=== PATIENT | female | born 1995 | race Caucasian/White ===

== ENCOUNTER 2020-04-05 09:38 | Outpatient (REF) | payer OTHER, SELFPAY ==
[2020-04-05 12:21] LABS: Vitamin B12 610 pg/mL (200-900)
[2020-04-08 14:52] LABS: Vitamin D 25-OH, D2 16 ng/mL; Vitamin D 25-OH, D3 15 ng/mL; Vitamin D 25-OH, Total 31 ng/mL (30-100)
== END 2020-04-05 09:39 | disposition home or self-care (01) ==
LOC: HO.LAB 09:38
PROVIDERS: PCP Internal Medicine; Visit Provider Hospitalist
DX: R20.2 Paresthesia of skin (principal)
CPT/HCPCS: 82306; 82607

== ENCOUNTER 2020-04-08 16:55 | Outpatient (REF) | payer OTHER, SELFPAY | END 2020-04-08 16:56 | disposition home or self-care (01) | LOC: HO.LNP 16:55 | PROVIDERS: Visit Provider Hospitalist | DX: Z20.828 Contact with and (suspected) exposure to other viral communicable diseases (principal) | CPT/HCPCS: U0003 ==

== ENCOUNTER 2020-04-20 12:51 | Outpatient (REF) | payer OTHER, SELFPAY | END 2020-04-20 12:52 | disposition home or self-care (01) | LOC: HO.HMGCLDS 12:51 | PROVIDERS: PCP Internal Medicine; Visit Provider Internal Medicine | DX: Z20.828 Contact with and (suspected) exposure to other viral communicable diseases (principal) | CPT/HCPCS: C9803; U0003 ==

== ENCOUNTER 2020-04-21 18:10 | Emergency (ER) | payer OTHER, SELFPAY ==
[2020-04-21 18:23] VITALS: BP 123/70; PULSE 80; RESP 16; TEMP 36.6; O2SAT 98; BMI 34.9
--- NOTE | 2020-04-21 18:58 | ECG_ITS ---
Test Reason : DIZZINESS Blood Pressure : / mmHG Vent. Rate : 071 BPM Atrial Rate : 071 BPM P-R Int : 146 ms QRS Dur : 084 ms QT Int : 390 ms P-R-T Axes : 044 016 021 degrees QTc Int : 423 ms Normal sinus rhythm Normal ECG When compared with ECG of 18-DEC-2019 10:12, No significant change was found Referred By: Davis Torres Electronically Signed By:ANGELO MALDONADO MD
--- NOTE | 2020-04-21 18:58 | CT_ITS ---
EXAMINATION: CT HEAD WITHOUT CONTRAST CLINICAL INFORMATION: Headache. Dizziness. COMPARISON: CT head 12/18/2019 TECHNIQUE: Contiguous axial imaging was performed from the skull base to vertex without intravenous administration of contrast. Coronal and sagittal reformatted images are performed at the CT scanner This CT examination was performed using dose optimization techniques as appropriate, variously including the following: *Automated exposure control *Adjustment of mA and/or kV according to patient size (this includes techniques or standardized protocols for targeted exams where dose is matched to indication/reason for exam; i.e. extremities or head) *Use of iterative reconstruction technique DLP: 1057 mGy-cm FINDINGS: There is no evidence of acute intracranial hemorrhage or territorial infarction. No abnormal mass effect or midline shift is seen. Krishna to white matter differentiation is well preserved. No extra-axial fluid collections are identified. The ventricles are normal in size. There is no abnormal attenuation within the brain parenchyma. The osseous structures and soft tissues are normal. The mastoid air cells and visualized portions of the paranasal sinuses are well aerated. CT/CT head/brain wo con IMPRESSION: No acute intracranial pathology.
[2020-04-21 19:52] VITALS: BP 102/65; PULSE 77; RESP 14; TEMP 36.7; O2SAT 99
[2020-04-21 20:11] LABS: Basophils Percent Auto 0.4 % (0-2); Eosinophils Absolute Auto 0.2 X10*3/uL (0.0-0.4); Eosinophils Percent Auto 2.8 % (0-4); Hematocrit 37.5 % (37-47); Hemoglobin 12.1 g/dl (12.0-16.0); Imm Gran Abs Auto 0.01 X10*3/uL (0.00-0.03); Imm Gran Pct Auto 0.2 % (0.0-0.4); Lymphocytes Absolute Auto 1.7 X10*3/uL (1.2-4.9); Lymphocytes Percent Auto 30.7 % (20-40); MANUAL DIFF FLAG NO; Mean Corpuscular HGB Conc 32.3 g/dl (31.0-35.0); Mean Corpuscular Hemoglobin 28.9 pg (27.0-33.0); Mean Corpuscular Volume 89.7 fL (80-98); Mean Platelet Volume 9.9 fL (9.4-12.3); Monocytes Absolute Auto 0.5 X10*3/uL (0.1-1.2); Neutrophils Absolute Auto 3.3 X10*3/uL (2.0-8.3); Neutrophils Percent Auto 57.9 % (45-73); Platelet Count 239 X10*3/uL (160-400); Red Blood Count 4.18 X10*6/uL (4.20-5.50); Red Cell Distribution Width 12.8 % (11.0-16.0); White Blood Count 5.7 X10*3/uL (4.8-10.8)
[2020-04-21 20:13] LABS: Glucose Urine UA NEG (NEG); Leukocyte Esterase Urine 1+ (NEG); Nitrite Urine NEG (NEG); Urine Blood TRACE (NEG); Urine Ketones NEG (NEG); Urine Protein NEG (NEG-TRACE)
[2020-04-21 20:17] LABS: Appearance Urine CLEAR; Color Urine YELLOW
[2020-04-21 20:38] LABS: Alanine Aminotransferase 15 U/L (0-31); Albumin Level 4.1 g/dL (3.5-5.0); Alkaline Phosphatase 76 U/L (39-117); Anion Gap 10 (12-20); Aspartate Amino Transferase 11 U/L (5-31); Bilirubin Total 0.3 mg/dL (0.0-1.0); Blood Urea Nitrogen 12 mg/dL (9-16); Calcium 8.8 mg/dL (8.4-10.2); Carbon Dioxide 27 mmol/L (22-29); Chloride 106 mmol/L (96-108); Creatinine Clr Calc Pharmacy 134.9; Estimated Glomerular Filt Rate > 60; Glucose Random 99 mg/dL (60-115); Magnesium 2.2 mg/dL (1.6-2.6); Sodium 139 mmol/L (135-145); Total Protein 7.1 g/dL (6.5-8.0)
[2020-04-21 20:42] LABS: Troponin-I High Sensitivity < 3.5 ng/L (<3.5-17.0)
[2020-04-21 20:46] LABS: Amphetamine Screen Urine Not Detected (Not Detect); Barbiturates, Urine Not Detected (Not Detect); Benzodiazepines Screen Urine Not Detected (Not Detect); Cannabinoid Screen Urine Not Detected (Not Detect); Cocaine Screen Urine Not Detected (Not Detect); Opiate Screen Urine Not Detected (Not Detect); Phencyclidine Screen Urine Not Detected (Not Detect)
[2020-04-21 20:50] LABS: Bacteria Urine 1+ /LPF; RBC Urine 0-2 /HPF (0); Squamous Epithelial Cell Urine TRACE /LPF
[2020-04-21 20:51] LABS: UPreg QC Valid YES; Urine Pregnancy NEGATIVE (NEGATIVE)
--- NOTE | 2020-04-21 20:54 | ED_ITS ---
HPI - Dizziness General Chief Complaint: Dizziness Stated Complaint: dizzyness Time Seen by Provider: 04/21/20 18:58 Source: patient Mode of arrival: ambulatory Limitations: no limitations History of Present Illness HPI Narrative: 24-year-old female who denies significant past medical history presents with complaint of ongoing headache and intermittent dizziness for several months. States sometimes she will feel like she can not focus and so her vision and her eyes will have a hard time doing this sometimes this will cause her to be unsteady on her feet. States she has told her doctor about these ongoing dizziness and headache a month or so back has an appointment coming up with neurologist on the 19 of May However given the continued symptoms from her come to the emergency room as she was worried. She denies any chest pain or shortness of breath. No lower extremity swelling. No history of CA. MD elicited complaint: dizziness and lightheadedness Pertinent past history: other ( migraine headache) Onset (ago): month(s) Timing: gradual onset Severity: moderate Description: sense of movement and lightheadedness History of similar symptoms: Yes Exacerbating factors: movement/ambulation and other ( some time focusing on for objects) Associated symptoms: denies other symptoms Associated neuro symptoms: diplopia Related Data Previous Rx's Medication Instructions Recorded ergocalciferol (vitamin D2) 1,250 1,250 mcg PO QWEEK 90 Days #13 cap 02/27/20 mcg (50,000 unit) capsule betamethasone, augmented 0.05 % 1 applic TOPICAL BID PRN #50 g 04/08/20 topical ointment Allergies Allergy/AdvReac Type Severity Reaction Status Date / Time metronidazole [METRONIDAZOLE] Allergy Mild HIVES Verified 04/21/20 18:25 Review of Systems Review of Systems: Constitutional: No Weight loss, No Fever, No Chills, No Night Sweats, No Fatigue, No Malaise ENT/Mouth: No Hearing loss, No Ear Pain, No Nasal Congestion, No Sinus Pain, No Hoarseness, No sore throat, No Rhinorrhea, No Swallowing Difficulty Eyes: No Eye Pain, No Swelling, No Redness, No Foreign Body, No Discharge, No Vision Changes Cardiovascular: No Chest Pain, No SOB, No Dyspnea on Exertion, No Orthopnea, No Edema, No Palpitations Respiratory: No Cough, No Sputum, No Wheezing, No Smoke Exposure, No Dyspnea Gastrointestinal: No Nausea, No Vomiting, No Diarrhea, No Constipation, No abdominal Pain, No Hematochezia, No Melena Genitourinary: no irregular bleeding, No Dysuria, No Urinary Frequency, No Hematuria, No Urinary Incontinence, No Urgency, No Flank Pain Musculoskeletal: No joint pain, No Myalgias, No Joint Swelling Skin: No Skin Lesions, No rash Neuro: No Weakness, No Numbness, No Paresthesias, No Loss of Consciousness, + Dizziness, No Headache Psych: No Social Issues Heme/Lymph: No Bruising, No Bleeding,No Lymphadenopathy Endocrine: No Polyuria, No Polydipsia, No Temperature Intolerance Yes all other systems are reviewed and are negative [facility] Social History Social History Alcohol intake: never Smoking Status: Never smoker Use of substances other than those prescribed or required for medical reasons: No Advance Directives: No Advance Directives Information Provided: Yes Physical Exam Vital Signs: Vital Signs: Last Vital Signs Temp 98.1 F 04/21/20 19:52 Pulse 77 04/21/20 19:52 Resp 14 04/21/20 19:52 BP 102/65 04/21/20 19:52 Pulse Ox 99 04/21/20 19:52 Body Mass Index 34.9 Reviewed Const: General: cooperative and healthy appearing; No acute distress or intoxicated appearing Nutritional Appearance: average body habitus Eugenio entation/consciousness: patient oriented x3 HENMT: Head: Yes normal to inspection Ears: hearing grossly normal bilaterally Eyes: General: appearance normal, both eyes and all related structures Visual Lozada: normal visual lozada by confrontation Neck: Neck: Yes normal visual inspection and No tender Thyroid: Thyroid normal Chest: Chest palpation & inspection: normal inspection of the chest Resp: Effort & Inspection: normal respiratory effort Auscultation: clear to auscultation bilaterally Cardio: Jugular venous distension: no JVD Rate: regular rate Rhythm: regular rhythm GI: Inspection: Yes normal to inspection Percussion: Yes normal to percussion Auscultation: normal bowel sounds : General: Yes no CVA tenderness Back/Spine/Pelvis: Back: no CVA tenderness Skin: General skin exam: no rashes or lesions noted Neuro: General: patient oriented x3 Extrem: General: Yes normal to inspection NIH Stroke Scale Internal: Initial- Upon Arrival Level of Consciousness: Alert Level of Consciousness Questions: Answers both questions correctly Level of Consciousness Commands: Performs both tasks correctly Best Gaze: Normal Visual: No visual loss Facial Palsy: Normal Motor Arm (Right): No drift Motor Arm (Left): No drift Motor Leg (Right): No drift Motor Leg (Left): No drift Limb Ataxia: Absent Sensory: Normal Best Language: No aphasia Dysarthia: Normal Extinction and Inattention: No abnormality Score: 0 Course Course Course Narrative: labs overall stable, TSH within normal limits. UA negative. negative. Electrolytes, troponin negative. CT of the head is done and pending results anticipated discharge home with follow-up with neural as scheduled and as well as optometry for vision testing this was reviewed with her. pending CT results at this time sign-out to Nettie LYNCH if CT is negative patient go home. MDM - Dizziness MDM Narrative Medical decision making narrative: additional differential include myopia will check labs head CT rule out mass. Low suspicion for acute intracranial process. Risks benefits of radiation reviewed patient she verbalized understanding. Differential Diagnosis Differential diagnosis: Likely benign paroxysmal positional vertigo; Unlikely adverse reaction to drug, orthostatic hypotension, vertebral basilar insufficiency, cerebrovascular accident, acute vestibular neuronitis and transient cerebral ischemia Medical Records Attestation: I reviewed the patient's medical records. Lab Data Attestation: I reviewed the patient's lab results. Result diagrams: 04/21/20 20:04 04/21/20 20:04 Labs: Lab Results 04/21/20 04/21/20 04/21/20 Range/Units 20:04 20:04 20:04 WBC 5.7 (4.8-10.8) X10*3/uL RBC 4.18 L (4.20-5.50) X10*6/uL Hgb 12.1 (12.0-16.0) g/dl Hct 37.5 (37-47) % MCV 89.7 (80-98) fL MCH 28.9 (27.0-33.0) pg MCHC 32.3 (31.0-35.0) g/dl RDW 12.8 (11.0-16.0) % Plt Count 239 (160-400) X10*3/uL MPV 9.9 (9.4-12.3) fL Immature Gran % (Auto) 0.2 (0.0-0.4) % Neut % (Auto) 57.9 (45-73) % Lymph % (Auto) 30.7 (20-40) % Pratt % (Auto) 8.0 (2-11) % Eos % (Auto) 2.8 (0-4) % Baso % (Auto) 0.4 (0-2) % Lymph # (Auto) 1.7 (1.2-4.9) X10*3/uL Pratt # (Auto) 0.5 (0.1-1.2) X10*3/uL Eos # (Auto) 0.2 (0.0-0.4) X10*3/uL Baso # (Auto) 0.0 (0.0-0.2) X10*3/uL Abs Immat Gran (auto) 0.01 (0.00-0.03) X10*3/uL Absolute Neuts (auto) 3.3 (2.0-8.3) X10*3/uL Absolute Nucleated RBC 0.000 (0.0-0.012) X10*3/uL Nucleated RBC % (auto) 0.0 (0.0-0.2) /100WBC Sodium 139 (135-145) mmol/L Potassium 4.0 (3.3-5.1) mmol/l Chloride 106 (96-108) mmol/L Carbon Dioxide 27 (22-29) mmol/L Anion Gap 10 L (12-20) BUN 12 (9-16) mg/dL Creatinine 0.74 (0.5-1.4) mg/dL Estim Creat Clear Calc 134.9 Estimated GFR > 60 Random Glucose 99 (60-115) mg/dL Calcium 8.8 (8.4-10.2) mg/dL Magnesium 2.2 (1.6-2.6) mg/dL Total Bilirubin 0.3 (0.0-1.0) mg/dL AST 11 (5-31) U/L ALT 15 (0-31) U/L Alkaline Phosphatase 76 (39-117) U/L Troponin I High Sens < 3.5 (<3.5-17.0) ng/L Total Protein 7.1 (6.5-8.0) g/dL Albumin 4.1 (3.5-5.0) g/dL Urine Color Urine Appearance Urine pH (5.0-8.0) Ur Specific [place] (1.005-1.025) Urine Protein (NEG-TRACE) MG/DL Urine Glucose (UA) (NEG) MG/DL Urine Ketones (NEG) MG/DL Urine Blood (NEG) Urine Nitrite (NEG) Ur Leukocyte Esterase (NEG) Urine RBC (0) /HPF Urine WBC (0-4) /HPF Ur Squamous Epith Cells /LPF Urine Bacteria /LPF Urine Test (NEGATIVE) Urine Opiates Screen (Not Detect) Ur Barbiturates Screen (Not Detect) Ur Phencyclidine Scrn (Not Detect) Ur Amphetamines Screen (Not Detect) U Benzodiazepines Scrn (Not Detect) Urine Cocaine Screen (Not Detect) U Marijuana (THC) Screen (Not Detect) 04/21/20 04/21/20 Range/Units 20:04 20:04 WBC (4.8-10.8) X10*3/uL RBC (4.20-5.50) X10*6/uL Hgb (12.0-16.0) g/dl Hct (37-47) % MCV (80-98) fL MCH (27.0-33.0) pg MCHC (31.0-35.0) g/dl RDW (11.0-16.0) % Plt Count (160-400) X10*3/uL MPV (9.4-12.3) fL Immature Gran % (Auto) (0.0-0.4) % Neut % (Auto) (45-73) % Lymph % (Auto) (20-40) % Pratt % (Auto) (2-11) % Eos % (Auto) (0-4) % Baso % (Auto) (0-2) % Lymph # (Auto) (1.2-4.9) X10*3/uL Pratt # (Auto) (0.1-1.2) X10*3/uL Eos # (Auto) (0.0-0.4) X10*3/uL Baso # (Auto) (0.0-0.2) X10*3/uL Abs Immat Gran (auto) (0.00-0.03) X10*3/uL Absolute Neuts (auto) (2.0-8.3) X10*3/uL Absolute Nucleated RBC (0.0-0.012) X10*3/uL Nucleated RBC % (auto) (0.0-0.2) /100WBC Sodium (135-145) mmol/L Potassium (3.3-5.1) mmol/l Chloride (96-108) mmol/L Carbon Dioxide (22-29) mmol/L Anion Gap (12-20) BUN (9-16) mg/dL Creatinine (0.5-1.4) mg/dL Estim Creat Clear Calc Estimated GFR Random Glucose (60-115) mg/dL Calcium (8.4-10.2) mg/dL Magnesium (1.6-2.6) mg/dL Total Bilirubin (0.0-1.0) mg/dL AST (5-31) U/L ALT (0-31) U/L Alkaline Phosphatase (39-117) U/L Troponin I High Sens (<3.5-17.0) ng/L Total Protein (6.5-8.0) g/dL Albumin (3.5-5.0) g/dL Urine Color YELLOW Urine Appearance CLEAR Urine pH 7.0 (5.0-8.0) Ur Specific [place] 1.010 (1.005-1.025) Urine Protein NEG (NEG-TRACE) MG/DL Urine Glucose (UA) NEG (NEG) MG/DL Urine Ketones NEG (NEG) MG/DL Urine Blood TRACE (NEG) Urine Nitrite NEG (NEG) Ur Leukocyte Esterase 1+ H (NEG) Urine RBC 0-2 (0) /HPF Urine WBC 1-4 (0-4) /HPF Ur Squamous Epith Cells TRACE /LPF Urine Bacteria 1+ /LPF Urine Test NEGATIVE (NEGATIVE) Urine Opiates Screen Not Detected (Not Detect) Ur Barbiturates Screen Not Detected (Not Detect) Ur Phencyclidine Scrn Not Detected (Not Detect) Ur Amphetamines Screen Not Detected (Not Detect) U Benzodiazepines Scrn Not Detected (Not Detect) Urine Cocaine Screen Not Detected (Not Detect) U Marijuana (THC) Screen Not Detected (Not Detect) Discharge Plan Discharge Clinical Impression: Dizziness, Vision abnormalities Patient Disposition: Home, Self-Care Instructions: Dizziness (ED), Blurred Vision (ED) Prescriptions: No Action ergocalciferol (vitamin D2) 1,250 mcg (50,000 unit) capsule 1,250 mcg PO QWEEK 90 Days Qty: 13 RF: 0 betamethasone, augmented [Diprolene (augmented)] 0.05 % ointment 1 applic topical BID PRN (Reason: allergic reaction) Qty: 50 RF: 2 Referrals: Fartun Grady MD [Primary Care Provider] - 5 days ED Physician,Generic [Emergency Provider] - 1 week ( Follow-up with ophthalmology as discussed Follow-up with Neurology as planned )
[2020-04-21 20:58] LABS: Thyroid Stimulating Hormone 0.95 uIU/mL (0.32-4.0)
[2020-04-21 22:00] VITALS: BP 102/65; PULSE 77; RESP 14; TEMP 36.7; O2SAT 99
== END 2020-04-21 22:46 | disposition home or self-care (01) ==
PROVIDERS: Nurse Practitioner Primary Care; Emergency Provider Emergency Medicine Emergency Medical Services; PCP Internal Medicine
DX: R42 Dizziness and giddiness (principal); H53.8 Other visual disturbances; H53.2 Diplopia; G43.909 Migraine, unspecified, not intractable, without status migrainosus
CPT/HCPCS: 36415; 70450; 80053; 80307; 81001; 81025; 83735; 84443; 84484; 85025; 87086; 93005; 99284

== ENCOUNTER → 2020-05-04 08:11 | Outpatient (BNVA) | payer OTHER, SELFPAY | PROVIDERS: PCP Internal Medicine; Referring Provider Internal Medicine; Visit Provider Psychiatry & Neurology Neurology | DX: Z76.89 Persons encountering health services in other specified circumstances (principal) ==

== ENCOUNTER 2020-05-21 20:23 | Emergency (ER) | payer OTHER, SELFPAY ==
[2020-05-21 20:28] VITALS: BP 112/78; PULSE 84; RESP 16; TEMP 37.2; O2SAT 99; BMI 34.9
--- NOTE | 2020-05-21 20:37 | CT_ITS ---
EXAMINATION: CT HEAD WITHOUT CONTRAST CLINICAL INFORMATION: Headache. COMPARISON: CT brain dated 04/21/2020. TECHNIQUE: Contiguous axial imaging was performed from the skull base to vertex without intravenous administration of contrast. This CT examination was performed using dose optimization techniques as appropriate, variously including the following: *Automated exposure control *Adjustment of mA and/or kV according to patient size (this includes techniques or standardized protocols for targeted exams where dose is matched to indication/reason for exam; i.e. extremities or head) *Use of iterative reconstruction technique DLP: 708 mGy-cm. FINDINGS: There is no evidence of acute intracranial hemorrhage or territorial infarction. No abnormal mass effect or midline shift is seen. Krishna to white matter differentiation is well preserved. No extra-axial fluid collections are identified. The ventricles are normal in size. There is no abnormal attenuation within the brain parenchyma. The osseous structures and soft tissues are normal. The mastoid air cells and visualized portions of the paranasal sinuses are well aerated. CT/CT head/brain wo con IMPRESSION: No acute intracranial pathology.
--- NOTE | 2020-05-21 20:38 | ED.HA ---
HPI - Headache General Chief Complaint: Headache Stated Complaint: headache x 3 days/nausea Time Seen by Provider: 05/21/20 20:37 Source: patient and EMS Mode of arrival: EMS Limitations: no limitations History of Present Illness MD elicited complaint: headache Pertinent past history: other (anxiety) Onset (ago): day(s) (3) Onset description: gradually and while at rest Location: right and temporal Severity: severe Quality & Timing: aching, constant and progressively worsening Exacerbating factors: other (under significant amount of stress, just started citalopram 5mg yesterday for her anxiety/depression) Relieving factors: nothing and other (has not tried any OTC medications) Context: occurred at rest Associated symptoms: other (anxiety) Treatments prior to arrival: none Related Data Home Medications Medication Instructions Recorded Confirmed albuterol sulfate 90 mcg/actuation INHALATION 05/06/20 05/06/20 aerosol inhaler Previous Rx's Medication Instructions Recorded betamethasone, augmented 0.05 % 1 applic TOPICAL BID PRN #50 g 04/08/20 topical ointment hydroxyzine HCl 25 mg PO TID PRN #30 tab 05/21/20 Allergies Allergy/AdvReac Type Severity Reaction Status Date / Time metronidazole [METRONIDAZOLE] Allergy Mild HIVES Verified 05/06/20 15:26 Review of Systems Review of Systems: Constitutional : No Fever, No Chills, No Fatigue ENT/Mouth : No sore throat, No Rhinorrhea Eyes: No Eye Pain, No Swelling, No Redness Cardiovascular : No Chest Pain, No SOB, No Dyspnea on Exertion Respiratory : No Cough, No Sputum Gastrointestinal : No Nausea, No Vomiting, No Diarrhea, No abdominal Pain Genitourinary : No Dysuria, No Urinary Frequency, No Hematuria, Musculoskeletal : No joint pain, No Myalgias, No Joint Swelling Skin : No Skin Lesions, No rash Neuro : No Weakness, No Numbness, No Dizziness, positive Headache Psych : pos Anxiety/Panic, No Depression Heme/Lymph: No Bruising, No Bleeding,No Lymphadenopathy Endocrine : No Polyuria, No Polydipsia All other systems reviewed and are negative [facility] Past Medical History Attestation statement: The following information was validated with the patient. Medical History Anxiety Depression Dermatitis Eye strain, bilateral Insomnia Intermittent asthma without complication Irregular menstrual bleeding Paresthesia of bilateral legs Paresthesias Surgical History No pertinent past surgical history Family History Family History Father Asthma Mother Asthma Hypothyroidism Brother Depression Social History Social History Alcohol intake: never Smoking Status: Never smoker Use of substances other than those prescribed or required for medical reasons: No Advance Directives: No Advance Directives Information Provided: No Physical Exam Vital Signs: Vital Signs: Last Vital Signs Temp 99 F 05/21/20 20:28 Pulse 84 05/21/20 20:28 Resp 16 05/21/20 20:28 BP 112/78 05/21/20 20:28 Pulse Ox 99 05/21/20 20:28 Body Mass Index 34.9 Appearance: Alert. Oriented X3. No acute distress. Anxious, somewhat tearful when we discuss her anxiety/depression Eyes: Pupils equal, round and reactive to light. ENT: Pharynx normal. Neck: Normal inspection. Neck supple. no meningeal signs CVS: Normal heart rate and rhythm. Pulses normal. Respiratory: No respiratory distress. Breath sounds normal. Abdomen: Soft and non-tender. Skin: Skin warm and dry. Normal skin color. Normal skin turgor. Extremities: No lower extremity edema. No calf ttp Neuro: Oriented X 3. No motor deficit. No sensory deficit. Course Course Course Narrative: feels much better, stable for DC MDM - Headache MDM Narrative Medical decision making narrative: 25 yo female with anxiety, hx of headaches but not migraines here with gradual onset headache with no fever, no neuro findings, no AC therapy, seems like she is under significant amount of stress as when she is prompted about her anxiety she becomes tearful, given onset and duration doubt SAH and no fevers or meningeal signs doubt meningitis Lab Data Labs: Lab Results 05/21/20 Range/Units 21:23 Urine Test NEGATIVE (NEGATIVE) Discharge Plan Discharge Clinical Impression: Tension headache, Anxiety Patient Disposition: Home, Self-Care Instructions: Tension Headache (ED), Anxiety (ED) Additional Instructions: return to ED for any worsening symptoms or concerns Prescriptions: New hydroxyzine HCl 25 mg tablet 25 mg PO TID PRN (Reason: anxiety) Qty: 30 RF: 0 No Action albuterol sulfate 90 mcg/actuation HFA aerosol inhaler inhalation RF: 0 betamethasone, augmented [Diprolene (augmented)] 0.05 % ointment 1 applic topical BID PRN (Reason: allergic reaction) Qty: 50 RF: 2 Referrals: Physician,Unknown [Primary Care Provider] - 3 days (if not better) Stand Alone Forms: Work/School Release
[2020-05-21] MEDS: Acetaminophen 325 MG TABLET 650 MG PO (21:11)
[2020-05-21] MEDS: Ibuprofen 600 MG TABLET PO (21:12)
[2020-05-21] MEDS: LORazepam 1 MG TABLET PO (21:12)
[2020-05-21 21:30] LABS: UPreg QC Valid YES; Urine Pregnancy NEGATIVE (NEGATIVE)
[2020-05-21 22:13] VITALS: BP 114/77; PULSE 82; RESP 18; TEMP 37.1; O2SAT 96
[2020-05-21] MEDS: Magnesium Hydrox/Alum Hydrox 30 ML ORAL.SUSP PO (22:13)
== END 2020-05-21 22:22 | disposition home or self-care (01) ==
PROVIDERS: Emergency Provider Emergency Medicine
DX: G44.209 Tension-type headache, unspecified, not intractable (principal); F41.9 Anxiety disorder, unspecified
CPT/HCPCS: 70450; 81025; 99284

== ENCOUNTER 2020-06-02 12:59 | Outpatient (REF) | payer OTHER, SELFPAY ==
[2020-06-03 10:31] LABS: BV Int Neg Control Negative (Negative); BV Int Pos Control Positive (Positive)
[2020-06-03 18:52] LABS: C. trachomatis RNA TMA NOT DETECTED (NOT DETECTED); N. gonorrhoeae RNA TMA NOT DETECTED (NOT DETECTED)
== END 2020-06-02 13:00 | disposition home or self-care (01) ==
LOC: HO.LAB 12:59
PROVIDERS: Obstetrics & Gynecology; PCP Internal Medicine; Visit Provider Advanced Practice Midwife
DX: N93.9 Abnormal uterine and vaginal bleeding, unspecified (principal); N92.6 Irregular menstruation, unspecified; Z11.3 Encounter for screening for infections with a predominantly sexual mode of transmission
CPT/HCPCS: 36415; 87480; 87491; 87510; 87591; 87660; 99202

== ENCOUNTER 2020-06-07 20:51 | Emergency (ER) | payer OTHER, SELFPAY ==
[2020-06-07 21:14] VITALS: BP 107/72; PULSE 89; RESP 18; TEMP 36.4; O2SAT 98; BMI 34.6
[2020-06-07 22:54] LABS: MANUAL DIFF FLAG NO
[2020-06-07 22:55] LABS: Basophils Percent Auto 0.2 % (0-2); Eosinophils Absolute Auto 0.1 X10*3/uL (0.0-0.4); Hematocrit 41.6 % (37-47); Hemoglobin 13.3 g/dl (12.0-16.0); Imm Gran Abs Auto 0.02 X10*3/uL (0.00-0.03); Imm Gran Pct Auto 0.2 % (0.0-0.4); Lymphocytes Absolute Auto 1.6 X10*3/uL (1.2-4.9); Lymphocytes Percent Auto 16.8 % (20-40); Mean Corpuscular Hemoglobin 28.9 pg (27.0-33.0); Mean Corpuscular Volume 90.4 fL (80-98); Mean Platelet Volume 10.1 fL (9.4-12.3); Monocytes Absolute Auto 0.6 X10*3/uL (0.1-1.2); Neutrophils Absolute Auto 7.1 X10*3/uL (2.0-8.3); Neutrophils Percent Auto 75.8 % (45-73); Platelet Count 282 X10*3/uL (160-400); White Blood Count 9.3 X10*3/uL (4.8-10.8)
[2020-06-07 23:29] LABS: Anion Gap 15 (12-20); Blood Urea Nitrogen 12 mg/dL (9-16); Calcium 9.8 mg/dL (8.4-10.2); Carbon Dioxide 23 mmol/L (22-29); Chloride 106 mmol/L (96-108); Creatinine Clr Calc Pharmacy 126.2; Estimated Glomerular Filt Rate > 60; Glucose Random 93 mg/dL (60-115); Potassium 4.4 mmol/l (3.3-5.1); Sodium 140 mmol/L (135-145)
--- NOTE | 2020-06-08 00:39 | ED_ITS ---
HPI - Headache General Chief Complaint: Headache Stated Complaint: Headache Time Seen by Provider: 06/08/20 00:37 Source: patient Mode of arrival: ambulatory History of Present Illness HPI Narrative: This is a 25-year-old female with history of asthma who presents with ?months headache and a weird feeling in my head that I have discussed my primary care provider and was informed that I was anxious?. Patient describes the pain as coming all her bilateral shoulders into the neck area and extending over the portion of the back and top of her head. Patient denies any associated fevers, chills shortness of breath, photosensitivity, GI symptoms, symptoms changes in vision/speech, but states that she is concerned that she is having s troke-like symptoms. On review of prior visits and documentation patient has been evaluated for the sensations previously with negative workups. MD elicited complaint: headache Related Data Previous Rx's Medication Instructions Recorded betamethasone, augmented 0.05 % 1 applic TOPICAL BID PRN #50 g 04/08/20 topical ointment hydroxyzine HCl 25 mg PO TID PRN #30 tab 05/21/20 escitalopram oxalate 10 mg tablet 10 mg PO DAILY #30 tab 05/26/20 Allergies Allergy/AdvReac Type Severity Reaction Status Date / Time metronidazole [METRONIDAZOLE] Allergy Mild HIVES Verified 06/07/20 21:14 Review of Systems Review of Systems: Pertinent positives and negatives as stated per HPI 10 point review systems is otherwise negative. [facility] Past Medical History Source: nursing notes reviewed Medical History Anxiety Depression Dermatitis Eye strain, bilateral Generalized anxiety disorder Insomnia Intermittent asthma without complication Irregular menstrual bleeding Paresthesia of bilateral legs Paresthesias Surgical History No pertinent past surgical history Family History Family History Father Asthma Mother Asthma Hypothyroidism Brother Depression Social History Social History Alcohol intake: never Smoking Status: Never smoker Advance Directives: No Physical Exam Vital Signs: Vital Signs: Last Vital Signs Temp 97.6 F 06/07/20 21:14 Pulse 78 06/08/20 03:26 Resp 16 06/08/20 03:26 BP 117/73 06/08/20 03:26 Pulse Ox 97 06/08/20 03:26 Body Mass Index 34.6 VITAL SIGNS: Reviewed. GENERAL: Well developed, well nourished, in no acute distress. HEAD: Normocephalic/atraumatic, EYES: PERRLA, EOMI intact without paind EARS: Ext canals without abnormality, TMs non-bulging and non-erythematous NOSE: Nares patent bilateral OROPHARYNX: no oral lesions noted, posterior pharynx clear NECK: Supple, no adenopathy LUNGS: Normal breath sounds. No adventitious sounds or accessory muscle use. SpO2<98> CARDIOVASCULAR: Regular rate and rhythm without noted murmurs ABDOMEN: Soft, non-tender, non-distended with bowel sounds. NEUROLOGIC: Alert and oriented x 4. Strength and sensation to light touch were grossly intact x 4, no pronator drift, no facial asymmetry or sensory deficits. Course Course Course Narrative: A 25-year-old female with history and clinical presentation most consistent with a combination of anxiety as well as tension headache. There are no neurologic findings on clinical exam to from CT head and review of all investigations is negative for any acute findings to explain patient's symptoms. In addition, this is a meningitis given the duration of symptoms. Will treat with combination of analgesics as well as a IV fluid and re-evaluate. On re-evaluation patient has had complete resolution of her symptoms and was discharged home in stable condition. MDM - Headache Lab Data Result diagrams: 06/07/20 22:40 06/07/20 22:40 Labs: Lab Results 06/07/20 06/07/20 Range/Units 22:40 22:40 WBC 9.3 (4.8-10.8) X10*3/uL RBC 4.60 (4.20-5.50) X10*6/uL Hgb 13.3 (12.0-16.0) g/dl Hct 41.6 (37-47) % MCV 90.4 (80-98) fL MCH 28.9 (27.0-33.0) pg MCHC 32.0 (31.0-35.0) g/dl RDW 13.0 (11.0-16.0) % Plt Count 282 (160-400) X10*3/uL MPV 10.1 (9.4-12.3) fL Immature Gran % (Auto) 0.2 (0.0-0.4) % Neut % (Auto) 75.8 H (45-73) % Lymph % (Auto) 16.8 L (20-40) % [place] % (Auto) 6.0 (2-11) % Eos % (Auto) 1.0 (0-4) % Baso % (Auto) 0.2 (0-2) % Lymph # (Auto) 1.6 (1.2-4.9) X10*3/uL [place] # (Auto) 0.6 (0.1-1.2) X10*3/uL Eos # (Auto) 0.1 (0.0-0.4) X10*3/uL Baso # (Auto) 0.0 (0.0-0.2) X10*3/uL Abs Immat Gran (auto) 0.02 (0.00-0.03) X10*3/uL Absolute Neuts (auto) 7.1 (2.0-8.3) X10*3/uL Absolute Nucleated RBC 0.000 (0.0-0.012) X10*3/uL Nucleated RBC % (auto) 0.0 (0.0-0.2) /100WBC Sodium 140 (135-145) mmol/L Potassium 4.4 (3.3-5.1) mmol/l Chloride 106 (96-108) mmol/L Carbon Dioxide 23 (22-29) mmol/L Anion Gap 15 (12-20) BUN 12 (9-16) mg/dL Creatinine 0.78 (0.5-1.4) mg/dL Estim Creat Clear Calc 126.2 Estimated GFR > 60 Random Glucose 93 (60-115) mg/dL Calcium 9.8 D (8.4-10.2) mg/dL Discharge Plan Discharge Clinical Impression: Headache Qualifiers: Headache type: tension-type Headache chronicity pattern: chronic headache Intractability: not intractable Qualified Code(s): G44.229 - Chronic tension- type headache, not intractable Patient Disposition: Home, Self-Care Instructions: Tension Headache (ED) Additional Instructions: 1. Tylenol 1000 mg, orally every 6 hours as needed for headache control. Not exceed 4000 mg in 24 hours. 2. Ibuprofen 400 mg, orally with milk or food, every 6 hours as needed for headache control. Combine with Tylenol for additional symptom relief. 3. Increase fluid hydration especially with water. 4. Follow-up with your primary care provider in 2-3 days. Do not hesitate to return to the emergency department should she develop any acute worsening of her symptoms. Prescriptions: No Action hydroxyzine HCl 25 mg tablet 25 mg PO TID PRN (Reason: anxiety) Qty: 30 RF: 0 escitalopram oxalate 10 mg tablet 10 mg PO DAILY Qty: 30 RF: 0 betamethasone, augmented [Diprolene (augmented)] 0.05 % ointment 1 applic topical BID PRN (Reason: allergic reaction) Qty: 50 RF: 2 Referrals: Fartun Grady MD [Primary Care Provider] - 2 days (Please re-evaluate and managed in the outpatient setting for chronic headache.) Interventions: ED Discharge Assessment Last Done: 06/08/20 03:28 Discharge Date/Time: 06/08/20 03:29
[2020-06-08 01:03] VITALS: BP 117/73; PULSE 89; RESP 16; O2SAT 98
[2020-06-08] MEDS: 0.9 % Sodium Chloride 1,000 ML 999 ML IV (01:17)
[2020-06-08] MEDS: Acetaminophen 325 MG TABLET 975 MG PO (01:18)
[2020-06-08] MEDS: Ketorolac Tromethamine 15 MG/ML VIAL IVPUSH (01:19)
[2020-06-08 03:26] VITALS: BP 117/73; PULSE 78; RESP 16; O2SAT 97
--- NOTE | 2020-06-08 03:28 | PC.NURSE ---
pt reports no longer experiencing headache. awake and alert, ambulatory with steady gait.
== END 2020-06-08 03:29 | disposition home or self-care (01) ==
PROVIDERS: Emergency Provider Student in an Organized Health Care Education/Training Program; PCP Internal Medicine
DX: G44.229 Chronic tension-type headache, not intractable (principal)
CPT/HCPCS: 36415; 80048; 85025; 96361; 96374; 99284; J1885

== ENCOUNTER 2020-06-09 14:11 | Outpatient (REF) | payer OTHER, SELFPAY ==
--- NOTE | 2020-06-09 14:14 | US_ITS ---
EXAMINATION: US PELVIS, COMPLETE CLINICAL INFORMATION: Pelvic and perineal pain; the last menstrual period was one month prior. COMPARISON: Pelvic ultrasound dated 09/22/2017. TECHNIQUE: Transabdominal and transvaginal imaging was performed. FINDINGS: The uterus is of normal size and echogenicity measuring 8.9 x 3.8 x 4.9 cm. The uterus is anteverted. A regular homogeneous endometrium is identified measuring 1.2 cm. There is trace fluid present within the endocervical canal. A Nabothian cyst is seen within the cervix. Both ovaries are of normal size and echogenicity. The right ovary measures 4.6 x 2.9 x 3.2 cm for a volume of 22.2 mL. The right ovary contains a 2.2 x 1.7 x 2.1 cm simple cyst. The left ovary measures 3.9 x 1.9 x 2.4 cm for a volume of 9.4 mL. There is no pelvic free fluid. No adnexal mass is seen. US/US pelvic complete IMPRESSION: 1. A 2.2 cm maximal diameter simple right ovarian cyst is incidentally noted. 2. There is trace nonspecific anechoic fluid within the endocervical canal. 3. A Nabothian cyst is seen within the cervix.
--- NOTE | 2020-06-09 14:14 | US_ITS ---
EXAMINATION: US PELVIS, COMPLETE CLINICAL INFORMATION: Pelvic and perineal pain; the last menstrual period was one month prior. COMPARISON: Pelvic ultrasound dated 09/22/2017. TECHNIQUE: Transabdominal and transvaginal imaging was performed. FINDINGS: The uterus is of normal size and echogenicity measuring 8.9 x 3.8 x 4.9 cm. The uterus is anteverted. A regular homogeneous endometrium is identified measuring 1.2 cm. There is trace fluid present within the endocervical canal. A Nabothian cyst is seen within the cervix. Both ovaries are of normal size and echogenicity. The right ovary measures 4.6 x 2.9 x 3.2 cm for a volume of 22.2 mL. The right ovary contains a 2.2 x 1.7 x 2.1 cm simple cyst. The left ovary measures 3.9 x 1.9 x 2.4 cm for a volume of 9.4 mL. There is no pelvic free fluid. No adnexal mass is seen. US/US transvaginal IMPRESSION: 1. A 2.2 cm maximal diameter simple right ovarian cyst is incidentally noted. 2. There is trace nonspecific anechoic fluid within the endocervical canal. 3. A Nabothian cyst is seen within the cervix.
[2020-06-09 16:17] LABS: Syphilis Screen Nonreactive (Nonreactive)
[2020-06-09 16:21] LABS: Ferritin 75 ng/mL (10-122)
[2020-06-10 09:21] LABS: HBsAGNum1 0.21 S/CO (0.00-0.99); HIV AB/AG Nonreactive (Nonreactive); HIV Num 1 0.07 S/CO (0.00-0.99); Hepatitis B Surface Antigen Negative (Negative)
[2020-06-10 09:52] LABS: Prolactin 11.3 ng/mL
[2020-06-11 18:32] LABS: C. trachomatis RNA TMA NOT DETECTED (NOT DETECTED); N. gonorrhoeae RNA TMA NOT DETECTED (NOT DETECTED)
[2020-06-17 15:37] LABS: Testosterone, Free 12.1 pg/mL (0.1-6.4); Testosterone, Total 58 ng/dL (2-45)
== END 2020-06-09 14:12 | disposition home or self-care (01) ==
LOC: HO.US 14:11
PROVIDERS: Psychiatry & Neurology Neurology; PCP Internal Medicine; Visit Provider Obstetrics & Gynecology
DX: R10.2 Pelvic and perineal pain (principal); N92.6 Irregular menstruation, unspecified; Z11.3 Encounter for screening for infections with a predominantly sexual mode of transmission; N91.2 Amenorrhea, unspecified; R20.2 Paresthesia of skin; R51.9 Headache, unspecified
CPT/HCPCS: 36415; 76830; 76856; 82728; 83498; 84146; 84402; 84403; 86780; 87340; 87389; 87491; 87591

== ENCOUNTER → 2020-06-23 12:00 | Outpatient (BNVA) | payer OTHER, SELFPAY | PROVIDERS: PCP Internal Medicine; Visit Provider Obstetrics & Gynecology ==

== ENCOUNTER → 2020-07-07 14:37 | Outpatient (REF) | payer OTHER, SELFPAY | LOC: HO.SL 14:37 | PROVIDERS: Visit Provider Psychiatry & Neurology Neurology | DX: G47.00 Insomnia, unspecified (principal); R06.83 Snoring | CPT/HCPCS: 95806 ==

== ENCOUNTER → 2020-07-27 15:52 | Outpatient (BNVA) | payer OTHER, SELFPAY | PROVIDERS: Visit Provider Obstetrics & Gynecology | DX: Z31.69 Encounter for other general counseling and advice on procreation (principal) ==

== ENCOUNTER → 2020-10-07 14:52 | Outpatient (BNVA) | payer OTHER, SELFPAY | PROVIDERS: PCP Internal Medicine; Visit Provider Advanced Practice Midwife | DX: N92.6 Irregular menstruation, unspecified (principal) | CPT/HCPCS: 99212 ==

== ENCOUNTER 2020-10-14 14:23 | Outpatient (REF) | payer OTHER, SELFPAY ==
--- NOTE | ~2020-10-14 | US_ITS ---
EXAMINATION: US OBSTETRICAL CLINICAL INFORMATION: ; for dates and viability. COMPARISON: None. LMP: Uncertain. Gestational age by maternal dates is uncertain. Estimated date of delivery by maternal dates is uncertain. TECHNIQUE: Ultrasound of the maternal pelvis is performed using transabdominal and transvaginal transducers. Transvaginal imaging is performed due to inadequate visualization transabdominally. M-mode Doppler is also performed . FINDINGS: There is a single intrauterine gestational sac with visible embryo/fetus, and cardiac activity. No yolk sac is seen. There is no significant subchorionic hemorrhage or hematoma. HR: 169 beats per minute CRL (crown rump length): 3.46 cm (10 weeks and 3 days +/- 4 days) SAMSON (estimated date of delivery): 05/09/2021 +/- 4 days. MATERNAL ADNEXA: The right maternal ovary measures 4.3 x 2.2 x 3.2 centimeters. The left maternal ovary is not visualized due to overlapping bowel gas. There is no significant maternal adnexal mass. No maternal pelvic ascites. US/US OB pelvic and transvaginal IMPRESSION: 1. Single intrauterine gestation with ultrasound gestational age of 10 weeks and 3 days +/- 4 days. 2. The estimated date of delivery is 05/09/2021 +/- 4 days. 3. No maternal adnexal mass or pelvic ascites.
== END 2020-10-14 14:24 | disposition home or self-care (01) ==
LOC: HO.US 14:23
PROVIDERS: PCP Internal Medicine; Visit Provider Advanced Practice Midwife
DX: Z34.90 Encounter for supervision of normal pregnancy, unspecified, unspecified trimester (principal)
CPT/HCPCS: 76801; 76817

== ENCOUNTER 2020-10-26 01:00 | Emergency (ER) | payer OTHER, SELFPAY ==
[2020-10-26 01:02] VITALS: BP 100/60; BP 139/89; PULSE 113; PULSE 97; RESP 18; TEMP 37.2; O2SAT 97; O2SAT 99; BMI 36.6
[2020-10-26 01:06] VITALS: BP 139/89; PULSE 93; RESP 16; TEMP 36.8; O2SAT 98; BMI 34.6
[2020-10-26 02:03] LABS: Glucose Urine UA NEG (NEG); Leukocyte Esterase Urine 2+ (NEG); Nitrite Urine NEG (NEG); Specific Gravity - Urine 1.015 (1.005-1.025); UACC Culture Trigger YES; Urine Blood NEG (NEG); Urine Ketones NEG (NEG); Urine Protein NEG (NEG-TRACE)
[2020-10-26 02:05] LABS: Appearance Urine CLOUDY; Color Urine YELLOW; UPreg QC Valid YES; Urine Pregnancy POSITIVE (NEGATIVE)
[2020-10-26 02:12] LABS: Amorphous Sediment Urine 3+ /LPF; Bacteria Urine 2+ /LPF; RBC Urine 0 /HPF (0); Squamous Epithelial Cell Urine 2+ /LPF; WBC Urine 0-2 /HPF (0-4)
--- NOTE | 2020-10-26 02:12 | ED.PREGNANCY ---
HPI - General Chief complaint: Headache Stated complaint: headache nausea Time Seen by Provider: 10/26/20 01:02 Source: patient Mode of arrival: EMS History of Present Illness HPI Narrative: This is a 25-year-old female, gravid, 12 weeks who presents via EMS for complaints of nausea, vomiting, headaches and denies any lower pelvic/abdominal pain or vaginal bleeding/discharge. Patient does report feeling some chills as well as endorsing cough and sore throat. Related Data Home Medications Medication Instructions Recorded Confirmed ergocalciferol (vitamin D2) 1,250 1,250 mcg PO QWEEK 06/11/20 06/30/20 mcg (50,000 unit) capsule Previous Rx's Medication Instructions Recorded escitalopram oxalate 10 mg tablet 10 mg PO DAILY #30 tab 06/23/20 hydroxyzine HCl 25 mg tablet 25 mg PO TID PRN #30 tab 06/23/20 trazodone 50 mg tablet 50 mg PO BEDTIME PRN #30 tab 07/26/20 vitamin with calcium 1 tab PO DAILY #30 tab 10/07/20 no.72-iron 27 mg-folic acid 1 mg tablet Allergies Allergy/AdvReac Type Severity Reaction Status Date / Time metronidazole [METRONIDAZOLE] Allergy Mild HIVES Verified 10/07/20 14:57 Review of Systems Review of Systems: Pertinent positives and negatives as stated in HPI 10 point review of systems is otherwise negative. [facility] Past Medical History Source: nursing notes reviewed Medical History Anxiety Depression Dermatitis Eye strain, bilateral Generalized anxiety disorder Insomnia Intermittent asthma without complication Irregular menstrual bleeding Paresthesia of bilateral legs Paresthesias Recurrent headache Surgical History History of appendectomy No pertinent past surgical history Family History Family History Father Asthma Mother Asthma Hypothyroidism Brother Depression Social History Social History Alcohol intake: never Patient Tobacco Use Status: Never used Tobacco Use of substances other than those prescribed or required for medical reasons: No Advance Directives: No Patient : Yes Sexual orientation: Straight/Heterosexual Gender identity: female Physical Exam Vital Signs: Vital Signs: Last Vital Signs Temp 98.2 F 10/26/20 01:06 Pulse 93 10/26/20 01:06 Resp 16 10/26/20 01:06 BP 139/89 10/26/20 01:06 Pulse Ox 98 10/26/20 01:06 Body Mass Index 34.6 VITAL SIGNS: Reviewed. GENERAL: Well developed, well nourished, in no acute distress. HEAD: Normocephalic/atraumatic EYES: PERRLA, EOMI EARS: Ext canals without abnormality, TMs non-bulging and non-erythematous NOSE: Nares patent bilateral OROPHARYNX: no oral lesions noted, posterior pharynx clear and non-erythematous without noted tonsillar enlargement/erythema/exudates NECK: Supple, no adenopathy LUNGS: Normal breath sounds. No adventitious sounds or accessory muscle use. SpO2<98> CARDIOVASCULAR: Regular rate and rhythm without noted murmurs, no JVD or lower extremity edema. ABDOMEN: Soft, non-tender, non-distended with bowel sounds. SKIN: Inspection of the skin reveals no rashes [id number] Course Course Course Narrative: 25-year-old female with history and clinical presentation possible UTI or viral illness. Review of all investigations significant for UTI, patient received IV fluid hydration, antiemetic, initial antibiotics and on re-evaluation is feeling much better. She will be discharged on remaining course of antibiotics for her UTI and instructed to follow-up with her legal technician. MDM - OB/Uterine Contractions Lab Data Result diagrams: 10/26/20 02:17 10/26/20 02:17 Labs: Lab Results 10/26/20 10/26/20 10/26/20 Range/Units 01:53 01:53 02:17 WBC 9.6 (4.8-10.8) X10*3/uL RBC 4.01 L (4.20-5.50) X10*6/uL Hgb 11.7 L (12.0-16.0) g/dl Hct 35.5 L (37-47) % MCV 88.5 (80-98) fL MCH 29.2 (27.0-33.0) pg MCHC 33.0 (31.0-35.0) g/dl RDW 13.0 (11.0-16.0) % Plt Count 221 (160-400) X10*3/uL MPV 10.2 (9.4-12.3) fL Immature Gran % (Auto) 0.5 H (0.0-0.4) % Neut % (Auto) 64.9 (45-73) % Lymph % (Auto) 21.6 (20-40) % [place] % (Auto) 8.9 (2-11) % Eos % (Auto) 3.8 (0-4) % Baso % (Auto) 0.3 (0-2) % Lymph # (Auto) 2.1 (1.2-4.9) X10*3/uL [place] # (Auto) 0.9 (0.1-1.2) X10*3/uL Eos # (Auto) 0.4 (0.0-0.4) X10*3/uL Baso # (Auto) 0.0 (0.0-0.2) X10*3/uL Abs Immat Gran (auto) 0.05 H (0.00-0.03) X10*3/uL Absolute Neuts (auto) 6.2 (2.0-8.3) X10*3/uL Absolute Nucleated RBC 0.000 (0.0-0.012) X10*3/uL Nucleated RBC % (auto) 0.0 (0.0-0.2) /100WBC Sodium (135-145) mmol/L Potassium (3.3-5.1) mmol/L Chloride (96-108) mmol/L Carbon Dioxide (22-29) mmol/L Anion Gap (12-20) BUN (9-16) mg/dL Creatinine (0.5-1.4) mg/dL Estim Creat Clear Calc Estimated GFR Random Glucose (60-115) mg/dL Calcium (8.4-10.2) mg/dL Total Bilirubin (0.0-1.0) mg/dL AST (5-31) U/L ALT (0-31) U/L Alkaline Phosphatase (39-117) U/L Total Protein (6.5-8.0) g/dL Albumin (3.5-5.0) g/dL Urine Color YELLOW Urine Appearance CLOUDY Urine pH 7.0 (5.0-8.0) Ur Specific [place] 1.015 (1.005-1.025) Urine Protein NEG (NEG-TRACE) MG/DL Urine Glucose (UA) NEG (NEG) MG/DL Urine Ketones NEG (NEG) MG/DL Urine Blood NEG (NEG) Urine Nitrite NEG (NEG) Ur Leukocyte Esterase 2+ H (NEG) Urine RBC 0 (0) /HPF Urine WBC 0-2 (0-4) /HPF Ur Squamous Epith Cells 2+ /LPF Amorphous Sediment 3+ /LPF Urine Bacteria 2+ /LPF Urine Test POSITIVE H (NEGATIVE) COVID-19 (JOVITA) (Negative) COVID-19 Clin Com 10/26/20 10/26/20 Range/Units 02:17 02:42 WBC (4.8-10.8) X10*3/uL RBC (4.20-5.50) X10*6/uL Hgb (12.0-16.0) g/dl Hct (37-47) % MCV (80-98) fL MCH (27.0-33.0) pg MCHC (31.0-35.0) g/dl RDW (11.0-16.0) % Plt Count (160-400) X10*3/uL MPV (9.4-12.3) fL Immature Gran % (Auto) (0.0-0.4) % Neut % (Auto) (45-73) % Lymph % (Auto) (20-40) % [place] % (Auto) (2-11) % Eos % (Auto) (0-4) % Baso % (Auto) (0-2) % Lymph # (Auto) (1.2-4.9) X10*3/uL [place] # (Auto) (0.1-1.2) X10*3/uL Eos # (Auto) (0.0-0.4) X10*3/uL Baso # (Auto) (0.0-0.2) X10*3/uL Abs Immat Gran (auto) (0.00-0.03) X10*3/uL Absolute Neuts (auto) (2.0-8.3) X10*3/uL Absolute Nucleated RBC (0.0-0.012) X10*3/uL Nucleated RBC % (auto) (0.0-0.2) /100WBC Sodium 139 (135-145) mmol/L Potassium 3.9 (3.3-5.1) mmol/L Chloride 105 (96-108) mmol/L Carbon Dioxide 26 (22-29) mmol/L Anion Gap 12 (12-20) BUN 9 (9-16) mg/dL Creatinine 0.67 (0.5-1.4) mg/dL Estim Creat Clear Calc 147.0 Estimated GFR > 60 Random Glucose 94 (60-115) mg/dL Calcium 9.7 (8.4-10.2) mg/dL Total Bilirubin 0.4 (0.0-1.0) mg/dL AST 11 (5-31) U/L ALT 11 (0-31) U/L Alkaline Phosphatase 49 D (39-117) U/L Total Protein 6.8 (6.5-8.0) g/dL Albumin 3.8 (3.5-5.0) g/dL Urine Color Urine Appearance Urine pH (5.0-8.0) Ur Specific [place] (1.005-1.025) Urine Protein (NEG-TRACE) MG/DL Urine Glucose (UA) (NEG) MG/DL Urine Ketones (NEG) MG/DL Urine Blood (NEG) Urine Nitrite (NEG) Ur Leukocyte Esterase (NEG) Urine RBC (0) /HPF Urine WBC (0-4) /HPF Ur Squamous Epith Cells /LPF Amorphous Sediment /LPF Urine Bacteria /LPF Urine Test (NEGATIVE) COVID-19 (JOVITA) Negative (Negative) COVID-19 Clin Com See Note Discharge Plan Discharge Clinical Impression: UTI (urinary tract infection) during Patient Disposition: Home, Self-Care Instructions: Urinary Tract Infection in (ED), Loratadine (By mouth), Fluticasone (Into the nose) Additional Instructions: 1. Continue to stay well hydrated especially with water. 2. Please follow-up with your legal technician by calling the office today and setting up an appointment for re-evaluation. 3. Recommend starting Claritin (loratadine) as well as Flonase for seasonal allergy symptoms. Return to the ER for any acute worsening of her symptoms. Prescriptions: No Action trazodone 50 mg tablet 50 mg PO BEDTIME PRN (Reason: sleep/anxiety) Qty: 30 RF: 0 escitalopram oxalate 10 mg tablet 10 mg PO DAILY Qty: 30 RF: 5 hydroxyzine HCl 25 mg tablet 25 mg PO TID PRN (Reason: anxiety) Qty: 30 RF: 0 ergocalciferol (vitamin D2) 1,250 mcg (50,000 unit) capsule 1,250 mcg PO QWEEK RF: 0 Vitamin Plus Low Iron 27 mg iron- 1 mg tablet 1 tab PO DAILY Qty: 30 RF: 11 Referrals: Fartun Grady MD [Primary Care Provider] - 2 days
[2020-10-26 02:21] LABS: MANUAL DIFF FLAG NO
[2020-10-26] MEDS: 0.9 % Sodium Chloride 1,000 ML 999 ML IV (02:23)
[2020-10-26] MEDS: ondansetron HCL 4 MG/2 ML VIAL IVPUSH (02:23)
[2020-10-26 02:31] LABS: Basophils Percent Auto 0.3 % (0-2); Eosinophils Absolute Auto 0.4 X10*3/uL (0.0-0.4); Eosinophils Percent Auto 3.8 % (0-4); Hematocrit 35.5 % (37-47); Hemoglobin 11.7 g/dl (12.0-16.0); Imm Gran Abs Auto 0.05 X10*3/uL (0.00-0.03); Imm Gran Pct Auto 0.5 % (0.0-0.4); Lymphocytes Absolute Auto 2.1 X10*3/uL (1.2-4.9); Lymphocytes Percent Auto 21.6 % (20-40); Mean Corpuscular Hemoglobin 29.2 pg (27.0-33.0); Mean Corpuscular Volume 88.5 fL (80-98); Mean Platelet Volume 10.2 fL (9.4-12.3); Monocytes Absolute Auto 0.9 X10*3/uL (0.1-1.2); Monocytes Percent Auto 8.9 % (2-11); Neutrophils Absolute Auto 6.2 X10*3/uL (2.0-8.3); Neutrophils Percent Auto 64.9 % (45-73); Platelet Count 221 X10*3/uL (160-400); Red Blood Count 4.01 X10*6/uL (4.20-5.50); White Blood Count 9.6 X10*3/uL (4.8-10.8)
[2020-10-26] MEDS: cefTRIAXone sodium 1 GM in 0.9 % Sodium Chloride 50 ML IV (02:48)
[2020-10-26 02:57] LABS: Alanine Aminotransferase 11 U/L (0-31); Albumin Level 3.8 g/dL (3.5-5.0); Alkaline Phosphatase 49 U/L (39-117); Anion Gap 12 (12-20); Aspartate Amino Transferase 11 U/L (5-31); Bilirubin Total 0.4 mg/dL (0.0-1.0); Blood Urea Nitrogen 9 mg/dL (9-16); Calcium 9.7 mg/dL (8.4-10.2); Carbon Dioxide 26 mmol/L (22-29); Chloride 105 mmol/L (96-108); Estimated Glomerular Filt Rate > 60; Glucose Random 94 mg/dL (60-115); Potassium 3.9 mmol/L (3.3-5.1); Sodium 139 mmol/L (135-145); Total Protein 6.8 g/dL (6.5-8.0)
[2020-10-26 03:03] LABS: COVID-19 Test Negative (Negative); IDNOW Serial# 9DD0AD1C
[2020-10-26 04:00] VITALS: BP 120/68; PULSE 70; RESP 18; O2SAT 98
== END 2020-10-26 04:35 | disposition home or self-care (01) ==
PROVIDERS: Emergency Provider Student in an Organized Health Care Education/Training Program; PCP Internal Medicine
DX: O23.41 Unspecified infection of urinary tract in pregnancy, first trimester (principal); Z3A.12 12 weeks gestation of pregnancy; Z20.822 Contact with and (suspected) exposure to COVID-19
CPT/HCPCS: 36415; 80053; 81001; 81003; 81025; 85025; 87086; 87635; 96361; 96365; 96374; 99284; J0696; J2405

== ENCOUNTER → 2020-11-12 13:47 | Outpatient (BNVA) | payer OTHER, SELFPAY | PROVIDERS: PCP Internal Medicine; Visit Provider Advanced Practice Midwife | DX: O99.342 Other mental disorders complicating pregnancy, second trimester (principal); F41.9 Anxiety disorder, unspecified; Z3A.14 14 weeks gestation of pregnancy; Z79.899 Other long term (current) drug therapy | CPT/HCPCS: 99212 ==

== ENCOUNTER 2020-11-16 10:55 | Outpatient (REF) | payer OTHER, SELFPAY ==
[2020-11-16 12:03] LABS: Hematocrit 36.9 % (37-47); Hemoglobin 11.9 g/dl (12.0-16.0); Mean Corpuscular HGB Conc 32.2 g/dl (31.0-35.0); Mean Corpuscular Hemoglobin 28.5 pg (27.0-33.0); Mean Corpuscular Volume 88.5 fL (80-98); Mean Platelet Volume 10.3 fL (9.4-12.3); Platelet Count 231 X10*3/uL (160-400); Red Blood Count 4.17 X10*6/uL (4.20-5.50); Red Cell Distribution Width 12.9 % (11.0-16.0)
[2020-11-16 12:47] LABS: Amphetamine Screen Urine Not Detected (Not Detect); Barbiturates, Urine Not Detected (Not Detect); Benzodiazepines Screen Urine Not Detected (Not Detect); Cannabinoid Screen Urine Not Detected (Not Detect); Cocaine Screen Urine Not Detected (Not Detect); Opiate Screen Urine Not Detected (Not Detect); Phencyclidine Screen Urine Not Detected (Not Detect)
[2020-11-17 07:36] LABS: Syphilis Screen Nonreactive (Nonreactive)
[2020-11-17 08:22] LABS: Rubella IgG Antibody 2.84 Index
[2020-11-17 08:26] LABS: Hepatitis B Surface Antigen Negative (Negative)
[2020-11-17 08:43] LABS: ~HepC Num1 0.13 S/CO (0.00-0.79); ~Hepatitis C Antibody Nonreactive (Nonreactive)
[2020-11-17 09:08] LABS: BV Int Neg Control Negative (Negative); BV Int Pos Control Positive (Positive)
[2020-11-17 09:27] LABS: CT PCR NOT DETECTED (Not Detect.); NG PCR NOT DETECTED (Not Detect.)
[2020-11-18 09:32] LABS: Hematocrit 35.6 % (35.0-45.0); Hemoglobin 11.8 g/dL (11.7-15.5); MCH 28.4 pg (27.0-33.0); MCV 85.6 fL (80.0-100.0); RBC 4.16 Million/uL (3.80-5.10); RDW 12.3 % (11.0-15.0)
[2020-11-18 11:47] LABS: HIV AB/AG Nonreactive (Nonreactive); HIV Num 1 0.07 S/CO (0.00-0.99)
== END 2020-11-16 10:56 | disposition home or self-care (01) ==
LOC: HO.LAB 10:55
PROVIDERS: PCP Internal Medicine; Visit Provider Advanced Practice Midwife
DX: Z36.3 Encounter for antenatal screening for malformations (principal); O99.342 Other mental disorders complicating pregnancy, second trimester; F32.9 Major depressive disorder, single episode, unspecified; Z3A.15 15 weeks gestation of pregnancy
CPT/HCPCS: 80307; 83020; 85014; 85018; 85027; 85041; 86762; 86780; 86787; 86803; 86850; 86900; 86901; 87086; 87340; 87389; 87480; 87491; 87510; 87591; 87660; 88142; 99212

== ENCOUNTER 2020-12-10 13:48 | Outpatient (REF) | payer OTHER, SELFPAY ==
--- NOTE | ~2020-12-10 | US_ITS ---
EXAMINATION: US OBSTETRICAL CLINICAL INFORMATION: 25-year-old at 18.4 weeks of gestation High BMI PCL as Screening for anomaly COMPARISON: 10/14/2020 TECHNIQUE: Real-time transabdominal ultrasound was performed using C1-5 megahertz transducer. FINDINGS: A single, active, fetus is seen in breech presentation. The placenta is anterior without previa, and the amniotic fluid volume is wnl. MEASUREMENTS: 1. Biparietal Diameter: 4.3 cm; 19.1 wks 2. Occipital Frontal Diameter: 5.7 cm 3. Head Circumference: 16.3 cm; 19.1 wks 4. Abdominal Circumference: 13.5 cm; 19.0 wks 5. Femur Length: 2.8 cm; 18.4 wks 6. Humerus Length: 2.8 cm; 19.0 wks 7. Tibia Length: 2.4 cm; 18.5 wks 8. Lateral ventricle: 0.64 cm 9. Cerebellum: 1.93 cm; 19.6 wks 10. Cisterna Magna: 0.4 cm 11. Nuchal Fold: 4.4 mm 12. Heart Rate: 146 beats per minute Rt ovary: Within normal limits 3.8 x 3.6 cm Lt ovary: Within normal limits: 2.9 x 1.7 cm Cervical length 5.0 cm on T/A. GESTATIONAL AGE: 1. Established GA: 18.4 wks 2. GA from [facility]: 19.0 wks ESTIMATED DATE OF DELIVERY: 1. Established SAMSON: 05/09/2021 2. SAMSON from [facility]: 05/06/2021 ANATOMY: cardiac anatomy was suboptimal. The visualization of the left and right ventricular outflow tracts and 3 vessel trachea view was limited. The visualized anatomy includes but not limited to: 1. Cranium: Normal 2. Intracranial anatomy: cavum septum pellucidi, lateral ventricles, choroid plexus, cerebellum, posterior fossa, third and fourth ventricles. 3. face: orbits, lip/palate, profile, nasal bone 4. Heart: Suboptimal views of the LVOT, RVOT and 3 vessel trachea view. Rest of the cardiac anatomy was within normal limits. 5. Diaphragm: Normal 6. Abdominal wall: Normal 7. Cord Insertion: Normal 8. Spine: Cervical, thoracic, lumbar, sacral. 9. Stomach: Normal size and shape 10. Right Kidney: Normal 11. Left Kidney: Normal 12. 3 vessel cord: Normal 13. Upper extremity: Open hands, fifth digit. 14. Lower extremity: Tibia, fibula, bilateral feet. 15. Bladder: Normal 16. Genitalia: Male, patient not aware US/US OB /maternal detail IMPRESSION: 1. Single, living, intrauterine with appropriate biometry. 2. Limited survey due to position. No abnormalities were seen in visualized anatomy. DISCUSSION: I reviewed today's ultrasound findings. We discussed the limitations of ultrasound in diagnosing aneuploidy and other congenital abnormalities. I reviewed the differences between screening test and diagnostic test. Amniocentesis was discussed and declined. She was informed that the baseline incidence of congenital abnormalities is approximately 3-5%. Not all these conditions are diagnosable in utero. RECOMMENDATIONS: Follow-up in 3 weeks for growth and cardiac anatomy (scheduled). Thank you for allowing me to participate in her care. Total time 20 minutes. The time spent was devoted to counseling the patient about the disease and diagnosis, coordinating care including reviewing her records, pertinent lab data and studies, as well as discussing diagnostic evaluation and workup, plan therapeutic interventions and future disposition of care. This includes any additional research needed to obtain further information in formulating the plan of care of this patient. This note was generated with a voice recognition program. Please excuse any errors which may have been overlooked during my review of this note. Sometimes these errors may affect the content or meaning of a given sentence.
== END 2020-12-10 13:49 | disposition home or self-care (01) ==
LOC: HO.US 13:48
PROVIDERS: Visit Provider Advanced Practice Midwife
DX: Z36.3 Encounter for antenatal screening for malformations (principal); O99.342 Other mental disorders complicating pregnancy, second trimester; F32.9 Major depressive disorder, single episode, unspecified
CPT/HCPCS: 76811

== ENCOUNTER 2020-12-31 12:02 | Outpatient (REF) | payer OTHER, SELFPAY ==
--- NOTE | ~2020-12-31 | US_ITS ---
EXAMINATION: OBSTETRICAL ULTRASOUND, Follow up HISTORY: 25-year-old at the 21.4 weeks of gestation Incomplete the survey COMPARISON: 12/10/2020 TECHNIQUE: Real time transabdominal imaging with color and M-mode Doppler. PRESENTATION: Transverse PLACENTA LOCATION: Anterior without previa AMNIOTIC FLUID: Within normal limits MEASUREMENTS: 1. Biparietal Diameter: 5.2 cm; 21.6 wks 2. Head Circumference: 19.86 cm; 22.1 wks 3. Abdominal Circumference: 16.37 cm; 21.5 wks 4. Femur Length: 3.58 cm; 21.3 wks 5. Heart Rate: 132 beats per minute WEIGHT: Estimated weight is 436 grams (0 lbs 15 oz) -- 45 %. Normal views of lateral cerebral ventricle, profile, nose/lips, 4ch view, LVOT, RVOT, three-vessel view, 3 vessel trachea view, pericaval, aortic and ductal arches, gender. GESTATIONAL AGE: 1. Established GA: 21.4 wks 2. GA from [facility]: 21.6 wks ESTIMATED DATE OF DELIVERY: 1. Established SAMSON: 05/09/2021 2. [facility] from [facility]: 05/07/2021 US/US OB follow up IMPRESSION: 1. A single fetus with appropriate interval growth. 2. Previously limited views of the anatomy were seen as listed above. No abnormalities were noted in visualized anatomy. 3. This completes the survey. I reviewed the limitations of ultrasound in diagnosing aneuploidy and other congenital abnormalities. Amniocentesis was again reviewed and she declined. She was informed that the baseline instance of congenital abnormalities and defects in the general population is approximately 3-5%. Not all these conditions are diagnosable in utero. RECOMMENDATIONS: 1. f/u PRN Thank you very much for this referral. This note was generated with a voice recognition program. Please excuse any errors which may have been overlooked during my review of this note. Sometimes these errors may affect the content or meaning of a given sentence.
== END 2020-12-31 12:03 | disposition home or self-care (01) ==
LOC: HO.US 12:02
PROVIDERS: PCP Internal Medicine; Visit Provider Advanced Practice Midwife
DX: Z36.3 Encounter for antenatal screening for malformations (principal); Z3A.21 21 weeks gestation of pregnancy
CPT/HCPCS: 76816

== ENCOUNTER → 2021-02-11 13:17 | Outpatient (BNVA) | payer OTHER, SELFPAY | PROVIDERS: Visit Provider Advanced Practice Midwife | DX: Z34.82 Encounter for supervision of other normal pregnancy, second trimester (principal); Z3A.27 27 weeks gestation of pregnancy | CPT/HCPCS: 99212 ==

== ENCOUNTER → 2021-02-24 14:35 | Outpatient (BNVA) | payer OTHER, SELFPAY | PROVIDERS: Visit Provider Advanced Practice Midwife | DX: Z36.3 Encounter for antenatal screening for malformations (principal); O99.213 Obesity complicating pregnancy, third trimester; E66.9 Obesity, unspecified; O26.893 Other specified pregnancy related conditions, third trimester; L30.9 Dermatitis, unspecified; O99.343 Other mental disorders complicating pregnancy, third trimester; F41.8 Other specified anxiety disorders; Z3A.29 29 weeks gestation of pregnancy; Z79.899 Other long term (current) drug therapy; Z88.1 Allergy status to other antibiotic agents | CPT/HCPCS: 81003; 99212 ==

== ENCOUNTER 2021-03-10 11:16 | Outpatient (REF) | payer OTHER, SELFPAY ==
[2021-03-10 13:41] LABS: Hematocrit 35.8 % (37-47); Hemoglobin 11.9 g/dl (12.0-16.0); Mean Corpuscular HGB Conc 33.2 g/dl (31.0-35.0); Mean Corpuscular Hemoglobin 28.3 pg (27.0-33.0); Mean Corpuscular Volume 85.2 fL (80-98); Mean Platelet Volume 11.2 fL (9.4-12.3); Platelet Count 198 X10*3/uL (160-400); Red Cell Distribution Width 13.3 % (11.0-16.0); White Blood Count 8.6 X10*3/uL (4.8-10.8)
[2021-03-10 13:49] LABS: Glucose 1 Hour PP 50gm Dose 112 mg/dL (60-140)
[2021-03-11 04:16] LABS: Syphilis Screen Nonreactive (Nonreactive)
== END 2021-03-10 11:17 | disposition home or self-care (01) ==
LOC: HO.LAB 11:16
PROVIDERS: PCP Internal Medicine; Visit Provider Advanced Practice Midwife
DX: Z34.90 Encounter for supervision of normal pregnancy, unspecified, unspecified trimester (principal)
CPT/HCPCS: 36415; 85027; 86780

== ENCOUNTER → 2021-03-17 13:10 | Outpatient (BNVA) | payer OTHER, SELFPAY | PROVIDERS: PCP Internal Medicine; Visit Provider Advanced Practice Midwife | DX: O99.213 Obesity complicating pregnancy, third trimester (principal); E66.9 Obesity, unspecified; Z3A.32 32 weeks gestation of pregnancy | CPT/HCPCS: 99212 ==

== ENCOUNTER 2021-04-11 12:58 | Outpatient (REF) | payer OTHER, SELFPAY ==
[2021-04-11 17:10] LABS: CT PCR NOT DETECTED (Not Detect.); NG PCR NOT DETECTED (Not Detect.)
== END 2021-04-11 12:59 | disposition home or self-care (01) ==
LOC: HO.LAB 12:58
PROVIDERS: PCP Internal Medicine; Visit Provider Advanced Practice Midwife
DX: O99.213 Obesity complicating pregnancy, third trimester (principal); E66.9 Obesity, unspecified; Z3A.36 36 weeks gestation of pregnancy
CPT/HCPCS: 81003; 87081; 87147; 87491; 87591; 90471; 90715; 99212

== ENCOUNTER → 2021-04-12 13:52 | Outpatient (BNVA) | payer OTHER, SELFPAY | PROVIDERS: PCP Internal Medicine; Visit Provider Advanced Practice Midwife | DX: O99.213 Obesity complicating pregnancy, third trimester (principal); Z3A.36 36 weeks gestation of pregnancy | CPT/HCPCS: 59025; 99212 ==

== ENCOUNTER 2021-04-15 10:56 | Outpatient (REF) | payer OTHER, SELFPAY ==
--- NOTE | ~2021-04-15 | US_ITS ---
EXAMINATION: US OBSTETRICAL FOLLOW UP WITH BIOPHYSICAL PROFILE CLINICAL INFORMATION: Obesity. Check size and growth. COMPARISON: Previous exam most recent December 2020 TECHNIQUE: Real time transabdominal imaging with color and M-mode Doppler. POSITION: Cephalic PLACENTA: Anterior. Grade 2. AMNIOTIC FLUID INDEX: 12.6 cm MEASUREMENTS: The initial dating ultrasound dated provided an estimated date of delivery of 05/09/2021 . This would project today to a of 36 weeks 4 days. biometric measurements are as follows: Biparietal Diameter: 8.8 cm (35 weeks 4 days) Occipital Frontal Diameter: 10.9 cm (35 weeks 0 days) Head Circumference: 31 cm (35 weeks 1 day) Abdominal Circumference: 32.6 cm (36 weeks 4 days) Femur Length: 7 cm (36 weeks 3 days) The standard deviation for the above measurements is +/- 3 weeks. ESTIMATED WEIGHT: The EFW is 2871 grams +/- 419 grams (6 lbs 15 oz +/- 15 oz). This is at the 43rd percentile. BIOPHYSICAL PROFILE: Biophysical profile is performed over 30 minutes with assessment of breathing, gross body movement, tone, and qualitative amniotic fluid volume. Each matrix is scored 0 or 2, depending if the metric is present. Maximum total score possible is 8. Motion: 2 Tone: 2 Breathin Amniotic Fluid: 2 Total score: HR: 139 bpm US/US OB follow up IMPRESSION: 1. Single intrauterine gestation in cephalic position with anterior placenta. 2. EFW: 6 lbs. 15 oz. 3. SKYLER: 12.6 cm. 4. BPP score: 8 (scale 0-8).
== END 2021-04-15 10:57 | disposition home or self-care (01) ==
LOC: HO.US 10:56
PROVIDERS: PCP Internal Medicine; Visit Provider Advanced Practice Midwife
DX: E66.9 Obesity, unspecified (principal)
CPT/HCPCS: 76816

== ENCOUNTER → 2021-04-19 10:47 | Outpatient (BNVA) | payer OTHER, SELFPAY | PROVIDERS: PCP Internal Medicine; Visit Provider Obstetrics & Gynecology | DX: O99.213 Obesity complicating pregnancy, third trimester (principal); E66.9 Obesity, unspecified; Z68.37 Body mass index [BMI] 37.0-37.9, adult | CPT/HCPCS: 59025; 99212 ==

== ENCOUNTER 2021-04-22 09:43 | Outpatient (REF) | payer OTHER, SELFPAY ==
--- NOTE | ~2021-04-22 | US_ITS ---
EXAMINATION: OBSTETRICAL ULTRASOUND, Follow up HISTORY: 25-year-old at the 37.4 weeks of gestation High BMI COMPARISON: 04/15/2021 TECHNIQUE: Real time transabdominal imaging with color and M-mode Doppler. PRESENTATION: Vertex PLACENTA LOCATION: Anterior without previa AMNIOTIC FLUID: SKYLER 14.8 centimeters BIOPHYSICAL PROFILE: Biophysical profile is performed over 30 minutes with assessment of breathing, gross body movement, tone, and qualitative amniotic fluid volume. Motion: 2 Tone: 2 Breathin Amniotic Fluid: 2 Total score: 8/8 GESTATIONAL AGE: 1. Established GA: 37.4 wks 2. GA from AUA: N/A wks ESTIMATED DATE OF DELIVERY: 1. Established SAMSON: 05/09/2021 2. SAMSON from AUA: N/A US/US OB biophysical profile IMPRESSION: A single active fetus is in vertex presentation BPP is reassuring with normal amniotic fluid index. Thank you very much for this referral. This note was generated with a voice recognition program. Please excuse any errors which may have been overlooked during my review of this note. Sometimes these errors may affect the content or meaning of a given sentence.
== END 2021-04-22 09:44 | disposition home or self-care (01) ==
LOC: HO.US 09:43
PROVIDERS: Visit Provider Advanced Practice Midwife
DX: O99.213 Obesity complicating pregnancy, third trimester (principal); E66.9 Obesity, unspecified; Z3A.37 37 weeks gestation of pregnancy
CPT/HCPCS: 76819

== ENCOUNTER → 2021-04-26 08:49 | Outpatient (BNVA) | payer OTHER, SELFPAY | PROVIDERS: PCP Internal Medicine; Visit Provider Obstetrics & Gynecology | DX: O99.213 Obesity complicating pregnancy, third trimester (principal); E66.9 Obesity, unspecified; Z68.36 Body mass index [BMI] 36.0-36.9, adult; Z3A.33 33 weeks gestation of pregnancy | CPT/HCPCS: 59025; 99212 ==

== ENCOUNTER 2021-04-29 10:57 | Outpatient (REF) | payer OTHER, SELFPAY ==
--- NOTE | ~2021-04-29 | US_ITS ---
EXAMINATION: US OBSTETRICAL (BIOPHYSICAL PROFILE) CLINICAL INFORMATION: 25-year-old at 38.4 weeks of gestation High BMI COMPARISON: 04/22/2021 TECHNIQUE: Biophysical profile is performed over 30 minutes with assessment of breathing, gross body movement, tone, and qualitative amniotic fluid volume. FINDINGS: POSITION: Vertex PLACENTA: Anterior without previa AMNIOTIC FLUID INDEX: 11.8 cm CARDIAC ACTIVITY: 142 beats per minute BIOPHYSICAL PROFILE: Motion: 2 Tone: 2 Breathin Amniotic Fluid: 2 The total biophysical score is 8/8 US/US OB biophysical profile IMPRESSION: 1. Single intrauterine gestation in vertex position. 2. Reassuring BPP and SKYLER Thank you for allowing me to participate in her care. This note was generated with a voice recognition program. Please excuse any errors which may have been overlooked during my review of this note. Sometimes these errors may affect the content or meaning of a given sentence.
== END 2021-04-29 10:58 | disposition home or self-care (01) ==
LOC: HO.US 10:57
PROVIDERS: PCP Internal Medicine; Visit Provider Obstetrics & Gynecology
DX: O99.213 Obesity complicating pregnancy, third trimester (principal); E66.9 Obesity, unspecified; Z3A.38 38 weeks gestation of pregnancy
CPT/HCPCS: 76819

== ENCOUNTER 2021-05-04 10:00 | Outpatient (REF) | payer OTHER, SELFPAY | END 2021-05-04 10:01 | disposition home or self-care (01) | LOC: HO.HMGCLDS 10:00 | PROVIDERS: PCP Internal Medicine; Visit Provider Internal Medicine | DX: Z20.822 Contact with and (suspected) exposure to COVID-19 (principal) | CPT/HCPCS: C9803; U0003; U0005 ==

== ENCOUNTER 2021-07-16 21:39 | Emergency (ER) | payer OTHER, SELFPAY ==
[2021-07-16 21:41] VITALS: BP 133/92; PULSE 83; RESP 17; TEMP 36.4; O2SAT 97; BMI 32.0
[2021-07-16 22:03] LABS: MANUAL DIFF FLAG NO
[2021-07-16 22:07] LABS: Basophils Percent Auto 0.3 % (0-2); Eosinophils Percent Auto 0.6 % (0-4); Hematocrit 36.6 % (37.0-47.0); Hemoglobin 11.4 g/dl (12.0-16.0); Imm Gran Abs Auto 0.01 X10*3/uL (0.00-0.03); Imm Gran Pct Auto 0.3 % (0.0-0.4); Lymphocytes Absolute Auto 1.4 X10*3/uL (1.2-4.9); Lymphocytes Percent Auto 45.2 % (20-40); Mean Corpuscular HGB Conc 31.1 g/dl (31.0-35.0); Mean Corpuscular Hemoglobin 25.4 pg (27.0-33.0); Mean Corpuscular Volume 81.7 fL (80.0-98.0); Mean Platelet Volume 10.4 fL (9.4-12.3); Monocytes Absolute Auto 0.5 X10*3/uL (0.1-1.2); Monocytes Percent Auto 14.5 % (2-11); Neutrophils Absolute Auto 1.2 x10*3/uL (2.0-8.3); Neutrophils Percent Auto 39.1 % (45-73); Platelet Count 252 X10*3/uL (160-400); Red Blood Count 4.48 X10*6/uL (4.20-5.50); Red Cell Distribution Width 15.6 % (11.0-16.0); White Blood Count 3.1 X10*3/uL (4.8-10.8)
[2021-07-16 22:22] LABS: Appearance Urine CLEAR; Color Urine YELLOW; Glucose Urine UA 100 MG/DL (NEG); Leukocyte Esterase Urine 2+ (NEG); Nitrite Urine NEG (NEG); Specific Gravity - Urine <= 1.005 (1.005-1.025); UACC Culture Trigger YES; Urine Blood NEG (NEG); Urine Ketones NEG (NEG); Urine Protein NEG (NEG-TRACE)
[2021-07-16 22:24] LABS: Alanine Aminotransferase 30 U/L (0-31); Albumin Level 4.3 g/dL (3.5-5.0); Alkaline Phosphatase 96 U/L (39-117); Anion Gap 14 (12-20); Aspartate Amino Transferase 21 U/L (5-31); Bilirubin Total 0.3 mg/dL (0.0-1.0); Blood Urea Nitrogen 10 mg/dL (9-16); Calcium 10.1 mg/dL (8.4-10.2); Carbon Dioxide 22 mmol/L (22-29); Chloride 106 mmol/L (96-108); Creatinine Clr Calc Pharmacy 123.3; Estimated Glomerular Filt Rate > 60; Glucose Random 92 mg/dL (60-115); Potassium 3.5 mmol/L (3.3-5.1); Sodium 138 mmol/L (135-145); Total Protein 7.6 g/dL (6.5-8.0)
[2021-07-16 22:27] LABS: COVID-19 Test Negative (Negative)
[2021-07-16 22:33] LABS: UPreg QC Valid YES; Urine Pregnancy NEGATIVE (NEGATIVE)
--- NOTE | 2021-07-16 22:34 | ED.GENADULT ---
HPI - General Adult General Chief complaint: General Medical Stated complaint: nausea, dizziness, chills Time Seen by Provider: 07/16/21 22:34 Source: patient Mode of arrival: ambulatory Limitations: no limitations History of Present Illness HPI narrative: Patient 05/10 comes here for nausea dizziness since yesterday denies any urinary complaints no vaginal discharge on arrival patient's blood pressure was 133/92. Patient has high blood pressure on 05/24 at PCP office but came down after resting. No headache no chest pain no abdominal pain Related Data Previous Rx's Medication Instructions Recorded escitalopram oxalate 10 mg tablet 10 mg PO DAILY #30 tab 06/23/20 vitamin with calcium 1 tab PO DAILY #30 tab 10/07/20 no.72-iron 27 mg-folic acid 1 mg tablet ( Vitamins Plus Low Iron) aspirin 81 mg tablet,delayed 162 mg PO DAILY #120 tab 02/11/21 release (Adult Aspirin Regimen) hydrocortisone 1 % topical cream 1 appl TOPICAL BID-QID PRN #28.4 g 02/24/21 (Anti-Itch (hydrocortisone)) blood pressure monitor #1 ea 05/25/21 nitrofurantoin 100 mg PO BID 7 Days #14 cap 07/16/21 monohydrate/macrocrystals 100 mg capsule (Macrobid) ondansetron 4 mg disintegrating 4 mg PO Q6-8H PRN #7 tab 07/16/21 tablet Allergies Allergy/AdvReac Type Severity Reaction Status Date / Time metronidazole [METRONIDAZOLE] Allergy Mild HIVES Verified 07/16/21 21:41 Review of Systems Review of Systems: Yes all other systems are reviewed and are negative PMFSH Past Medical History Medical History Anxiety Depression Dermatitis Eye strain, bilateral Generalized anxiety disorder Insomnia Intermittent asthma without complication Irregular menstrual bleeding Lesion of skin of scalp Paresthesia of bilateral legs Paresthesias Recurrent headache Surgical History History of appendectomy No pertinent past surgical history Family History Family History Father Asthma Hx of diabetes mellitus Mother Asthma Hypothyroidism Arthritis Brother Depression Social History Social History Household Members: Family and Children Alcohol intake: never Patient Tobacco Use Status: Never used Tobacco e-Cigarette/Vaping Use: Never Used Advance Directives: No Advance Directives Information Provided: Yes Sexual orientation: Straight/Heterosexual Gender identity: Female Physical Exam ED Vital Signs: Vital Signs - 24 hr 07/16/21 21:41 07/16/21 23:04 Temperature 97.5 F 99.2 F Pulse Rate 83 78 Respiratory Rate 17 18 Blood Pressure 133/92 H 113/77 Pulse Oximetry 97 98 BMI result Body Mass Index 32.0 Appearance: Alert. Oriented X3. No acute distress. Eyes: No pallor or icterus ENT: Pharynx normal. Oral Mucosa moist Neck: Normal inspection. Neck supple. CVS: Normal heart rate and rhythm. Pulses normal. Respiratory: No respiratory distress. Equal air entry bilateral, no wheezing/rales/rhonchi Abdomen: Soft and nontender. Bowel sounds are present, no mass palpable, no CVA tenderness Skin: Skin warm and dry. Normal skin color. Normal skin turgor. Extremities: No lower extremity edema. No calf tenderness Neuro: Oriented X 3. Medical Decision Making MDM Narrative Medical decision making narrative: Patient with with nausea and dizziness workup showed UTI with WBC clumps. On arrival patient's blood pressure was 134/92 repeat blood pressure was 113/77 there is no proteinuria in the urine no other labs suggestive of/ symptoms of eclampsia. Will discharge patient home on Macrobid and Zofran Lab Data Lab results reviewed: Yes I reviewed the patient's lab results. Result diagrams: 07/16/21 21:57 07/16/21 21:57 Labs: Lab Results 07/16/21 07/16/21 07/16/21 Range/Units 21:57 21:57 21:57 WBC 3.1 L (4.8-10.8) X10*3/uL RBC 4.48 (4.20-5.50) X10*6/uL Hgb 11.4 L (12.0-16.0) g/dl Hct 36.6 L (37.0-47.0) % MCV 81.7 (80.0-98.0) fL MCH 25.4 L (27.0-33.0) pg MCHC 31.1 (31.0-35.0) g/dl RDW 15.6 (11.0-16.0) % Plt Count 252 (160-400) X10*3/uL MPV 10.4 (9.4-12.3) fL Immature Gran % (Auto) 0.3 (0.0-0.4) % Neut % (Auto) 39.1 L (45-73) % Lymph % (Auto) 45.2 H (20-40) % [place] % (Auto) 14.5 H (2-11) % Eos % (Auto) 0.6 (0-4) % Baso % (Auto) 0.3 (0-2) % Lymph # (Auto) 1.4 (1.2-4.9) X10*3/uL [place] # (Auto) 0.5 (0.1-1.2) X10*3/uL Eos # (Auto) 0.0 (0.0-0.4) X10*3/uL Baso # (Auto) 0.0 (0.0-0.2) X10*3/uL Abs Immat Gran (auto) 0.01 (0.00-0.03) X10*3/uL Absolute Neuts (auto) 1.2 L (2.0-8.3) x10*3/uL Absolute Nucleated RBC 0.000 (0.0-0.012) X10*3/uL Nucleated RBC % (auto) 0.0 (0.0-0.2) /100WBC Sodium 138 (135-145) mmol/L Potassium 3.5 (3.3-5.1) mmol/L Chloride 106 (96-108) mmol/L Carbon Dioxide 22 (22-29) mmol/L Anion Gap 14 (12-20) BUN 10 (9-16) mg/dL Creatinine 0.76 (0.5-1.4) mg/dL Estim Creat Clear Calc 123.3 Estimated GFR > 60 Random Glucose 92 (60-115) mg/dL Calcium 10.1 (8.4-10.2) mg/dL Total Bilirubin 0.3 (0.0-1.0) mg/dL AST 21 D (5-31) U/L ALT 30 (0-31) U/L Alkaline Phosphatase 96 D (39-117) U/L Total Protein 7.6 (6.5-8.0) g/dL Albumin 4.3 (3.5-5.0) g/dL Urine Color Urine Appearance Urine pH (5.0-8.0) Ur Specific [place] (1.005-1.025) Urine Protein (NEG-TRACE) MG/DL Urine Glucose (UA) (NEG) MG/DL Urine Ketones (NEG) MG/DL Urine Blood (NEG) Urine Nitrite (NEG) Ur Leukocyte Esterase (NEG) Urine RBC (0) /HPF Urine WBC (0-4) /HPF Urine WBC Clumps Ur Squamous Epith Cells /LPF Urine Bacteria /LPF Urine Test (NEGATIVE) COVID-19 (JOVITA) Negative (Negative) COVID-19 Clin Com See Note 07/16/21 07/16/21 Range/Units 21:57 21:57 WBC (4.8-10.8) X10*3/uL RBC (4.20-5.50) X10*6/uL Hgb (12.0-16.0) g/dl Hct (37.0-47.0) % MCV (80.0-98.0) fL MCH (27.0-33.0) pg MCHC (31.0-35.0) g/dl RDW (11.0-16.0) % Plt Count (160-400) X10*3/uL MPV (9.4-12.3) fL Immature Gran % (Auto) (0.0-0.4) % Neut % (Auto) (45-73) % Lymph % (Auto) (20-40) % [place] % (Auto) (2-11) % Eos % (Auto) (0-4) % Baso % (Auto) (0-2) % Lymph # (Auto) (1.2-4.9) X10*3/uL [place] # (Auto) (0.1-1.2) X10*3/uL Eos # (Auto) (0.0-0.4) X10*3/uL Baso # (Auto) (0.0-0.2) X10*3/uL Abs Immat Gran (auto) (0.00-0.03) X10*3/uL Absolute Neuts (auto) (2.0-8.3) x10*3/uL Absolute Nucleated RBC (0.0-0.012) X10*3/uL Nucleated RBC % (auto) (0.0-0.2) /100WBC Sodium (135-145) mmol/L Potassium (3.3-5.1) mmol/L Chloride (96-108) mmol/L Carbon Dioxide (22-29) mmol/L Anion Gap (12-20) BUN (9-16) mg/dL Creatinine (0.5-1.4) mg/dL Estim Creat Clear Calc Estimated GFR Random Glucose (60-115) mg/dL Calcium (8.4-10.2) mg/dL Total Bilirubin (0.0-1.0) mg/dL AST (5-31) U/L ALT (0-31) U/L Alkaline Phosphatase (39-117) U/L Total Protein (6.5-8.0) g/dL Albumin (3.5-5.0) g/dL Urine Color YELLOW Urine Appearance CLEAR Urine pH 6.0 (5.0-8.0) Ur Specific [place] <= 1.005 (1.005-1.025) Urine Protein NEG (NEG-TRACE) MG/DL Urine Glucose (UA) 100 H (NEG) MG/DL Urine Ketones NEG (NEG) MG/DL Urine Blood NEG (NEG) Urine Nitrite NEG (NEG) Ur Leukocyte Esterase 2+ H (NEG) Urine RBC 0-2 (0) /HPF Urine WBC 5-9 H (0-4) /HPF Urine WBC Clumps NOTED Ur Squamous Epith Cells 2+ /LPF Urine Bacteria TRACE /LPF Urine Test NEGATIVE (NEGATIVE) COVID-19 (JOVITA) (Negative) COVID-19 Clin Com Discharge Plan Discharge Clinical Impression: UTI (urinary tract infection) Patient Disposition: Home, Self-Care Instructions: Urinary Tract Infection in Women (ED) Additional Instructions: Your symptoms likely from urinary tract infection take antibiotics as advised Drink plenty of fluids Report to the ER if increased vomiting high fever not feeling good Prescriptions: New nitrofurantoin monohyd/m-cryst [Macrobid] 100 mg capsule 100 mg PO BID 7 Days Qty: 14 0RF Rx Instructions: must administer with a meal/food ondansetron 4 mg tablet,disintegrating 4 mg PO Q6-8H PRN (Reason: nausea and vomiting) Qty: 7 0RF No Action (DME) blood pressure monitor Kit See Rx Instructions .Route Qty: 1 0RF Rx Instructions: As directed escitalopram oxalate 10 mg tablet 10 mg PO DAILY Qty: 30 5RF aspirin [Adult Aspirin Regimen] 81 mg tablet,delayed release (DR/EC) 162 mg PO DAILY Qty: 120 5RF Vitamin Plus Low Iron 27 mg iron- 1 mg tablet 1 tab PO DAILY Qty: 30 11RF hydrocortisone [Anti-Itch (HC)] 1 % cream 1 appl topical BID-QID PRN (Reason: skin irritation) Qty: 28.4 1RF
[2021-07-16 22:43] LABS: Bacteria Urine TRACE /LPF; RBC Urine 0-2 /HPF (0); Squamous Epithelial Cell Urine 2+ /LPF
[2021-07-16 22:44] LABS: WBC Clumps Urine NOTED
[2021-07-16] MEDS: Ondansetron ODT 4 MG TAB.RAPDIS TRANSLINGU (22:44)
[2021-07-16] MEDS: Nitrofurantoin Monohyd/M-Cryst 100 MG CAPSULE PO (23:01)
[2021-07-16 23:04] VITALS: BP 113/77; PULSE 78; RESP 18; TEMP 37.3; O2SAT 98
== END 2021-07-16 23:11 | disposition home or self-care (01) ==
PROVIDERS: Emergency Provider Internal Medicine
DX: N39.0 Urinary tract infection, site not specified (principal); Z20.822 Contact with and (suspected) exposure to COVID-19; R11.0 Nausea; R42 Dizziness and giddiness
CPT/HCPCS: 80053; 81001; 81025; 85025; 87086; 87635; 99283; 99284

== ENCOUNTER 2021-11-04 11:37 | Outpatient (REF) | payer OTHER, SELFPAY ==
[2021-11-04 18:14] LABS: CT PCR NOT DETECTED (Not Detect.); NG PCR NOT DETECTED (Not Detect.)
[2021-11-05 10:27] LABS: BV Int Neg Control Negative (Negative); BV Int Pos Control Positive (Positive)
== END 2021-11-04 11:38 | disposition home or self-care (01) ==
LOC: HO.LAB 11:37
PROVIDERS: PCP Internal Medicine; Visit Provider Advanced Practice Midwife
DX: Z11.3 Encounter for screening for infections with a predominantly sexual mode of transmission (principal); E66.9 Obesity, unspecified; R19.7 Diarrhea, unspecified
CPT/HCPCS: 81025; 87480; 87491; 87510; 87591; 87660

== ENCOUNTER 2021-11-15 19:18 | Emergency (ER) | payer OTHER, SELFPAY ==
[2021-11-15 22:07] VITALS: BP 116/78; PULSE 65; RESP 15; TEMP 36.3; O2SAT 100; BMI 32.8
[2021-11-15 22:38] LABS: MANUAL DIFF FLAG NO
[2021-11-15 22:45] LABS: Basophils Percent Auto 0.3 % (0-2); Eosinophils Absolute Auto 0.1 X10*3/uL (0.0-0.4); Eosinophils Percent Auto 1.7 % (0-4); Hematocrit 37.3 % (37.0-47.0); Hemoglobin 11.5 g/dl (12.0-16.0); Imm Gran Abs Auto 0.01 X10*3/uL (0.00-0.03); Imm Gran Pct Auto 0.2 % (0.0-0.4); Lymphocytes Absolute Auto 2.1 X10*3/uL (1.2-4.9); Mean Corpuscular HGB Conc 30.8 g/dl (31.0-35.0); Mean Corpuscular Hemoglobin 26.4 pg (27.0-33.0); Mean Corpuscular Volume 85.6 fL (80.0-98.0); Mean Platelet Volume 10.2 fL (9.4-12.3); Monocytes Absolute Auto 0.6 X10*3/uL (0.1-1.2); Monocytes Percent Auto 9.9 % (2-11); Neutrophils Absolute Auto 3.1 x10*3/uL (2.0-8.3); Neutrophils Percent Auto 52.9 % (45-73); Platelet Count 281 X10*3/uL (160-400); Red Blood Count 4.36 X10*6/uL (4.20-5.50); Red Cell Distribution Width 15.1 % (11.0-16.0); White Blood Count 5.9 X10*3/uL (4.8-10.8)
[2021-11-15 22:47] LABS: Appearance Urine HAZY; Color Urine YELLOW; Glucose Urine UA NEG (NEG); Leukocyte Esterase Urine NEG (NEG); Nitrite Urine NEG (NEG); PH 6.5 (5.0-8.0); Urine Blood NEG (NEG); Urine Ketones NEG (NEG); Urine Protein NEG (NEG-TRACE)
[2021-11-15 22:49] LABS: UPreg QC Valid YES; Urine Pregnancy NEGATIVE (NEGATIVE)
[2021-11-15 23:02] LABS: Alanine Aminotransferase 18 U/L (0-31); Albumin Level 4.4 g/dL (3.5-5.0); Alkaline Phosphatase 72 U/L (39-117); Anion Gap 11 (12-20); Aspartate Amino Transferase 13 U/L (5-31); Bilirubin Direct < 0.2 mg/dL (0.0-0.5); Bilirubin Total 0.3 mg/dL (0.0-1.0); Blood Urea Nitrogen 14 mg/dL (9-16); Carbon Dioxide 25 mmol/L (22-29); Chloride 109 mmol/L (96-108); Creatinine Clr Calc Pharmacy 130.1; Estimated Glomerular Filt Rate > 60; Glucose Random 86 mg/dL (60-115); Lipase 28 U/L (8-78); Sodium 141 mmol/L (135-145); Total Protein 7.7 g/dL (6.5-8.0)
--- NOTE | 2021-11-15 23:16 | ED.GENADULT ---
HPI - General Adult General Chief complaint: General Medical Stated complaint: Asthma/Dizziness Time Seen by Provider: 11/15/21 23:16 Source: patient Mode of arrival: ambulatory History of Present Illness HPI narrative: Patient has multiple complaints complaining of diffuse abdominal pain with 2-3 times of loose bowels a day for few months increased anxiety shortness of breath at this time patient saturating 100% no nausea no vomiting no fever or chills Related Data Previous Rx's Medication Instructions Recorded dicyclomine 20 mg tablet 20 mg PO QID PRN abdominal pain 11/16/21 #30 tabs Allergies Allergy/AdvReac Type Severity Reaction Status Date / Time metronidazole [METRONIDAZOLE] Allergy Mild HIVES Verified 11/04/21 11:41 Review of Systems Review of Systems: Yes all other systems are reviewed and are negative PMFSH Past Medical History Medical History Anxiety Dermatitis Insomnia Paresthesia of bilateral legs Paresthesias Surgical History History of appendectomy No pertinent past surgical history Family History Family History Father Asthma Hx of diabetes mellitus Mother Asthma Hypothyroidism Arthritis Brother Depression Social History Social History Household Members: Family and Children Alcohol intake: never Patient Tobacco Use Status: Never used Tobacco e-Cigarette/Vaping Use: Never Used Advance Directives: No Sexual orientation: Straight/Heterosexual Gender identity: Female Physical Exam ED Vital Signs: Vital Signs - 24 hr 11/15/21 22:07 11/15/21 23:52 Temperature 97.3 F 98.2 F Pulse Rate 65 60 Respiratory Rate 15 18 Blood Pressure 116/78 121/86 Pulse Oximetry 100 99 Oxygen Delivery Method Room Air Room Air BMI result Body Mass Index 32.8 Appearance: Alert. Oriented X3. No acute distress. Anxious ENT: Pharynx normal. Oral Mucosa moist Neck: Normal inspection. Neck supple. CVS: Normal heart rate and rhythm. Pulses normal. Respiratory: No respiratory distress. Equal air entry bilateral, no wheezing/rales/rhonchi Abdomen: Soft and nontender. Bowel sounds are present, no mass palpable, no CVA tenderness Skin: Skin warm and dry. Normal skin color. Normal skin turgor. Extremities: No lower extremity edema. No calf tenderness Neuro: Oriented X 3. No motor deficit. Medical Decision Making MDM Narrative Medical decision making narrative: Patient clinically with IBS will discharge patient on dicyclomine labs are stable Lab Data Result diagrams: 11/15/21 22:32 11/15/21 22:32 Labs: Lab Results 11/15/21 11/15/21 11/15/21 Range/Units 22:25 22:25 22:32 WBC 5.9 (4.8-10.8) X10*3/uL RBC 4.36 (4.20-5.50) X10*6/uL Hgb 11.5 L (12.0-16.0) g/dl Hct 37.3 (37.0-47.0) % MCV 85.6 (80.0-98.0) fL MCH 26.4 L (27.0-33.0) pg MCHC 30.8 L (31.0-35.0) g/dl RDW 15.1 (11.0-16.0) % Plt Count 281 (160-400) X10*3/uL MPV 10.2 (9.4-12.3) fL Immature Gran % (Auto) 0.2 (0.0-0.4) % Neut % (Auto) 52.9 (45-73) % Lymph % (Auto) 35.0 (20-40) % [place] % (Auto) 9.9 (2-11) % Eos % (Auto) 1.7 (0-4) % Baso % (Auto) 0.3 (0-2) % Lymph # (Auto) 2.1 (1.2-4.9) X10*3/uL [place] # (Auto) 0.6 (0.1-1.2) X10*3/uL Eos # (Auto) 0.1 (0.0-0.4) X10*3/uL Baso # (Auto) 0.0 (0.0-0.2) X10*3/uL Abs Immat Gran (auto) 0.01 (0.00-0.03) X10*3/uL Absolute Neuts (auto) 3.1 (2.0-8.3) x10*3/uL Absolute Nucleated RBC 0.000 (0.0-0.012) X10*3/uL Nucleated RBC % (auto) 0.0 (0.0-0.2) /100WBC Sodium (135-145) mmol/L Potassium (3.3-5.1) mmol/L Chloride (96-108) mmol/L Carbon Dioxide (22-29) mmol/L Anion Gap (12-20) BUN (9-16) mg/dL Creatinine (0.5-1.4) mg/dL Estim Creat Clear Calc Estimated GFR Random Glucose (60-115) mg/dL Calcium (8.4-10.2) mg/dL Total Bilirubin (0.0-1.0) mg/dL Direct Bilirubin (0.0-0.5) mg/dL AST (5-31) U/L ALT (0-31) U/L Alkaline Phosphatase (39-117) U/L Total Protein (6.5-8.0) g/dL Albumin (3.5-5.0) g/dL Lipase (8-78) U/L Urine Color YELLOW Urine Appearance HAZY Urine pH 6.5 (5.0-8.0) Ur Specific [place] 1.020 (1.005-1.025) Urine Protein NEG (NEG-TRACE) MG/DL Urine Glucose (UA) NEG (NEG) MG/DL Urine Ketones NEG (NEG) MG/DL Urine Blood NEG (NEG) Urine Nitrite NEG (NEG) Ur Leukocyte Esterase NEG (NEG) Urine Test NEGATIVE (NEGATIVE) 11/15/21 Range/Units 22:32 WBC (4.8-10.8) X10*3/uL RBC (4.20-5.50) X10*6/uL Hgb (12.0-16.0) g/dl Hct (37.0-47.0) % MCV (80.0-98.0) fL MCH (27.0-33.0) pg MCHC (31.0-35.0) g/dl RDW (11.0-16.0) % Plt Count (160-400) X10*3/uL MPV (9.4-12.3) fL Immature Gran % (Auto) (0.0-0.4) % Neut % (Auto) (45-73) % Lymph % (Auto) (20-40) % [place] % (Auto) (2-11) % Eos % (Auto) (0-4) % Baso % (Auto) (0-2) % Lymph # (Auto) (1.2-4.9) X10*3/uL [place] # (Auto) (0.1-1.2) X10*3/uL Eos # (Auto) (0.0-0.4) X10*3/uL Baso # (Auto) (0.0-0.2) X10*3/uL Abs Immat Gran (auto) (0.00-0.03) X10*3/uL Absolute Neuts (auto) (2.0-8.3) x10*3/uL Absolute Nucleated RBC (0.0-0.012) X10*3/uL Nucleated RBC % (auto) (0.0-0.2) /100WBC Sodium 141 (135-145) mmol/L Potassium 4.0 (3.3-5.1) mmol/L Chloride 109 H (96-108) mmol/L Carbon Dioxide 25 (22-29) mmol/L Anion Gap 11 L (12-20) BUN 14 (9-16) mg/dL Creatinine 0.73 (0.5-1.4) mg/dL Estim Creat Clear Calc 130.1 Estimated GFR > 60 Random Glucose 86 (60-115) mg/dL Calcium 10.0 (8.4-10.2) mg/dL Total Bilirubin 0.3 (0.0-1.0) mg/dL Direct Bilirubin < 0.2 (0.0-0.5) mg/dL AST 13 (5-31) U/L ALT 18 (0-31) U/L Alkaline Phosphatase 72 D (39-117) U/L Total Protein 7.7 (6.5-8.0) g/dL Albumin 4.4 (3.5-5.0) g/dL Lipase 28 (8-78) U/L Urine Color Urine Appearance Urine pH (5.0-8.0) Ur Specific [place] (1.005-1.025) Urine Protein (NEG-TRACE) MG/DL Urine Glucose (UA) (NEG) MG/DL Urine Ketones (NEG) MG/DL Urine Blood (NEG) Urine Nitrite (NEG) Ur Leukocyte Esterase (NEG) Urine Test (NEGATIVE) Discharge Plan Discharge Clinical Impression: Irritable bowel syndrome, Anxiety Patient Disposition: Home, Self-Care Instructions: Irritable Bowel Syndrome (ED), Anxiety (ED) Additional Instructions: During plenty of fluids Medication for abdominal spasm as prescribed Follow with PCP as needed Prescriptions: New dicyclomine 20 mg tablet 20 mg PO QID PRN (Reason: abdominal pain) Qty: 30 0RF
[2021-11-15 23:52] VITALS: BP 121/86; PULSE 60; RESP 18; TEMP 36.8; O2SAT 99
== END 2021-11-16 00:31 | disposition home or self-care (01) ==
PROVIDERS: Emergency Provider Internal Medicine; PCP Internal Medicine
DX: K58.9 Irritable bowel syndrome, unspecified (principal); F41.9 Anxiety disorder, unspecified
CPT/HCPCS: 36415; 80053; 81003; 81025; 82248; 83690; 85025; 99283

== ENCOUNTER 2022-05-25 06:18 | Emergency (ER) | payer OTHER, SELFPAY ==
[2022-05-25 06:25] VITALS: BP 132/82; PULSE 100; O2SAT 99
[2022-05-25 06:32] VITALS: BP 116/74; PULSE 94; RESP 20; TEMP 36.3; O2SAT 99; BMI 33.3
[2022-05-25 07:22] LABS: MANUAL DIFF FLAG NO
[2022-05-25 07:26] LABS: Basophils Percent Auto 0.1 % (0-2); Eosinophils Absolute Auto 0.1 X10*3/uL (0.0-0.4); Eosinophils Percent Auto 1.8 % (0-4); Hematocrit 32.9 % (37.0-47.0); Hemoglobin 10.7 g/dl (12.0-16.0); Imm Gran Abs Auto 0.03 X10*3/uL (0.00-0.03); Imm Gran Pct Auto 0.4 % (0.0-0.4); Lymphocytes Absolute Auto 1.1 X10*3/uL (1.2-4.9); Lymphocytes Percent Auto 15.4 % (20-40); Mean Corpuscular HGB Conc 32.5 g/dl (31.0-35.0); Mean Corpuscular Hemoglobin 28.2 pg (27.0-33.0); Mean Corpuscular Volume 86.6 fL (80.0-98.0); Mean Platelet Volume 10.2 fL (9.4-12.3); Monocytes Absolute Auto 0.6 X10*3/uL (0.1-1.2); Monocytes Percent Auto 8.9 % (2-11); Neutrophils Absolute Auto 5.3 x10*3/uL (2.0-8.3); Neutrophils Percent Auto 73.4 % (45-73); Platelet Count 177 X10*3/uL (160-400); Red Cell Distribution Width 13.2 % (11.0-16.0); White Blood Count 7.2 X10*3/uL (4.8-10.8)
[2022-05-25 07:43] LABS: Anion Gap 12 (12-20); Blood Urea Nitrogen 7 mg/dL (9-16); Calcium 8.8 mg/dL (8.4-10.2); Carbon Dioxide 20 mmol/L (22-29); Chloride 108 mmol/L (96-108); Creatinine Clr Calc Pharmacy 166.3; Estimated Glomerular Filt Rate > 60; Glucose Random 93 mg/dL (60-115); Potassium 3.6 mmol/L (3.3-5.1); Sodium 136 mmol/L (135-145)
[2022-05-25 09:09] LABS: Appearance Urine Cloudy; Color Urine Yellow; Glucose Urine UA Negative (Negative); Leukocyte Esterase Urine Moderate (2+) (Negative); Nitrite Urine Negative (Negative); PH 6.5 (5.0-9.0); UMIC TRIGGER UACC YES; UPreg QC Valid YES; Urine Blood Moderate (2+) (Negative); Urine Ketones Negative (Negative); Urine Pregnancy POSITIVE (NEGATIVE); Urine Protein Trace mg/dL (Neg-Trace)
[2022-05-25 09:20] LABS: Bacteria Urine 4+ (None Seen); Hyaline Casts Urine 0-2 /LPF (0-2); UACC Culture Trigger YES
--- NOTE | 2022-05-25 09:36 | MHC.EDTECH ---
heart rate obtained , 141 bpm.
--- NOTE | 2022-05-25 09:36 | PM.OBCN ---
OB Consult Note - HPI Data Service Date: 05/25/22 Primary Care Provider: Fartun Grady MD Narrative I was consulted at 09:31 on Dayanara Fang who is a 27 year old female at 24 weeks of gestation complaining of left upper quadrant pain and left flank pain. The emergency room the following workup was done: CBC showed normal white count no evidence of leukocytosis, H&H 32.9/10.7, a UA showed positive blood, positive leukocyte esterase co positive for WBC and RBCs OB PMFSH Past Medical History Medical History Anxiety Depression Dermatitis Eye strain, bilateral Generalized anxiety disorder Insomnia Intermittent asthma without complication Irregular menstrual bleeding Lesion of skin of scalp Paresthesia of bilateral legs Paresthesias Recurrent headache Family History Family History Father Asthma Hx of diabetes mellitus Mother Asthma Hypothyroidism Arthritis Brother Depression Surgical History Surgical History History of appendectomy No pertinent past surgical history Social History Social History Household Members: Family and Children Alcohol intake: never Patient Tobacco Use Status: Never used Tobacco e-Cigarette/Vaping Use: Never Used Advance Directives: No Patient : Yes Sexual orientation: Straight/Heterosexual Gender identity: Female Meds Allergies Allergy/AdvReac Type Severity Reaction Status Date / Time metronidazole [METRONIDAZOLE] Allergy Mild HIVES Verified 05/25/22 06:37 OB Flowsheet OB Flowsheet & Tools Past Pregnancies Del. Date GA/Weeks Outcome Route Wt Inf Gender Labor Carmen Anesthesia Location Provider Complicate Unknown other 02/03/17 42 live - full term vaginal delivery 7 lb 4 oz Female 12 epidural [facility] History 3 Elective abortions 0 Para 2 Spontaneous abortions 0 Hx # Term Pregnancies 1 Ectopic pregnancies 0 Hx # Pregnancies 0 Multiple births 0 OB Physical Exam Physical Exam Additional Comments: Physical exam reported by CRIS Devries: Left CVA tenderness heart rate 141 beats per minute OB Consult Results Labs 05/25/22 07:17 05/25/22 07:17 Labs: Short CBC 05/25/22 Range/Units 07:17 WBC 7.2 (4.8-10.8) X10*3/uL Hgb 10.7 L (12.0-16.0) g/dl Hct 32.9 L (37.0-47.0) % Plt Count 177 D (160-400) X10*3/uL BMP 05/25/22 07:17 Sodium 136 Potassium 3.6 Chloride 108 Carbon Dioxide 20 L BUN 7 L Creatinine 0.57 Calcium 8.8 D Urine 05/25/22 05/25/22 Range/Units 09:00 09:00 Urine Color Yellow Urine Appearance Cloudy Urine pH 6.5 (5.0-9.0) Ur Specific [place] 1.010 (1.005-1.025) Urine Protein Trace (Neg-Trace) mg/dL Urine Glucose (UA) Negative (Negative) mg/dL Urine Test POSITIVE H (NEGATIVE) OB - CN: A/P Assessment and Plan (1) 24 weeks gestation of : Status: Acute Plan 09:35, I sent the following recommendation by [facility]. Since UA is positive for RBCs, WBCs and leukocyte esterase, recommended the following to [facility]: Ceftriaxone 1 g IV, transfer to [facility] , the patient is to be monitored for labor while being worked up for the left upper quadrant pain, and pyelonephritis. I spent a total of 20 minutes reviewing the chart, communicating to the emergency room provider and documenting in the medical record Time Spent With Patient Time: Total time managing care of this patient today ____ minutes.
--- NOTE | 2022-05-25 09:43 | ED_ITS ---
HPI - General Chief complaint: Nausea/Vomiting/Diarrhea Stated complaint: vomiting Time Seen by Provider: 05/25/22 09:18 Source: patient Mode of arrival: ambulatory Limitations: no limitations History of Present Illness HPI Narrative: 27-year-old female [id number] currently 6 months with a due date of 08/12/2021 currently being followed by Keshav WAYNEN had the ultrasound to confirm intrauterine a few months ago has not been seen by Ob in the past 2 months is presenting to the ER with complaints of nausea/vomiting with left upper quadrant/left flank/left back pain that started this morning. She reports she has never had this pain in the past. She denies any fevers, chills, dizziness, headaches, sore throat, nasal congestion/rhinorrhea, cough, black or bloody emesis, chest pain or shortness of breath, dysuria, hematuria, abnormal vaginal discharge, black or bloody stools, diarrhea constipation, vaginal discharge, rashes, recent falls or trauma or any other symptoms complaints or concerns at this time. MD Complaint: abdominal pain Onset (ago): hour(s) (Prior to arrival) Pain Consistency: constant Location: abdomen (Left upper quadrant) and flank (Left side) Severity: mild Quality: Aching Relieving factors: none Exacerbating factors: none Associated symptoms: nausea and vomiting Vaginal discharge: none Vaginal bleeding: none Patient : Yes Expected Date of Delivery: 08/12/22 OB History - Current : no complications OB History - Previous Pregnancies: no complications care: followed by OB Related Data : 3 Para: 2 Total number of abortions (spontaneous and elective): 0 Previous Rx's Medication Instructions Recorded dicyclomine 20 mg tablet 20 mg PO QID PRN abdominal pain 11/16/21 #30 tabs Allergies Allergy/AdvReac Type Severity Reaction Status Date / Time metronidazole [METRONIDAZOLE] Allergy Mild HIVES Verified 05/25/22 06:37 Review of Systems Review of Systems: Constitutional : No Fever, No Chills ENT/Mouth : No sore throat, No Rhinorrhea Eyes: No Eye Pain, No Redness Cardiovascular : No Chest Pain, No SOB Respiratory : No Cough, No Sputum, No Wheezing Gastrointestinal : + Nausea, + Vomiting, No Diarrhea, + LUQ abdominal pain, Genitourinary : + left flank pain, No irregular bleeding, No Dysuria, No Urinary Frequency, No pelvic pain Musculoskeletal : No Myalgias Skin : No rash Neuro : No Weakness, No Headache Psych : No Anxiety/Panic, No Depression Heme/Lymph: No bruising, No Lymphadenopathy Endocrine : No Polyuria, No Polydipsia Yes all other systems are reviewed and are negative [facility] Past Medical History Attestation statement: The following information was validated with the patient. Source: old records reviewed and nursing notes reviewed Medical History Anxiety Depression Dermatitis Eye strain, bilateral Generalized anxiety disorder Insomnia Intermittent asthma without complication Irregular menstrual bleeding Lesion of skin of scalp Paresthesia of bilateral legs Paresthesias Recurrent headache Surgical History History of appendectomy No pertinent past surgical history : 3 Para: 2 Total number of abortions (spontaneous and elective): 0 Family History Family History Father Asthma Hx of diabetes mellitus Mother Asthma Hypothyroidism Arthritis Brother Depression Social History Social History Household Members: Family and Children Alcohol intake: never Patient Tobacco Use Status: Never used Tobacco e-Cigarette/Vaping Use: Never Used Advance Directives: No Patient : Yes Sexual orientation: Straight/Heterosexual Gender identity: Female Physical Exam Vital Signs: Vital Signs: Last Vital Signs Temp 97.3 F 05/25/22 09:45 Pulse 89 05/25/22 09:45 Resp 18 05/25/22 09:45 BP 112/68 05/25/22 09:45 Pulse Ox 98 05/25/22 09:45 O2 Del Method 05/25/22 09:45 BMI result Body Mass Index 33.3 vital signs have been reviewed as normal and appeared to be correct. Blood pressure normal. Heart rate normal. Respiration rate normal. Temperature normal. Oxygen saturation normal. Appearance: Alert. Oriented X3. No acute distress. Head: Normal external exam. Normocephalic. Eyes: PERRLA. EOMI. Conjunctiva and sclera normal. Eyelids normal. ENT: Pharynx normal. Uvula midline. Moist mucous membranes. No trismus noted. No drooling noted. No muffled voice noted. Neck: Normal inspection. Neck supple. FROM. No adenopathy. No meningeal signs. CVS: Normal heart rate and rhythm. Heart sound normal. No murmurs noted. Pulses normal throughout. Respiratory: No respiratory distress. Painless inspiration. Breath sounds normal. No wheezes/rales/rhonchi noted. Chest nontender. No accessory muscle usage noted or decreased air movement noted. Abdomen: Soft and LUQ/Left flank area of abdomen. Nondistended. No guarding. No rigidity. Bowel sounds normal in all 4 quadrants. No distention noted. No organomegaly noted. No visible injury noted. No rebound tenderness. Negative Rovsing sign. Negative obturator's sign. Negative psoas sign. Negative Mclaughlin sign. Abdomen with gravid uterus consistent with dates. Back: + left sided CVA tenderness. No RCVAT. Full range of motion noted. No rashes are noted. No signs of infection noted. Skin: Skin warm and dry. Normal skin color. Normal skin turgor. No rashes/lesions/lacerations noted. Extremities: Extremities exhibit normal range of motion. Extremities nontender. Neuro: Oriented X 3. No motor deficit. No sensory deficit. Reflexes normal. Normal steady gait. CN's II-XII intact bilaterally? Course Course Course Narrative: 9:30am - 27-year-old female [id number] currently 6 months with a due date of 08/12/2021 currently being followed by Keshav WAYNEN had the ultrasound to confirm intrauterine a few months ago has not been seen by Ob in the past 2 months is presenting to the ER with complaints of nausea/vomiting with left upper quadrant/left flank/left back pain that started this morning. She reports she has never had this pain in the past. When patient arrived around 630 she had her blood drawn she was not seen until 930 by a provider and at this time I reviewed the labs which revealed mild anemia with an H&H of 10.7/32.9. Carbon dioxide 20. BUN 7. UA revealed cloudy urine with trace of protein and moderate amount of blood with moderate amount of leuko sites. Negative nitrates. On exam patient is alert and oriented x3. Not in any acute distress. Vital signs are stable within normal limits. Patient does have mild tenderness to the left upper quadrant/left flank area. She is also noted to have left CVA tenderness. No right CVA tenderness is noted. This female patient presents with LUQ/Left Flank/LCVAT, concerning for UTI vs pyelonephritis. DDX includes pre term labor, TOA, PID, and other infectious symptoms but patient has no constitutional symptoms of infection. Ectopic is on the differential but unlikely. Also includes, endometriosis, adenomyosis but these are less likely. Doubt appendicitis or other primary gastrointestinal process. Plan: She did not have any additional labs therefore I added LFTs, serum quant, lipase. I also consulted with Dr. Rodriguez the OBGYN here at [facility] who recommended transferring the patient to the [facility] for further evaluation treatment as we need to rule out labor. Patient understands and is agreeable to this. Therefore blood cultures and lactic acid also ordered along with IV fluids and a g of Rocephin. Awaiting for [facility] to call back. Reevaluation(s) Reevaluation #1: Patient accepted to [facility] at [facility] for further evaluation treatment. Excepting doctor is Jo Hunter. Therefore patient will be transported via EMS at this time. Patient understands agrees with this plan. Time: 10:34 Medications Administered Generic Name Dose Route Start Last Admin Trade Name Freq PRN Reason Stop Dose Admin Sodium Chloride 1,710 mls @ 1,710 mls/hr 05/25/22 09:47 05/25/22 09:57 Ns IV 05/25/22 10:46 1,710 mls/hr .Q1H STA Administration Discontinued Medications Generic Name Dose Route Start Last Admin Trade Name Freq PRN Reason Stop Dose Admin Acetaminophen 975 mg 05/25/22 09:28 05/25/22 09:55 Acetaminophen 325 Mg Tablet PO 05/25/22 09:29 975 mg ONCE ONE Administration Ceftriaxone Sodium 1 gm/ 50 mls @ 100 mls/hr 05/25/22 09:40 05/25/22 09:55 Sodium Chloride IV 05/25/22 10:09 100 mls/hr ONCE ONE Administration Medical Decision Making Lab Data [facility] Lab Attestation statement: I reviewed the patient's lab results. Result Diagrams: 05/25/22 07:17 05/25/22 07:17 Labs: Lab Results 05/25/22 05/25/22 05/25/22 Range/Units 07:17 07:17 09:00 WBC 7.2 (4.8-10.8) X10*3/uL RBC 3.80 L (4.20-5.50) X10*6/uL Hgb 10.7 L (12.0-16.0) g/dl Hct 32.9 L (37.0-47.0) % MCV 86.6 (80.0-98.0) fL MCH 28.2 (27.0-33.0) pg MCHC 32.5 (31.0-35.0) g/dl RDW 13.2 (11.0-16.0) % Plt Count 177 D (160-400) X10*3/uL MPV 10.2 (9.4-12.3) fL Immature Gran % (Auto) 0.4 (0.0-0.4) % Neut % (Auto) 73.4 H (45-73) % Lymph % (Auto) 15.4 L (20-40) % [place] % (Auto) 8.9 (2-11) % Eos % (Auto) 1.8 (0-4) % Baso % (Auto) 0.1 (0-2) % Lymph # (Auto) 1.1 L (1.2-4.9) X10*3/uL [place] # (Auto) 0.6 (0.1-1.2) X10*3/uL Eos # (Auto) 0.1 (0.0-0.4) X10*3/uL Baso # (Auto) 0.0 (0.0-0.2) X10*3/uL Abs Immat Gran (auto) 0.03 (0.00-0.03) X10*3/uL Absolute Neuts (auto) 5.3 (2.0-8.3) x10*3/uL Absolute Nucleated RBC 0.000 (0.0-0.012) X10*3/uL Nucleated RBC % (auto) 0.0 (0.0-0.2) /100WBC Sodium 136 (135-145) mmol/L Potassium 3.6 (3.3-5.1) mmol/L Chloride 108 (96-108) mmol/L Carbon Dioxide 20 L (22-29) mmol/L Anion Gap 12 (12-20) BUN 7 L (9-16) mg/dL Creatinine 0.57 (0.5-1.4) mg/dL Estim Creat Clear Calc 166.3 Estimated GFR > 60 Random Glucose 93 (60-115) mg/dL Lactic Acid (0.5-2.0) mmol/L Calcium 8.8 D (8.4-10.2) mg/dL Magnesium 1.7 (1.6-2.6) mg/dL Total Bilirubin 0.2 (0.0-1.0) mg/dL Direct Bilirubin < 0.2 (0.0-0.5) mg/dL AST 8 (5-31) U/L ALT 6 (0-31) U/L Alkaline Phosphatase 66 (39-117) U/L Total Protein 5.9 L (6.5-8.0) g/dL Albumin 3.2 L (3.5-5.0) g/dL Amylase 97 (28-100) U/L Lipase 28 (8-78) U/L Beta HCG, Quant 49425 mIU/mL Urine Color Yellow Urine Appearance Cloudy Urine pH 6.5 (5.0-9.0) Ur Specific [place] 1.010 (1.005-1.025) Urine Protein Trace (Neg-Trace) mg/dL Urine Glucose (UA) Negative (Negative) mg/dL Urine Ketones Negative (Negative) mg/dL Urine Blood Moderate (2+) H (Negative) Urine Nitrite Negative (Negative) Ur Leukocyte Esterase Moderate (2+) H (Negative) Urine RBC 3-5 H (0-2) /HPF Urine WBC 11-20 H (0-5) /HPF Ur Squamous Epith Cells 11-20 (0-2) /HPF Urine Bacteria 4+ (None Seen) Hyaline Casts 0-2 (0-2) /LPF Urine Test (NEGATIVE) COVID-19 (JOVITA) (Negative) COVID-19 Clin Com 05/25/22 05/25/22 05/25/22 Range/Units 09:00 09:53 09:53 WBC (4.8-10.8) X10*3/uL RBC (4.20-5.50) X10*6/uL Hgb (12.0-16.0) g/dl Hct (37.0-47.0) % MCV (80.0-98.0) fL MCH (27.0-33.0) pg MCHC (31.0-35.0) g/dl RDW (11.0-16.0) % Plt Count (160-400) X10*3/uL MPV (9.4-12.3) fL Immature Gran % (Auto) (0.0-0.4) % Neut % (Auto) (45-73) % Lymph % (Auto) (20-40) % [place] % (Auto) (2-11) % Eos % (Auto) (0-4) % Baso % (Auto) (0-2) % Lymph # (Auto) (1.2-4.9) X10*3/uL [place] # (Auto) (0.1-1.2) X10*3/uL Eos # (Auto) (0.0-0.4) X10*3/uL Baso # (Auto) (0.0-0.2) X10*3/uL Abs Immat Gran (auto) (0.00-0.03) X10*3/uL Absolute Neuts (auto) (2.0-8.3) x10*3/uL Absolute Nucleated RBC (0.0-0.012) X10*3/uL Nucleated RBC % (auto) (0.0-0.2) /100WBC Sodium (135-145) mmol/L Potassium (3.3-5.1) mmol/L Chloride (96-108) mmol/L Carbon Dioxide (22-29) mmol/L Anion Gap (12-20) BUN (9-16) mg/dL Creatinine (0.5-1.4) mg/dL Estim Creat Clear Calc Estimated GFR Random Glucose (60-115) mg/dL Lactic Acid 0.7 (0.5-2.0) mmol/L Calcium (8.4-10.2) mg/dL Magnesium (1.6-2.6) mg/dL Total Bilirubin (0.0-1.0) mg/dL Direct Bilirubin (0.0-0.5) mg/dL AST (5-31) U/L ALT (0-31) U/L Alkaline Phosphatase (39-117) U/L Total Protein (6.5-8.0) g/dL Albumin (3.5-5.0) g/dL Amylase (28-100) U/L Lipase (8-78) U/L Beta HCG, Quant mIU/mL Urine Color Urine Appearance Urine pH (5.0-9.0) Ur Specific [place] (1.005-1.025) Urine Protein (Neg-Trace) mg/dL Urine Glucose (UA) (Negative) mg/dL Urine Ketones (Negative) mg/dL Urine Blood (Negative) Urine Nitrite (Negative) Ur Leukocyte Esterase (Negative) Urine RBC (0-2) /HPF Urine WBC (0-5) /HPF Ur Squamous Epith Cells (0-2) /HPF Urine Bacteria (None Seen) Hyaline Casts (0-2) /LPF Urine Test POSITIVE H (NEGATIVE) COVID-19 (JOVITA) Negative (Negative) COVID-19 Clin Com See Note Prescription Management I considered prescription management with: Antibiotic Critical Care Time Critical Care Time Critical Care Time: Yes Total Critical Care Time: 60 Attestation: I personally attest to this time spent taking care of the patient Discharge Plan Discharge Clinical Impression: UTI (urinary tract infection), Pyelonephritis affecting Patient Disposition: Xfer Acute Care Hospital Transfer Details: [facility] Dr. Jo Hunter Prescriptions: No Action dicyclomine 20 mg tablet 20 mg PO QID PRN (Reason: abdominal pain) Qty: 30 0RF
[2022-05-25 09:45] VITALS: BP 112/68; PULSE 89; RESP 18; TEMP 36.3; O2SAT 98
[2022-05-25 09:51] LABS: Alanine Aminotransferase 6 U/L (0-31); Albumin Level 3.2 g/dL (3.5-5.0); Alkaline Phosphatase 66 U/L (39-117); Amylase 97 U/L (28-100); Aspartate Amino Transferase 8 U/L (5-31); Bilirubin Direct < 0.2 mg/dL (0.0-0.5); Bilirubin Total 0.2 mg/dL (0.0-1.0); Lipase 28 U/L (8-78); Magnesium 1.7 mg/dL (1.6-2.6); Total Protein 5.9 g/dL (6.5-8.0)
[2022-05-25] MEDS: Acetaminophen 325 MG TABLET 975 MG PO (09:55)
[2022-05-25] MEDS: cefTRIAXone sodium 1 GM in 0.9 % Sodium Chloride 50 ML IV (09:55)
[2022-05-25 10:04] LABS: HCG Quantitative 25310 mIU/mL
[2022-05-25 10:18] LABS: Lactic Acid 0.7 mmol/L (0.5-2.0)
[2022-05-25 10:22] LABS: COVID-19 Test Negative (Negative); IDNOW Serial# BCCEAD1C
== END 2022-05-25 12:15 | disposition short-term general hospital (02) ==
PROVIDERS: Physician Assistant Medical; Emergency Provider Emergency Medicine Emergency Medical Services; PCP Internal Medicine
DX: O23.42 Unspecified infection of urinary tract in pregnancy, second trimester (principal); N39.0 Urinary tract infection, site not specified; Z3A.24 24 weeks gestation of pregnancy; Z20.822 Contact with and (suspected) exposure to COVID-19; Z79.899 Other long term (current) drug therapy
CPT/HCPCS: 36415; 80048; 80076; 81001; 81025; 82150; 83605; 83690; 83735; 84702; 85025; 86900; 86901; 87040; 87086; 87147; 87205; 87635; 96365; 96366; 99285; J0696

== ENCOUNTER 2022-06-04 00:59 | Emergency (ER) | payer OTHER, SELFPAY ==
--- NOTE | ~2022-06-04 | US_ITS ---
EXAMINATION: ULTRASOUND OB LIMITED CLINICAL INFORMATION: Right upper quadrant pain. COMPARISON: None TECHNIQUE: Transabdominal sonographic evaluation of the pelvis. FINDINGS: Intrauterine identified with cephalic presentation. Posterior/fundal placenta. Normal movement. There is a normal heart rate at 142 bpm. No measurements performed. US/US OB limited IMPRESSION: Single live intrauterine with normal heart rate.
--- NOTE | ~2022-06-04 | US_ITS ---
EXAMINATION: US ABDOMEN LIMITED CLINICAL INFORMATION: 24 weeks . Right upper quadrant pain.. COMPARISON: None TECHNIQUE: Real-time imaging of the gallbladder. FINDINGS: GALLBLADDER: Normal. The gallbladder is physiologically distended without evidence of stones, sludge, polyps, wall thickening or pericholecystic fluid. COMMON BILE DUCT: Normal in caliber measuring 0.5 cm in diameter. FREE FLUID: None. US/US abdomen limited IMPRESSION: Normal appearance of the gallbladder.
[2022-06-04 01:08] VITALS: BP 109/63; PULSE 116; RESP 20; TEMP 36.4; O2SAT 99; BMI 34.9
--- NOTE | 2022-06-04 01:09 | ED.ABDPAIN ---
HPI - Abdominal Pain General Chief Complaint: Abdominal Pain Stated Complaint: abdominal pain, 7 months Time Seen by Provider: 06/04/22 01:06 Source: patient Mode of arrival: EMS Limitations: no limitations History of Present Illness HPI narrative: Patient is 6 months EDC 08/12/2022 OB care from [facility] L[facility] complaining of epigastric pain with vomiting since evening today no history of similar pain in the past no history of gallstones no vaginal bleeding patient does feel baby movements no vaginal bleeding patient on cephalexin for UTI for last 4 days denies any urinary symptoms at this time Related Data Previous Rx's Medication Instructions Recorded dicyclomine 20 mg tablet 20 mg PO QID PRN abdominal pain 11/16/21 #30 tabs ondansetron 4 mg disintegrating 4 mg PO Q6-8H PRN nausea and 06/04/22 tablet vomiting #10 tabs Allergies Allergy/AdvReac Type Severity Reaction Status Date / Time metronidazole [METRONIDAZOLE] Allergy Mild HIVES Verified 06/04/22 01:12 Review of Systems Review of Systems Yes all other systems are reviewed and are negative PMFSH Past Medical History Medical History Anxiety Depression Dermatitis Eye strain, bilateral Generalized anxiety disorder Insomnia Intermittent asthma without complication Irregular menstrual bleeding Lesion of skin of scalp Paresthesia of bilateral legs Paresthesias Recurrent headache Surgical History History of appendectomy No pertinent past surgical history Family History Family History Father Asthma Hx of diabetes mellitus Mother Asthma Hypothyroidism Arthritis Brother Depression Social History Social History Household Members: Family and Children Alcohol intake: never Patient Tobacco Use Status: Never used Tobacco Smoked in Last 30 Days: No e-Cigarette/Vaping Use: Never Used Advance Directives: No Advance Directives Information Provided: No Sexual orientation: Straight/Heterosexual Gender identity: Female Physical Exam ED Vital Signs: Vital Signs - 24 hr 06/04/22 01:08 06/04/22 03:00 06/04/22 06:22 Temperature 97.6 F 98.1 F 97.6 F Pulse Rate 116 H 96 118 H Respiratory Rate 20 17 18 Blood Pressure 109/63 103/61 114/73 Pulse Oximetry 99 96 97 Oxygen Delivery Method Room Air Room Air Room Air BMI result Body Mass Index 34.9 Appearance: Alert. Oriented X3. No acute distress. ENT: Pharynx normal. Oral Mucosa moist Neck: Normal inspection. Neck supple. CVS: Normal heart rate and rhythm. Pulses normal. Respiratory: No respiratory distress. Equal air entry bilateral, no wheezing/rales/rhonchi Abdomen: Gravid uterus tenderness in epigastric area and right upper quadrant Bowel sounds are present, , no CVA tenderness Skin: Skin warm and dry. Normal skin color. Normal skin turgor. Extremities: No lower extremity edema. No calf tenderness Neuro: Oriented X 3. Medical Decision Making Medical Decision Making [facility] Narrative: Patient 6 months with right upper quadrant and epigastric pain normal movement normal heart sounds ultrasound was done which was negative for gallstones urine still showing UTI discharge patient received dose of IV Rocephin advised to continue her antibiotics and follow with PCP patient denies any vaginal discharge looks comfortable at this time Lab Data [facility] Lab Attestation statement: I reviewed the patient's lab results. 06/04/22 01:24 06/04/22 01:24 Labs: Lab Results 06/04/22 06/04/22 06/04/22 Range/Units 01:24 01:24 01:24 WBC 13.0 H (4.8-10.8) X10*3/uL RBC 4.22 (4.20-5.50) X10*6/uL Hgb 11.8 L (12.0-16.0) g/dl Hct 35.9 L (37.0-47.0) % MCV 85.1 (80.0-98.0) fL MCH 28.0 (27.0-33.0) pg MCHC 32.9 (31.0-35.0) g/dl RDW 13.2 (11.0-16.0) % Plt Count 250 D (160-400) X10*3/uL MPV 10.0 (9.4-12.3) fL Immature Gran % (Auto) 0.4 (0.0-0.4) % Neut % (Auto) 78.2 H (45-73) % Lymph % (Auto) 12.7 L (20-40) % [place] % (Auto) 7.8 (2-11) % Eos % (Auto) 0.7 (0-4) % Baso % (Auto) 0.2 (0-2) % Lymph # (Auto) 1.6 (1.2-4.9) X10*3/uL [place] # (Auto) 1.0 (0.1-1.2) X10*3/uL Eos # (Auto) 0.1 (0.0-0.4) X10*3/uL Baso # (Auto) 0.0 (0.0-0.2) X10*3/uL Abs Immat Gran (auto) 0.05 H (0.00-0.03) X10*3/uL Absolute Neuts (auto) 10.1 H (2.0-8.3) x10*3/uL Absolute Nucleated RBC 0.000 (0.0-0.012) X10*3/uL Nucleated RBC % (auto) 0.0 (0.0-0.2) /100WBC Sodium 138 (135-145) mmol/L Potassium 3.7 (3.3-5.1) mmol/L Chloride 107 (96-108) mmol/L Carbon Dioxide 20 L (22-29) mmol/L Anion Gap 15 (12-20) BUN 8 L (9-16) mg/dL Creatinine 0.60 (0.5-1.4) mg/dL Estim Creat Clear Calc 162.0 Estimated GFR > 60 Random Glucose 90 (60-115) mg/dL Calcium 9.2 (8.4-10.2) mg/dL Total Bilirubin 0.2 (0.0-1.0) mg/dL AST 10 (5-31) U/L ALT 13 (0-31) U/L Alkaline Phosphatase 76 (39-117) U/L Total Protein 6.5 (6.5-8.0) g/dL Albumin 3.4 L (3.5-5.0) g/dL Lipase 31 (8-78) U/L Urine Color Urine Appearance Urine pH (5.0-9.0) Ur Specific [place] (1.005-1.025) Urine Protein (Neg-Trace) mg/dL Urine Glucose (UA) (Negative) mg/dL Urine Ketones (Negative) mg/dL Urine Blood (Negative) Urine Nitrite (Negative) Ur Leukocyte Esterase (Negative) Urine RBC (0-2) /HPF Urine WBC (0-5) /HPF Ur Squamous Epith Cells (0-2) /HPF Urine Bacteria (None Seen) Hyaline Casts (0-2) /LPF COVID-19 (JOVITA) Negative (Negative) COVID-19 Clin Com See Note 06/04/22 Range/Units 04:23 WBC (4.8-10.8) X10*3/uL RBC (4.20-5.50) X10*6/uL Hgb (12.0-16.0) g/dl Hct (37.0-47.0) % MCV (80.0-98.0) fL MCH (27.0-33.0) pg MCHC (31.0-35.0) g/dl RDW (11.0-16.0) % Plt Count (160-400) X10*3/uL MPV (9.4-12.3) fL Immature Gran % (Auto) (0.0-0.4) % Neut % (Auto) (45-73) % Lymph % (Auto) (20-40) % [place] % (Auto) (2-11) % Eos % (Auto) (0-4) % Baso % (Auto) (0-2) % Lymph # (Auto) (1.2-4.9) X10*3/uL [place] # (Auto) (0.1-1.2) X10*3/uL Eos # (Auto) (0.0-0.4) X10*3/uL Baso # (Auto) (0.0-0.2) X10*3/uL Abs Immat Gran (auto) (0.00-0.03) X10*3/uL Absolute Neuts (auto) (2.0-8.3) x10*3/uL Absolute Nucleated RBC (0.0-0.012) X10*3/uL Nucleated RBC % (auto) (0.0-0.2) /100WBC Sodium (135-145) mmol/L Potassium (3.3-5.1) mmol/L Chloride (96-108) mmol/L Carbon Dioxide (22-29) mmol/L Anion Gap (12-20) BUN (9-16) mg/dL Creatinine (0.5-1.4) mg/dL Estim Creat Clear Calc Estimated GFR Random Glucose (60-115) mg/dL Calcium (8.4-10.2) mg/dL Total Bilirubin (0.0-1.0) mg/dL AST (5-31) U/L ALT (0-31) U/L Alkaline Phosphatase (39-117) U/L Total Protein (6.5-8.0) g/dL Albumin (3.5-5.0) g/dL Lipase (8-78) U/L Urine Color Yellow Urine Appearance Clear Urine pH 6.5 (5.0-9.0) Ur Specific [place] 1.020 (1.005-1.025) Urine Protein Trace (Neg-Trace) mg/dL Urine Glucose (UA) Negative (Negative) mg/dL Urine Ketones 80 (Negative) mg/dL Urine Blood Negative (Negative) Urine Nitrite Negative (Negative) Ur Leukocyte Esterase Small (1+) H (Negative) Urine RBC 3-5 H (0-2) /HPF Urine WBC 11-20 H (0-5) /HPF Ur Squamous Epith Cells 6-10 (0-2) /HPF Urine Bacteria 1+ (None Seen) Hyaline Casts 0-2 (0-2) /LPF COVID-19 (JOVITA) (Negative) COVID-19 Clin Com Medications Administered Discontinued Medications Generic Name Dose Route Start Last Admin Trade Name Freq PRN Reason Stop Dose Admin Acetaminophen 650 mg 06/04/22 04:41 06/04/22 05:15 Acetaminophen 325 Mg Tablet PO 06/04/22 04:42 650 mg ONCE ONE Administration Famotidine 20 mg 06/04/22 01:19 06/04/22 01:31 Famotidine/Pf 20 Mg/2 Ml Vial IVPUSH 06/04/22 01:20 20 mg ONCE ONE Administration Sodium Chloride 1,000 mls @ 999 mls/hr 06/04/22 01:17 06/04/22 03:54 Ns IV 06/04/22 02:17 Infused .Q1H1M ONE Infusion Ceftriaxone Sodium 1 gm/ 50 mls @ 100 mls/hr 06/04/22 04:40 06/04/22 05:15 Sodium Chloride IV 06/04/22 05:09 100 mls/hr ONCE ONE Administration Ondansetron HCl 4 mg 06/04/22 01:19 06/04/22 01:31 Ondansetron Hcl 4 Mg/2 Ml Vial IVPUSH 06/04/22 01:20 4 mg ONCE ONE Administration Discharge Plan Discharge Clinical Impression: UTI (urinary tract infection) Patient Disposition: Home, Self-Care Instructions: Urinary Tract Infection in (ED) Additional Instructions: Continue antibiotic as prescribed Zofran for nausea Tylenol for pain Follow-up with the chief console operator Report to ER if any vaginal bleed Prescriptions: New ondansetron 4 mg tablet,disintegrating 4 mg PO Q6-8H PRN (Reason: nausea and vomiting) Qty: 10 0RF No Action dicyclomine 20 mg tablet 20 mg PO QID PRN (Reason: abdominal pain) Qty: 30 0RF Interventions: ED Discharge Assessment Last Done: 06/04/22 06:25 Discharge Date/Time: 06/04/22 06:25
[2022-06-04 01:14] VITALS: BP 130/80; PULSE 140
[2022-06-04 01:29] LABS: MANUAL DIFF FLAG NO
--- OUTSIDE RECORDS SUMMARY | 2022-06-04 01:29 | XMS_ITS ---
:1995 Author Care Team Providers Name Role Phone Marleny Aceves Primary Care Provider Unavailable Allergies None recorded. Medications Name Status Start Date Stop Date ? ? ciprofloxacin 500 mg tablet Active ? Not available ibuprofen 600 mg tablet Active ? Not avai lable metronidazole 0.75 % (37.5 mg/5 gram) vaginal gel Active ? Not available monistat 7 combination pack 100 & 2 mg-% (9gm) kit Active ? Not available 28 mg iron-800 mcg tablet Active ? Not available TriNessa (28) 0.18 mg(7)/0.215 mg(7)/0.25 mg(7)-35 mcg Active ? Not available tablet Problems None recorded. Procedures None recorded. Results Lab Results None recorded. Past Encounters None recorded. Social History None recorded. Vaccine List None recorded. Plan of Care Reminders Provider Appointments None recorded. ? ? Lab None recorded. ? ? Referral None recorded. ? ? Procedures None recorded. ? ? Surgeries None recorded. ? ? Imaging None recorded. ? ? Vitals None recorded.
[2022-06-04 01:30] LABS: Basophils Percent Auto 0.2 % (0-2); Eosinophils Absolute Auto 0.1 X10*3/uL (0.0-0.4); Eosinophils Percent Auto 0.7 % (0-4); Hematocrit 35.9 % (37.0-47.0); Hemoglobin 11.8 g/dl (12.0-16.0); Imm Gran Abs Auto 0.05 X10*3/uL (0.00-0.03); Imm Gran Pct Auto 0.4 % (0.0-0.4); Lymphocytes Absolute Auto 1.6 X10*3/uL (1.2-4.9); Lymphocytes Percent Auto 12.7 % (20-40); Mean Corpuscular HGB Conc 32.9 g/dl (31.0-35.0); Mean Corpuscular Volume 85.1 fL (80.0-98.0); Monocytes Percent Auto 7.8 % (2-11); Neutrophils Absolute Auto 10.1 x10*3/uL (2.0-8.3); Neutrophils Percent Auto 78.2 % (45-73); Platelet Count 250 X10*3/uL (160-400); Red Blood Count 4.22 X10*6/uL (4.20-5.50); Red Cell Distribution Width 13.2 % (11.0-16.0)
[2022-06-04] MEDS: 0.9 % Sodium Chloride 1,000 ML 999 ML IV (01:31)
[2022-06-04] MEDS: Famotidine/PF 20 MG/2 ML VIAL IVPUSH (01:31)
[2022-06-04] MEDS: ondansetron HCL 4 MG/2 ML VIAL IVPUSH (01:31)
[2022-06-04 01:47] LABS: Alanine Aminotransferase 13 U/L (0-31); Albumin Level 3.4 g/dL (3.5-5.0); Alkaline Phosphatase 76 U/L (39-117); Anion Gap 15 (12-20); Aspartate Amino Transferase 10 U/L (5-31); Bilirubin Total 0.2 mg/dL (0.0-1.0); Blood Urea Nitrogen 8 mg/dL (9-16); Calcium 9.2 mg/dL (8.4-10.2); Carbon Dioxide 20 mmol/L (22-29); Chloride 107 mmol/L (96-108); Estimated Glomerular Filt Rate > 60; Glucose Random 90 mg/dL (60-115); Lipase 31 U/L (8-78); Potassium 3.7 mmol/L (3.3-5.1); Sodium 138 mmol/L (135-145); Total Protein 6.5 g/dL (6.5-8.0)
[2022-06-04 01:52] LABS: COVID-19 Test Negative (Negative); IDNOW Serial# 16C4AD1C
--- NOTE | 2022-06-04 02:12 | PC.NURSE ---
HR 160 obtained with doppler pt lyndsay procedure well. Pt denies nausea still reports pain to epigastric region.
[2022-06-04 03:00] VITALS: BP 103/61; PULSE 96; RESP 17; TEMP 36.7; O2SAT 96
--- NOTE | 2022-06-04 04:13 | MHC.EDTECH ---
pt ambulated to the BR without any problems a urine was obtained
[2022-06-04 04:29] LABS: Appearance Urine Clear; Color Urine Yellow; Glucose Urine UA Negative (Negative); Leukocyte Esterase Urine Small (1+) (Negative); Nitrite Urine Negative (Negative); PH 6.5 (5.0-9.0); UMIC TRIGGER UACC YES; Urine Blood Negative (Negative); Urine Ketones 80 mg/dL (Negative); Urine Protein Trace mg/dL (Neg-Trace)
[2022-06-04 04:34] LABS: Bacteria Urine 1+ (None Seen); Hyaline Casts Urine 0-2 /LPF (0-2); UACC Culture Trigger YES
[2022-06-04] MEDS: cefTRIAXone sodium 1 GM in 0.9 % Sodium Chloride 50 ML IV (05:15)
[2022-06-04] MEDS: Acetaminophen 325 MG TABLET 650 MG PO (05:15)
[2022-06-04 06:22] VITALS: BP 114/73; PULSE 118; RESP 18; TEMP 36.4; O2SAT 97
--- NOTE | 2022-06-04 06:24 | PC.NURSE ---
iv removed at time of discharge. pt ambulatory at time of discharge. discharge packet provided to pt. pt verbalized understanding of discharge plan
--- NOTE | 2022-06-04 08:19 | ECG_ITS ---
Test Reason : abd pain Blood Pressure : / mmHG Vent. Rate : 111 BPM Atrial Rate : 111 BPM P-R Int : 200 ms QRS Dur : 080 ms QT Int : 306 ms P-R-T Axes : 042 003 006 degrees QTc Int : 416 ms Sinus tachycardia Otherwise normal ECG When compared with ECG of 21-APR-2020 19:21, Vent. rate has increased BY 40 BPM Referred By: Humberto Jameson Electronically Signed By:ANGELO MALDONADO MD
== END 2022-06-04 06:25 | disposition home or self-care (01) ==
PROVIDERS: Emergency Provider Internal Medicine; PCP Internal Medicine
DX: O26.92 Pregnancy related conditions, unspecified, second trimester (principal); N39.0 Urinary tract infection, site not specified; Z3A.27 27 weeks gestation of pregnancy; Z20.828 Contact with and (suspected) exposure to other viral communicable diseases; Z20.822 Contact with and (suspected) exposure to COVID-19; Z79.899 Other long term (current) drug therapy
CPT/HCPCS: 76705; 76815; 80053; 81001; 83690; 85025; 87086; 87635; 93005; 96374; 96375; 99284; J0696; J2405

== ENCOUNTER 2022-11-16 08:46 | Outpatient (REF) | payer OTHER, SELFPAY ==
[2022-11-16 11:10] LABS: MANUAL DIFF FLAG NO
[2022-11-16 11:29] LABS: Basophils Percent Auto 0.6 % (0-2); Eosinophils Absolute Auto 0.1 X10*3/uL (0.0-0.4); Eosinophils Percent Auto 2.2 % (0-4); Hematocrit 39.1 % (37.0-47.0); Hemoglobin 12.1 g/dl (12.0-16.0); Imm Gran Abs Auto 0.01 X10*3/uL (0.00-0.03); Imm Gran Pct Auto 0.2 % (0.0-0.4); Lymphocytes Absolute Auto 1.9 X10*3/uL (1.2-4.9); Lymphocytes Percent Auto 41.2 % (20-40); Mean Corpuscular HGB Conc 30.9 g/dl (31.0-35.0); Mean Corpuscular Hemoglobin 27.1 pg (27.0-33.0); Mean Corpuscular Volume 87.7 fL (80.0-98.0); Mean Platelet Volume 10.4 fL (9.4-12.3); Monocytes Absolute Auto 0.3 X10*3/uL (0.1-1.2); Monocytes Percent Auto 7.3 % (2-11); Neutrophils Absolute Auto 2.3 x10*3/uL (2.0-8.3); Neutrophils Percent Auto 48.5 % (45-73); Platelet Count 301 X10*3/uL (160-400); Red Blood Count 4.46 X10*6/uL (4.20-5.50); Red Cell Distribution Width 15.9 % (11.0-16.0); White Blood Count 4.6 X10*3/uL (4.8-10.8)
[2022-11-16 11:56] LABS: Anion Gap 9 (12-20); Blood Urea Nitrogen 11 mg/dL (9-16); Calcium 10.1 mg/dL (8.4-10.2); Carbon Dioxide 26 mmol/L (22-29); Chloride 107 mmol/L (96-108); Cholesterol 200 mg/dL; Estimated Glomerular Filt Rate > 60; Glucose Fasting 86 mg/dL (60-99); HDL Cholesterol 39 mg/dL; Iron 62 mcg/dL (30-160); LDL Cholesterol Calculated 136 mg/dl; Percent Iron Saturation 18 % (15-50); Sodium 138 mmol/L (135-145); TSH reflex Free T4 1.15 uIU/mL (0.32-4.0); Total Iron Binding Capacity 340 mcg/dL (228-428); Triglycerides 129 mg/dL; Unsaturated Iron Binding 278 ug/dL; Vitamin D 25-OH Total 38.2 ng/mL (>30)
[2022-11-16 12:01] LABS: Folate 14.8 ng/mL (> or = 4.0); Vitamin B12 388 pg/mL (200-900)
== END 2022-11-16 08:47 | disposition home or self-care (01) ==
LOC: HO.HMGCLDS 08:46
PROVIDERS: PCP Internal Medicine; Visit Provider Internal Medicine
DX: Z00.01 Encounter for general adult medical examination with abnormal findings (principal); R42 Dizziness and giddiness; R53.83 Other fatigue
CPT/HCPCS: 36415; 80048; 80061; 82306; 82607; 82746; 83540; 84443; 85025

== ENCOUNTER 2022-11-29 15:04 | Outpatient (AMB) | payer OTHER, SELFPAY ==
--- NOTE | 2022-11-29 15:10 | MHC.OFFVIS ---
Intake Vital Signs 11/29/22 15:15 Height 5 ft 5 in Weight 189 lb BMI 31.4 BP 117/59 L Blood Pressure Location Rt brachial Position Sitting Pulse 82 Intake Visit Reasons: mass of scalp Intake Note: This patient presents for an assessment for mass of the scalp. Patient c/o; left side, denies pain, Hx of headaches and dizziness does not think is related to scalp mass. Snuff Maker Required: No Accompanied by: Self / Same As Patient Allergies metronidazole [METRONIDAZOLE] Allergy (Mild, Verified 11/29/22 15:16) HIVES Medication List - Last Reconciled 11/29/22 by Jus Morris MD PNV,calcium 72-iron,carb-folic 29 mg iron- 1 mg 1 tab PO DAILY HPI mass of scalp HPI Details [age] year old female referred for scalp mass. She says that she has noticed this for than 10 years. She feels that this has been increasing in size. She says that this causes some discomfort and she wants this removed. [facility] Medical History Anxiety Depression Dermatitis Eye strain, bilateral Generalized anxiety disorder Insomnia Intermittent asthma without complication Irregular menstrual bleeding Lesion of skin of scalp Mass of scalp Nasal pain Nose congestion Paresthesia of bilateral legs Paresthesias Recurrent headache Surgical History History of appendectomy No pertinent past surgical history Family History Father Asthma Hx of diabetes mellitus Substance use disorder Mental health disorder Mother Asthma Hypothyroidism Arthritis Mental health disorder Brother Depression Substance use disorder Mental health disorder Maternal Grandmother Mental health disorder Brother Mental health disorder Brother Mental health disorder Brother Mental health disorder Social History Household Members: Family and Children Both parents involved: Yes Housing: Apartment Alcohol intake: never Patient Tobacco Use Status: Never used Tobacco e-Cigarette/Vaping Use: Never Used Sexual orientation: Straight/Heterosexual Gender identity: Female Cognitive needs: No Hearing needs: No Vision needs: Yes Female Reproductive History Menstrual Age of Menarche: 12 Review of Systems Const Denies chills and Denies fever(s) Card Denies chest pain, Denies dyspnea and Denies dyspnea on exertion Resp Denies cough, Denies dyspnea and Denies dyspnea on exertion GI Denies hematochezia and Denies change in bowel habits Denies hematuria Musc Denies back pain and Denies limited range of motion Neuro Denies focal weakness and Denies convulsions Psych Denies depression and Denies mood swings Physical Exam Vital Signs: Last Vital Signs Pulse 82 11/29/22 15:15 BP 117/59 L 11/29/22 15:15 BMI result Body Mass Index 31.4 Const General: comfortable and no acute distress Orientation/consciousness: patient oriented x3 HEENT Other: Scalp lesion, soft, fleshy looking, about 1 cm in diameter on the left frontal area Neck Neck: Yes no lymphadenopathy Resp Auscultation: clear to auscultation bilaterally Cardio Rhythm: regular rhythm GI Palpation (GI): Soft to palpation, nontender and no guarding Neuro General: patient oriented x3 Assessment & Plan Assessment & Plan (1) Mass of scalp: Code(s): R22.0 - Localized swelling, mass and lump, head Plan: She has a scalp mass as described above. 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 I explained to her the technique of excision. I reviewed the risks including but not limited to bleeding and infections, as well as the benefits and alternatives. She wants to proceed. This will be done on her next visit in the office. Coding Level of Care Code New Pt Level 3 (83752) Diagnoses Mass of scalp R22.0
[2022-11-29 15:15] VITALS: BP 117/59; PULSE 82; BMI 31.4
== END 2022-11-29 15:29 | disposition home or self-care (01) ==
PROVIDERS: PCP Internal Medicine; Visit Provider Surgery
DX: R22.0 Localized swelling, mass and lump, head (principal)
CPT/HCPCS: 99203

== ENCOUNTER → 2022-11-29 15:04 | Outpatient (BNVA) | payer OTHER, SELFPAY | PROVIDERS: PCP Internal Medicine; Visit Provider Surgery | DX: R22.0 Localized swelling, mass and lump, head (principal) | CPT/HCPCS: 99202 ==

== ENCOUNTER 2022-12-13 12:50 | Outpatient (AMB) | payer OTHER, SELFPAY ==
[2022-12-13 12:55] VITALS: BP 116/66; PULSE 77; BMI 31.4
--- NOTE | 2022-12-13 12:55 | MHC.OFFVIS ---
Intake Vital Signs 12/13/22 12:55 Height 5 ft 5 in Weight 189 lb BMI 31.4 BP 116/66 Blood Pressure Location Rt brachial Position Sitting Pulse 77 Intake Visit Reasons: Exc lesion of scalp Intake Note: This patient presents for in office procedure for excision of lesion of scalp. Patient c/o; no changes. Professor Of Medicine Required: No Accompanied by: Self / Same As Patient Allergies metronidazole [METRONIDAZOLE] Allergy (Mild, Verified 12/13/22 12:56) HIVES HPI Exc lesion of scalp HPI Details She is here for an excision of a skin lesion from the scalp. [facility] Medical History (Updated 12/13/22 @ 12:56 by BREE Recinos) Anxiety Depression Dermatitis Eye strain, bilateral Generalized anxiety disorder Insomnia Intermittent asthma without complication Irregular menstrual bleeding Lesion of skin of scalp Mass of scalp Nasal pain Nose congestion Paresthesia of bilateral legs Paresthesias Recurrent headache Surgical History (Updated 12/13/22 @ 13:19 by BREE Recinos) History of appendectomy No pertinent past surgical history Family History Father Asthma Hx of diabetes mellitus Substance use disorder Mental health disorder Mother Asthma Hypothyroidism Arthritis Mental health disorder Brother Depression Substance use disorder Mental health disorder Maternal Grandmother Mental health disorder Brother Mental health disorder Brother Mental health disorder Brother Mental health disorder Social History Household Members: Family and Children Both parents involved: Yes Housing: Apartment Alcohol intake: never Patient Tobacco Use Status: Never used Tobacco e-Cigarette/Vaping Use: Never Used Sexual orientation: Straight/Heterosexual Gender identity: Female Cognitive needs: No Hearing needs: No Vision needs: Yes Female Reproductive History Menstrual Age of Menarche: 12 Office Procedures Excision Details: She was in reclining position. The area of the mass on the scalp was prepped and draped. Lidocaine 1% was used for local anesthesia. This was an elevated irregular soft fleshy mass about 1 cm in diameter with a narrower base. I made an incision around this lesion using blade 15. This incision was carried down through the full-thickness of the skin and subcutaneous fat until the lesion was completely excised. This appeared to be fibromatous. This was sent as specimen. I closed the incision with full-thickness nylon 3-0 interrupted sutures. The procedure was then completed. She tolerated procedure well. There were no immediate complications. Estimated blood loss about 5 cc. She was given wound care instructions. [id number] scalp/neck/hands/feet/genitalia 0.6cm-1cm Procedure code (CPT) selection complete Assessment & Plan Assessment & Plan (1) Mass of scalp: Code(s): R22.0 - Localized swelling, mass and lump, head Plan: She was given wound care instructions. She will be seen in the office for follow-up for removal of sutures. Coding Level of Care Code Procedure Only Diagnoses Mass of scalp R22.0 CPT Codes Scalp/Neck/Hands/Feet/Genetalia - CPT: 39104-[id number] scalp/neck/hands/feet/genitalia 0.6cm-1cm ([id number])
== END 2022-12-13 13:32 | disposition home or self-care (01) ==
PROVIDERS: PCP Internal Medicine; Visit Provider Surgery
DX: I78.1 Nevus, non-neoplastic (principal); R22.0 Localized swelling, mass and lump, head
CPT/HCPCS: 11421

== ENCOUNTER 2022-12-13 13:20 | Outpatient (REF) | payer OTHER, SELFPAY | END 2022-12-13 13:21 | disposition home or self-care (01) | LOC: HO.LNP 13:20 | PROVIDERS: Visit Provider Surgery | DX: R22.0 Localized swelling, mass and lump, head (principal) | CPT/HCPCS: 11421; 88304; 88305 ==

== ENCOUNTER 2022-12-21 14:07 | Outpatient (AMB) | payer OTHER, SELFPAY ==
[2022-12-21 14:15] VITALS: BP 111/68; PULSE 77; BMI 31.4
--- NOTE | 2022-12-21 14:15 | MHC.OFFVIS ---
Intake Vital Signs 12/21/22 14:15 Height 5 ft 5 in Weight 189 lb 0.001 oz BMI 31.4 BP 111/68 Blood Pressure Location Lt brachial Position Sitting Pulse 77 Intake Visit Reasons: Follow Up exc scalp lesion Intake Note: This patient presents for a post-op assessment status post excision of scalp lesion. Patient denies complaints at this time. Head Orthopedic Team Physician Required: No Accompanied by: Self / Same As Patient Allergies metronidazole [METRONIDAZOLE] Allergy (Mild, Verified 12/21/22 14:16) HIVES HPI Follow Up exc scalp lesion HPI Details She underwent excision of a scalp lesion under local anesthesia last 12/14/2022. She tolerated procedure well. She currently denies significant complaints. [facility] Medical History Anxiety Depression Dermatitis Eye strain, bilateral Generalized anxiety disorder Insomnia Intermittent asthma without complication Irregular menstrual bleeding Lesion of skin of scalp Mass of scalp Nasal pain Nose congestion Paresthesia of bilateral legs Paresthesias Recurrent headache Surgical History History of appendectomy History of surgical removal of lesion No pertinent past surgical history Family History Father Asthma Hx of diabetes mellitus Substance use disorder Mental health disorder Mother Asthma Hypothyroidism Arthritis Mental health disorder Brother Depression Substance use disorder Mental health disorder Maternal Grandmother Mental health disorder Brother Mental health disorder Brother Mental health disorder Brother Mental health disorder Social History Household Members: Family and Children Both parents involved: Yes Housing: Apartment Alcohol intake: never Patient Tobacco Use Status: Never used Tobacco e-Cigarette/Vaping Use: Never Used Sexual orientation: Straight/Heterosexual Gender identity: Female Cognitive needs: No Hearing needs: No Vision needs: Yes Female Reproductive History Menstrual Age of Menarche: 12 Review of Systems Const Denies chills and Denies fever(s) Physical Exam Vital Signs: Last Vital Signs Pulse 77 12/21/22 14:15 BP 111/68 12/21/22 14:15 BMI result Body Mass Index 31.4 Const General: comfortable and no acute distress HEENT Other: Excision site on the scalp on the frontal area is well healed, not infected, sutures intact Resp Effort & Inspection: normal respiratory effort Assessment & Plan Assessment & Plan (1) Mass of scalp: Code(s): R22.0 - Localized swelling, mass and lump, head Plan: Status post excision. The incision is well healed. I removed her sutures. Her path report shows a dermal nevus. She can follow up on a p.r.n. basis. Coding Level of Care Code Global (08958) Diagnoses Mass of scalp R22.0
== END 2022-12-21 14:26 | disposition home or self-care (01) ==
PROVIDERS: PCP Internal Medicine; Visit Provider Surgery
DX: R22.0 Localized swelling, mass and lump, head (principal)
CPT/HCPCS: 99024

== ENCOUNTER → 2022-12-21 14:07 | Outpatient (BNVA) | payer OTHER, SELFPAY | PROVIDERS: PCP Internal Medicine; Visit Provider Surgery ==

== ENCOUNTER 2024-07-10 15:47 | Outpatient (REF) | payer OTHER, SELFPAY ==
--- OUTSIDE RECORDS SUMMARY | 2024-07-10 16:41 | XMS_ITS | Data Portability ---
Author Organization [facility], [facility] ([facility]) Address [address], [address] [place] [address] Assessment No assessment recorded. Plan of Treatment Reminders Order Date Submit Date Provider Last Modified By Organization Details Last Modified Time Details Appointments None record ed. Lab None record ed. Referral None record ed. Procedures None record ed. Surgeries None record ed. Imaging None record ed. Medication Orders None record ed. Patient TargetsNo targets recorded. Patient InstructionsNo instructions recorded. Reason for Referral None Reported. Medical Equipment None Reported. Medications Name Sig Start Date Stop Date Status Note LastModified by Organization Details LastModified Time monistat 7 combination pack 100 & 2 mg-% (9gm) kit active Not Available Not Availab le Not Available metronidazole 0.75 % (37.5 mg/5 gram) vaginal gel active Not Available Not Available Not Available ciprofloxacin 500 mg tablet active Not Available Not Availabl e Not Available ibuprofen 600 mg tablet active Not Available Not Available No t Available TriNessa (28) 0.18 mg(7)/0.215 mg(7)/0.25 mg(7)-35 mcg tablet active Not Available Not Available Not Available 28 mg iron-800 mcg tablet active Not Available Not Available Not Available Vitals None Recorded Social History None recorded. Functional Status None recorded. Mental Status None recorded. Family History Nothing Reported. Medical History No medical history recorded. Gynecological HistoryNo gynecological history recorded. Obstetrics History GPAL:G 0 P 0 0 0 0 Past Encounters Encounter ID Performer Location Encounter Start Date Encounter Closed Date Diagnosis/Indication Diagnosis SNOMED-CT Code Diagnosis ICD10 Code Diagnosis Note [id number] [address] Ortiz [address] [address] Health Concerns Section Related Observation LastModified by Organization Brii andrade LastModified Time None Recorded Concern Status LastModified by Organization Details LastModified Time None Recorded Advance Directives Directive None Recorded Payers Encounter Date Sequence Insurance Name Policy Number Policy Caicedo Covered Member ID Caicedo Member ID Guarantor Name 07/17/2016 1 [facility] (MEDICAID HMO) [id number] Dayanara Fang [id number] Dayanara Fang OBGyn Episode No OBEpisode recorded.
--- OUTSIDE RECORDS SUMMARY | 2024-07-10 16:41 | XMS_ITS | Clinical Summary ---
Author Organization [facility] ity Address [address] [place] [address] Care Team Providers Care Insurance Sales Supervisor Name Role Phone Pura Pinto MD Primary Care Provider [phone] Surgical History Surgery Date Site/Laterality Comments APPENDECTOMY PROCEDURE: [place] APPENDECTOMY Medical History Medical History Date Comments Anxiety state DX:Anxiety state Obesity DX:Obesity PCOS (polycystic ovarian syndrome) DX:PCOS (polycystic ovarian syndrome) Family History Medical History Relation Name Comments Arthritis Maternal Grandmother Hypertension Maternal Grandmother Relation Name Status Comments Maternal Grandmother Social History Tobacco Use Types Packs/Day Years Used Date Smoking Tobacco: Never Smokeless Tobacco: Never Alcohol Use Standard Drinks/Week Comments No 0 (1 standard drink = 0.6 oz pur e alcohol) Comments Unknown Sex and Gender Information Value Date Recorded Sex Assigned at Not on file Legal Sex Female 4:38 AM EST Gender Identity Not on file Sexual Orientation Not on file Obstetrics History Plan of Treatment Health Maintenance Due Date Last Done Comments Hepatitis B Vaccines (1 of 3 - 19+ 3-dose series) 2015 Cervical Cancer Screening: P ap Smear 2017 COVID-19 Vaccine ( - 2023-2 5 season) 2024 Influenza Vaccine (#1) 2024 DTaP,Tdap,and Td Vaccines (2 - Td or Tdap) 12/08/2026 12/08/2016 HIB Vaccines Aged Out No longer eligi ble based on patient's age to complete this topic HPV Vaccines Aged Out No longer eligi ble based on patient's age to complete this topic Hepatitis A Vaccines Aged Out No long er eligible based on patient's age to complete this topic IPV Vaccines Aged Out No longer eligi ble based on patient's age to complete this topic MMR Vaccines Aged Out No longer eligi ble based on patient's age to complete this topic Meningococcal ACWY Vaccine Aged Out N o longer eligible based on patient's age to complete this topic Meningococcal B Vacine Aged Out No lo nger eligible based on patient's age to complete this topic Pneumococcal Vaccine: Pediat rics (0 to 5 Years) and At-Risk Patients (6 to 64 Years) Aged Out No longer eligi ble based on patient's age to complete this topic RSV Immunization Patients Un ramona 20 months Aged Out No longer eligible b ased on patient's age to complete this topic Varicella Vaccines Aged Out No longer eligible based on patient's age to complete this topic Care Teams Insurance Sales Supervisor Relationship Specialty Start Date End Date Pura Pinto MD [address] [place] [address] Dr [address] [facility] [place] [address] PCP - General Internal Medicine 03/21/21
--- OUTSIDE RECORDS SUMMARY | 2024-07-10 16:41 | XMS_ITS | Encounter Summary ---
Author Organization [employer] Address [address] [facility] [address] [place] [address] Care Team Providers Care Mining Technician Name Role Phone Unavailable Primary Care Provider Unavailabl e Encounter Details Date Type Department Care Team (Latest Contact Info) Description 02/02/2022 Abstract [facility] CONVERSIONS Dental, Provider, DDS Social History Tobacco Use Types Packs/Day Years Used Date Smoking Tobacco: Never Assessed Comments Unknown Sex and Gender Information Value Date Recorded Sex Assigned at Female 03/20/2022 10:33 AM EDT Legal Sex Female 10:33 AM EDT Gender Identity Female 03/20/2022 10:33 AM EDT Sexual Orientation Straight 03/20/2022 10 :33 AM EDT documented as of this encounter Plan of Treatment Not on file documented as of this encounter Visit Diagnoses Not on filedocumented in this encounter
--- OUTSIDE RECORDS SUMMARY | 2024-07-10 16:41 | XMS_ITS | Encounter Summary ---
Author Organization [facility] Address [address] [place] [address] Phone Care Team Providers Care Movie Theater Manager Name Role Phone Lisa John NP Primary Care Provider Gregory gallagher Encounter Details Date Type Department Care Team (Late st Contact Info) Description 03/02/2015 Documentation [facility] Family Medicine [facility] [place] [place] [address] Family Medicine, Physician [facility] [place], [place] [id number] Social History Tobacco Use Types Packs/Day Years Used Date Smoking Tobacco: Some Days Comments:Current some day sm oker Comments Unknown Sex and Gender Information Value Date Recorded Sex Assigned at Not on file Legal Sex Female 4:55 PM EDT Gender Identity Not on file Sexual Orientation Not on file documented as of this encounter Plan of Treatment Not on file documented as of this encounter Visit Diagnoses Not on filedocumented in this encounter Care Teams Movie Theater Manager Relationship Specialty Start Date End Date Lisa John NP PCP - General 12/29/16 10/25/22 documented as of this encounter
--- OUTSIDE RECORDS SUMMARY | 2024-07-10 16:41 | XMS_ITS | Clinical Summary ---
Author Organization [employer] Address [address] [facility] [address] [place] [address] Care Team Providers Care Cleaning Manager Name Role Phone Unavailable Primary Care Provider Unavailabl e Social History Tobacco Use Types Packs/Day Years Used Date Smoking Tobacco: Never Assessed Comments Unknown Sex and Gender Information Value Date Recorded Sex Assigned at Female 03/20/2022 10:33 AM EDT Legal Sex Female 10:33 AM EDT Gender Identity Female 03/20/2022 10:33 AM EDT Sexual Orientation Straight 03/20/2022 10 :33 AM EDT Plan of Treatment Health Maintenance Due Date Last Done Comments Depression Screening 1996 HIV Screening 1996 SDOH Screening 1996 Alcohol/Substance Use Screening 2008 Tobacco Screening 2008 Family Planning (PISQ) 2011 Hepatitis C Screening 2014 Hepatitis A Vaccines (2 of 2 - 2-dose series) 01/12/2015 07/15/2014 Pap Smear 2017 Dental X-Ray: Full Mouth 11/02/2020 11/01/2017, 09/19 Dental X-Ray: Bitewings 06/02/2021 06/01/2020, 10/09 Dental Oral Exam 08/03/2022 02/02/2022, 04/2021, 10/09/2017 Dental Prophylaxis 08/03/2022 02/02/2022, 10/10/2017 COVID-19 Vaccine ( season) 2024 Influenza Vaccine (#1) 2024 3, 05/19/2021, 07/15/2014, Additional history exists DTaP/Tdap/Td Vaccines (10 - Td or Tdap) 06/29/2032 06/29/2022, 04/11/2021, 12/08/2016, Additional history exists Zoster Vaccines (1 of 2) 2046 RSV Patients and Patients Aged 60 years or older (1 - 1-dose 75+ series) 2071 Hepatitis B Vaccines Completed 1996, 1996, 1996 HIB Vaccines Completed 06/18/1998, 11/18, 1996, Additional history exists IPV Vaccines Completed 10/04/2000, 11/18, 1996, Additional history exists Meningococcal Vaccine Aged Out 04/03/2008, 008 No longer eligible based on patient's age to complete this topic HPV Vaccines Completed 03/12/2012, 12/2010, 02/24/2011 Pneumococcal Vaccine: Pediatrics (0 to 5 Years) and At-Risk Patients (6 to 49) Years) Aged Out No longer eligible based on patient's age to complete this topic RSV under 20 months Aged Out No longe r eligible based on patient's age to complete this topic Rotavirus Vaccines Aged Out No longer eligible based on patient's age to complete this topic Procedures Procedure Name Priority Date/Time Associated Diagnosis Comments PROPHYLAXIS - ADULT Routine 02/02/2022 1 2:00 AM EDT PERIODIC ORAL EVALUATION - ESTABLISHED PATIENT Routine 02/02/2022 12:00 AM EDT BITEWINGS - 4 RADIOGRAPHIC IMAGES Routine 06/01/2020 12:00 AM EST PANORAMIC RADIOGRAPHIC IMAGE Routine 11/01/2017 12:00 AM EDT from Last 3 Months or Most Recently Relevant to Health Maintenance Insurance [facility] MEDICAID STAND ADULT
--- OUTSIDE RECORDS SUMMARY | 2024-07-10 16:41 | XMS_ITS | Clinical Summary ---
Author Organization [facility] Address [address] [place] [phone] Phone Care Team Providers Care Tugboat Pilot Name Role Phone Unavailable Primary Care Provider Unavailabl e Immunizations Immunization Administration Dates Next Due DTaP 5 10/04/2000, 9,1996, 997,1996 H1N1 04/20/2009 HPV, Quadrivalent 03/12/2012,04/27/2011,02/25/20 11 Hep A, ped/adol 07/15/2014 Hep B, ped/adol 1996,1996,1996 Hib (PRP-T) 06/18/1998, 7,1996, 997 Influenza Split 03/17/2013,03/12/2012,02/24/2011 Influenza, injectable, quadrivalent 07/15/2014 Influenza, injectable, trivalent 04/03/2008 MMR 10/04/2000,06/18/1998 Meningococcal Conj (Menactra) MCV4P 04/03/2008 OPV 10/04/2000, 7,1996, 997 Tdap 04/03/2008 Varicella 04/03/2008,08/27/1998 Family History Relation Name Status Comments Brother 1 Alive Brother: Alive and well, Alive and well, Alive and well, Alive and well Brother 2 Alive Brother: Alive and well, Alive and well, Alive and well, Alive and well Brother 3 Alive Brother: Alive and well, Alive and well, Alive and well, Alive and well Brother 4 Alive Brother: Alive and well, Alive and well, Alive and well, Alive and well Father Father: Asthma Mother Alive Mother: Alive a nd well Other No family histo ry of *Heart Disease, Family history of Strabismus/amblyopia, No family history of *CVA/Stroke, Family history of Asthma, Family history of ADD/ADHD, No family history of *Sudden /[place] under 55, Family history of Migraines, No family history of *Thrombophilia Sister Alive Sister: Alive a nd well Social History Tobacco Use Types Packs/Day Years Used Date Smoking Tobacco: Some Days Comments:Current some day sm oker Comments Unknown Sex and Gender Information Value Date Recorded Sex Assigned at Not on file Legal Sex Female 4:55 PM EDT Gender Identity Not on file Sexual Orientation Not on file Last Filed Vital Signs Vital Sign Reading Time Taken Comments Blood Pressure 111/71 07/15/2014 12:00 AM EST Pulse 92 07/15/2014 12:00 AM EST Temperature 36.4 ??C (97.6 ??F) 05/29/2014 12:[address] Respiratory Rate - - Oxygen Saturation - - Inhaled Oxygen Concentration - - Weight 83 kg (183 lb) 07/15/2014 12:00 AM EST Height 162.8 cm (5' 4.1 ) 07/15/2014 12:00 AM ES T Body Mass Index 31.32 07/15/2014 12:00 AM EST Plan of Treatment Health Maintenance Due Date Last Done Comments Hepatitis A Vaccines (2 of 2 - 2-dose series) 01/12/2015 07/15/2014 Influenza Vaccines (#1) 2023 06/09/19 23, 05/19/2021, 07/15/2014, Additional history exists COVID-19 Vaccine ( season) 2024 DTaP,Tdap,and Td Vaccines (10 - Td or Tdap) 06/29/2032 06/29/2022, 04/11/2021, 12/08/2016, Additional history exists Hepatitis B Vaccines Completed 1996, 1996, 1996 HIB Vaccines Completed 06/18/1998, 11/18, 1996, Additional history exists IPV Vaccines Completed 10/04/2000, 11/18, 1996, Additional history exists MMR Vaccines Completed 10/04/2000, 06/18/1998 Meningococcal Vaccine Aged Out 04/03/2008 No rajiv jethro eligible based on patient's age to complete this topic Varicella Vaccines Completed 04/03/2008, 08/27/1998 HPV Vaccines Completed 03/12/2012, 12/2010, 02/24/2011 Men B Vaccine Aged Out No longer elig ible based on patient's age to complete this topic Pneumococcal Vaccine Aged Out No long er eligible based on patient's age to complete this topic Procedures * Due to [facility] law, this organization might not be sharing sensitive test results. Procedure Name Priority Date/Time Associated Diagnosis Comments CHLAMYDIA AND GONORRHEA, AMPLIFIED Routine 03/13/2012 3:59 PM EDT from Last 3 Months or Most Recently Relevant to Health Maintenance Results * Due to [place] [employer] law, this organization might not be sharing sensitive test results. * Chlamydia and Gonorrhoea, Amplified (03/13/2012 3:59 PM EDT) [facility] URINE AMP PROBE [facility] Comment: NO NEISSERIA GONORRHOEAE RNA DETECTED IN THIS PATIENT'S SAMPLE. ? (REFERENCE RANGE/NORMAL VALUE: NOT DETECTED) ? NOTE: THIS TEST USES SPARE HAND CARDING MEDIATED AMPLIFICATION METHOD TO DETECT rRNA FROM C.TRACHOMATIS AND N.GONORRHOEAE. A NEGATIVE RESULT DOES NOT PRECLUDE INFECTION WITH C.TRACHOMATIS OR N.GONORRHOEAE BECAUSE RESULTS ARE DEPENDENT ON ADEQUATE SPECIMEN COLLECTION, ABSENCE OF INHIBITORS, AND SUFFICIENT rRNA TO BE DETECTED. THE APTIMA COMBO2 ASSAY IS NOT INTENDED FOR THE EVALUATION OF SUSPECTED SEXUAL ABUSE OR FOR OTHER MEDICO LEGAL INDICATIONS. IS TRUE FOR ALL NON CULTURE METHODS, A POSITIVE SPECIMEN OBTAINED FROM A PATIENT AFTER THERAPEUTIC TREATMENT CANNOT BE INTERPRETED INDICATING THE PRESENCE OF VIABLE C.TRACHOMATIS OR N.GONORRHOEAE. THERAPEUTIC FAILURE OR SUCCESS CANNOT BE DETERMINED WITH THE APTIMA COMBO2 ASSAY SINCE NUCLEIC ACID MAY PERSIST FOLLOWING APPROPRIATE ANTIMICROBIAL THERAPY. A NEGATIVE URINE RESULT FOR A PATIENT WHO IS CLINICALLY SUSPECTED OF HAVING A CHLAMYDIAL OR GONOCOCCAL INFECTION DOES NOT RULE OUT THE PRESENCE OF C.TRACHOMATIS OR N.GONORRHOEAE IN THE UROGENITAL TRACT. TESTING OF AN ENDOCERVICAL(FEMALE) OR URETHRAL(MALE) SPECIMEN IS RECOMMENDED IF THERE IS HIGH CLINICAL SUSPICION OF INFECTION. PRESERVCYT LIQUID PAP AND URINE SAMPLING ARE NOT DESIGNED TO REPLACE CERVICAL EXAMS AND ENDOCERVICAL SAMPLES FOR DIAGNOSIS OF FEMALE UROGENITAL INFECTIONS. PATIENTS MAY HAVE CERVICITIS, URETHRITIS, URINARY TRACT INFECTIONS, OR VAGINAL INFECTIONS DUE TO OTHER CAUSES OR CONCURRENT INFECTIONS WITH OTHER AGENTS. URINE CHLAMYDIA AMP PROBE NEGATIVE [facility] Comment: NO CHLAMYDIA TRACHOMATIS RNA DETECTED IN THIS PATIENT'S SAMPLE. ? (REFERENCE RANGE/NORMAL VALUE: NOT DETECTED) 03/13/2012 3:59 PM EDT Narrative [facility] - 03/13/2012 3:59 PM EDT URINE CHLAMYDIA GC AMP PROBE us Lisa John NP LAB MICROBIOLOGY - GENERAL OR DERABLES Final Result [facility] [address] [place] [address], [place] from Last 3 Months or Most Recently Relevant to Health Maintenance
--- OUTSIDE RECORDS SUMMARY | 2024-07-10 16:41 | XMS_ITS | Encounter Summary ---
Author Organization [facility] Address [address] [place] [address] Phone Care Team Providers Care Sanding Machine Tender Name Role Phone Lisa John NP Primary Care Provider Gregory gallagher Encounter Details Date Type Department Care Team (Late st Contact Info) Description 01/04/2017 Conversion Encounter [facility] - [address] [address] Social History Tobacco Use Types Packs/Day Years [...] on filedocumented in this encounter Care Teams Sanding Machine Tender Relationship Specialty Start Date End Date Lisa John NP PCP - General 12/29/16 10/25/22 documented as of this encounter
[2024-07-13 15:13] LABS: TS Negative Control Passed; TS Panel A 0; TS Panel B 0; TS Positive Control Passed; TSpotTB Negative (Negative)
== END 2024-07-10 15:48 | disposition home or self-care (01) ==
LOC: HO.LAB 15:47
PROVIDERS: PCP Internal Medicine; Visit Provider Internal Medicine
DX: Z11.1 Encounter for screening for respiratory tuberculosis (principal)
CPT/HCPCS: 36415; 86481

== ENCOUNTER 2024-08-26 09:58 | Outpatient (REF) | payer OTHER, SELFPAY ==
[2024-08-26 13:08] LABS: MANUAL DIFF FLAG NO
--- OUTSIDE RECORDS SUMMARY | 2024-08-26 13:13 | XMS_ITS | Clinical Summary ---
Author Organization [facility] ity Address [address] [place] [address] Care Team Providers Care Manager Logistic Name Role Phone Pura Pinto MD Primary Care Provider [phone] Surgical History Surgery Date Site/Laterality Comments APPENDECTOMY PROCEDURE: [place] APPENDECTOMY Medical History Medical History Date Comments [...] age to complete this topic Care Teams Manager Logistic Relationship Specialty Start Date End Date Pura Pinto MD [address] [place] [address] Dr [address] [facility] [place] [address] PCP - General Internal Medicine 03/21/21
--- OUTSIDE RECORDS SUMMARY | 2024-08-26 13:13 | XMS_ITS | Clinical Summary ---
Author Organization [employer] Address [address] [facility] [address] [place] [address] Care Team Providers Care Risk Developer Name Role Phone Unavailable Primary Care Provider [...] Most Recently Relevant to Health Maintenance Insurance [facility] MEDICAID STAND ADULT
--- OUTSIDE RECORDS SUMMARY | 2024-08-26 13:13 | XMS_ITS | Encounter Summary ---
Author Organization [facility] Address [address] [place] [address] Phone Care Team Providers Care Stoner Out Name Role Phone Lisa John NP Primary Care Provider Gregory gallagher Encounter Details Date Type Department Care Team (Late st Contact Info) Description 03/02/[address] [facility] [place] Family Medicine [facility] [place] [address] Family Medicine, Physician [facility] [place] [address] Social History Tobacco Use Types Packs/Day Years [...] on filedocumented in this encounter Care Teams Stoner Out Relationship Specialty Start Date End Date Lisa John NP PCP - General 12/29/16 10/25/22 documented as of this encounter
--- OUTSIDE RECORDS SUMMARY | 2024-08-26 13:13 | XMS_ITS | Encounter Summary ---
Author Organization [employer] Address [address] [facility] [address] [place] [address] Care Team Providers Care Hand Collator Name Role Phone Unavailable Primary Care Provider [...]
--- OUTSIDE RECORDS SUMMARY | 2024-08-26 13:13 | XMS_ITS | Clinical Summary ---
Author Organization [facility] Address [address] [place] [address] Phone Care Team Providers Care Polysomnography Tech Name Role Phone Unavailable Primary Care Provider [...] of ADD/ADHD, No family history of *Sudden /[place] under 55, Family history of Migraines, No [...] complete this topic Procedures * Due to [facility] law, this organization might not be sharing sensitive test results. Procedure Name Priority Date/Time Associated Diagnosis Comments CHLAMYDIA AND GONORRHEA, AMPLIFIED Routine 03/13/2012 3:59 PM EDT from Last 3 Months or Most Recently Relevant to Health Maintenance Results * Due to [place] [employer] law, this organization might not be sharing sensitive test results. * Chlamydia and Gonorrhoea, Amplified (03/13/2012 3:59 PM EDT) [facility] URINE AMP PROBE [facility] Comment: NO NEISSERIA GONORRHOEAE RNA DETECTED IN THIS PATIENT'S SAMPLE. ? (REFERENCE RANGE/NORMAL VALUE: NOT DETECTED) ? NOTE: THIS TEST USES SALES FINANCIAL ANALYST MEDIATED AMPLIFICATION METHOD TO DETECT rRNA FROM [...] OTHER AGENTS. URINE CHLAMYDIA AMP PROBE NEGATIVE [facility] Comment: NO CHLAMYDIA TRACHOMATIS RNA DETECTED IN THIS PATIENT'S SAMPLE. ? (REFERENCE RANGE/NORMAL VALUE: NOT DETECTED) 03/13/2012 3:59 PM EDT Narrative [facility] - 03/13/2012 3:59 PM EDT URINE CHLAMYDIA GC AMP PROBE us Lisa John NP LAB MICROBIOLOGY - GENERAL OR DERABLES Final Result [facility] [address] [place] [address], [place] from Last 3 Months or Most Recently Relevant to Health Maintenance
--- OUTSIDE RECORDS SUMMARY | 2024-08-26 13:13 | XMS_ITS | Encounter Summary ---
Author Organization [facility] Address [address] [place] [address] Phone Care Team Providers Care Knife Blade Polisher Name Role Phone Lisa John NP Primary Care Provider Gregory gallagher Encounter Details Date Type Department Care Team (Late st Contact Info) Description 01/04/2017 Conversion Encounter [facility] - [address] [address] Social History Tobacco Use Types Packs/Day Years [...] on filedocumented in this encounter Care Teams Knife Blade Polisher Relationship Specialty Start Date End Date Lisa John NP PCP - General 12/29/16 10/25/22 documented as of this encounter
[2024-08-26 13:27] LABS: Basophils Percent Auto 0.4 % (0-2); Eosinophils Absolute Auto 0.4 X10*3/uL (0.0-0.4); Eosinophils Percent Auto 5.4 % (0-4); Hematocrit 41.4 % (37.0-47.0); Imm Gran Abs Auto 0.02 X10*3/uL (0.00-0.03); Imm Gran Pct Auto 0.3 % (0.0-0.4); Lymphocytes Absolute Auto 1.8 X10*3/uL (1.2-4.9); Lymphocytes Percent Auto 24.7 % (20-40); Mean Corpuscular HGB Conc 31.4 g/dl (31.0-35.0); Mean Corpuscular Hemoglobin 27.7 pg (27.0-33.0); Mean Corpuscular Volume 88.3 fL (80.0-98.0); Mean Platelet Volume 10.1 fL (9.4-12.3); Monocytes Absolute Auto 0.5 X10*3/uL (0.1-1.2); Monocytes Percent Auto 6.3 % (2-11); Neutrophils Absolute Auto 4.6 x10*3/uL (2.0-8.3); Neutrophils Percent Auto 62.9 % (45-73); Platelet Count 302 X10*3/uL (160-400); Red Blood Count 4.69 X10*6/uL (4.20-5.50); Red Cell Distribution Width 13.6 % (11.0-16.0); White Blood Count 7.3 X10*3/uL (4.8-10.8)
[2024-08-26 14:32] LABS: Alanine Aminotransferase 21 U/L (0-31); Anion Gap 10 (12-20); Aspartate Amino Transferase 19 U/L (5-31); Blood Urea Nitrogen 10 mg/dL (9-16); Calcium 10.2 mg/dL (8.4-10.2); Carbon Dioxide 26 mmol/L (22-29); Chloride 108 mmol/L (96-108); Cholesterol 211 mg/dL (<200); Estimated Glomerular Filt Rate > 60; Glucose Fasting 90 mg/dL (60-99); HDL Cholesterol 41 mg/dL (>40); Iron 68 mcg/dL (30-160); LDL Cholesterol Calculated 132 mg/dL (<100); Percent Iron Saturation 19 % (15-50); Potassium 4.3 mmol/L (3.3-5.1); Sodium 140 mmol/L (135-145); Total Iron Binding Capacity 349 mcg/dL (228-428); Triglycerides 193 mg/dL (<150); Unsaturated Iron Binding 281 ug/dL
[2024-08-26 14:35] LABS: Folate 9.6 ng/mL (> or = 4.0); Vitamin B12 333 pg/mL (200-900)
[2024-08-26 14:48] LABS: TSH reflex Free T4 1.49 uIU/mL (0.32-4.0); Vitamin D 25-OH Total 20.6 ng/mL (>30)
== END 2024-08-26 09:59 | disposition home or self-care (01) ==
LOC: HO.HMGCLDS 09:58
PROVIDERS: PCP Internal Medicine; Visit Provider Internal Medicine
DX: Z00.01 Encounter for general adult medical examination with abnormal findings (principal); B35.4 Tinea corporis; E66.9 Obesity, unspecified; Z71.89 Other specified counseling; Z13.220 Encounter for screening for lipoid disorders; Z13.1 Encounter for screening for diabetes mellitus; Z86.2 Personal history of diseases of the blood and blood-forming organs and certain disorders involving the immune mechanism
CPT/HCPCS: 36415; 80048; 80061; 82306; 82607; 82746; 83540; 84443; 84450; 84460; 85025; 96127; 99395

== ENCOUNTER 2024-08-26 09:58 | Outpatient (AMB) | payer OTHER, SELFPAY ==
--- NOTE | 2024-08-26 10:02 | A.OFFPC_ITS ---
Vital Signs 08/26/24 10:09 Height 5 ft 5 in Weight 213 lb BMI 35.4 BP 100/74 Blood Pressure Location Rt brachial Position Sitting Respiration 15 Pulse 83 Pulse Source Pulse Oximeter Temp 98.3 F Temp Source Oral Pulse Oximetry (%) 99 Oxygen Delivery Method Room Air Intake Visit Reasons: Annual PE/Overdue last seen 2022 Intake Note: Pt is here today for her PE: Last papsmear 02/22/23 Allergies metronidazole [METRONIDAZOLE] Allergy (Mild, Verified 08/26/24 10:25) HIVES Medication List - Last Reconciled 08/26/24 by Fartun Grady MD No Known Home Meds Tobacco use date assessed: 08/26/24 Dental Screening Dental Screen Date: 08/26/24 Did you have a dental visit in the last 12 months?: No Did you have a dental problem in the last 6 months where you did not have access to dental care?: No Was dental information given to patient?: Patient has dentist HPI Annual PE/Overdue last seen 2022 HPI Details 29-year-old lady with history of obesity , generalized anxiety disorder currently not on any medication, here today for physical exam. She is up-to-date with her cervical cancer screening and pelvic exam, done in 2022 with negative findings. She has been feeling well , but has a pruritic rash on her left lower leg which has been present now for the last 3 weeks. Patient initially states that it started out small and started spreading. [facility] Medical History History of anxiety disorder Surgical History Hx of tubal ligation History of surgical removal of lesion History of appendectomy No pertinent past surgical history Family History Father Asthma Hx of diabetes mellitus Substance use disorder Mental health disorder Mother Asthma Hypothyroidism Arthritis Mental health disorder Brother Depression Substance use disorder Mental health disorder Maternal Grandmother Mental health disorder Brother Mental health disorder Brother Mental health disorder Brother Mental health disorder Social History Household Members: Family and Children Both parents involved: Yes Housing: Apartment Alcohol intake: never Patient Tobacco Use Status: Never used Tobacco e-Cigarette/Vaping Use: Never Used service: No Current occupational status: unemployed Sexual orientation: Straight/Heterosexual Gender identity: Female Cognitive needs: No Hearing needs: No Vision needs: Yes Female Reproductive History Menstrual Age of Menarche: 12 control method: permanent sterilization Permanent Sterilization: BTL Date of last pap smear: 02/22/23 (Negative for intraepithelial lesion or maligna ncy, negative for HPV, done at [facility]) Questionnaire PHQ-9 Over the last 2 weeks, how often have you been bothered by any of the following problems? 1. Little interest or pleasure in doing things: not at all 2. Feeling down, depressed, or hopeless: not at all 3. Trouble falling or staying asleep, or sleeping too much: not at all 4. Feeling tired or having little energy: more than half the days 5. Poor appetite or overeating: not at all 6. Feeling bad about yourself - or that you are a failure or have let yourself or your family down: not at all 7. Trouble concentrating on things, such as reading the newspaper or watching television: not at all 8. Moving or speaking so slowly that other people could have noticed. Or the opposite - being so fidgety or restless that you have been moving around a lot more than usual: not at all 9. Thoughts that you would be better off or of hurting yourself in some way: not at all Total score: 2 Depression Screening Interpretation: Negative Depression Screening Done: Yes 25424 - PHQ-9 Billing: Yes Source: Developed by Drs. Gerald Coleman, Nargis Najera, Geovanni Juarez and colleagues, with an educational eduar from [employer]. Thrive Questionnaire Date Thrive assessed: 08/26/24 I am a: Patient What is your living situation today?: I have a steady place to live Within the past 12 months, did the food you bought not last and you didn't have the money to get more?: Often true Within the past 12 months, did you worry whether your food would run out before you got money to buy more?: Often true Do you have trouble paying for medicines?: No Do you have trouble getting transportation to medical appointments?: No Do you have trouble paying your heating and electricity bill?: No Do you have trouble taking care of your child, family member or friend?: No Do you have trouble with day-to-day activities such as bathing, preparing meals, shopping, managing finances, etc.?: No Are you currently unemployed and looking for a job?: Yes Are you interested in more education?: Yes Please select the resources that you would like help with: Food, Job search/training and Education THRIVE Score: 2 AUDIT C Alcohol Use Questionnaire (AUDIT-C) 1. How often do you have a drink containing alcohol?: Never Total Score: 0 MAECY-7 AMB Questionnaire MACEY-7 Date MACEY - 7 assessed: 08/26/24 Feeling nervous, anxious, or on edge: 0 = Not at all Not being able to stop or control worryin = Not at all Worrying too much about different things: 0 = Not at all Trouble relaxin = Not at all Being so restless that it is hard to sit still: 0 = Not at all Becoming easily annoyed or irritable: 0 = Not at all Feeling afraid as if something awful might happen: 0 = Not at all Total MACEY-7 score (0-4 normal; 5-9 mild; 10-14 moderate; 15-21 severe): 0 Source: Developed by Drs. Gerald Coleman, Nargis Najera, Geovanni Juarez and colleagues, with an educational eduar from [employer]. MACEY-7 Assessment Billing MACEY-7 Assessment Tool: MACEY-7 Assessment 24261 Review of Systems Const Denies daytime sleepiness, Denies difficulty sleeping, Reports fatigue, Reports headache(s) (During her.) and Reports weight gain Eyes Details: Goes to [facility] Reports blurry vision (Has myopia) and Reports requires corrective lenses (Only when driving) ENT Reports no additional complaints and Reports headache(s) (During her.) Card Denies chest pain, Denies syncope, Denies rapid heart rate, Denies leg edema, Denies lightheadedness and Denies palpitations Resp Reports no additional complaints GI Reports no additional complaints Details: Has irregular menstrual cycles, currently being seen at [facility], last Pap was 2022, with negative finding Musc Reports no additional complaints Skin/Breast Details: As per HPI Neuro Denies syncope and Reports headache(s) (During her.) Psych Reports no additional complaints Endo Reports fatigue, Denies polyphagia, Denies polydipsia, Denies polyuria and Denies palpitations Karlos/Lymph Reports no additional complaints Aller/Immun Reports no additional complaints Physical exam (Primary Care) Vital Signs: Last Vital Signs Temp 98.3 F 08/26/24 10:09 Pulse 83 08/26/24 10:09 Resp 15 08/26/24 10:09 BP 100/74 08/26/24 10:09 Pulse Ox 99 08/26/24 10:09 Oxygen Delivery Method Room Air 08/26/24 10:09 BMI result Body Mass Index 35.4 Tobacco/Smoking Status: Tobacco use Status Tobacco use date assessed 08/26/24 08/26/24 10:05 Patient Tobacco Use Status Never used Tobacco 08/26/24 10:02 e-Cigarette/Vaping Use Never Used 08/26/24 10:02 PHQ-9: PHQ-9 Score PHQ-9: Total score 2 08/26/24 10:55 Depression Screening Interpretation: Negative Thrive Assessment: Date of Thrive Assessment Date Thrive assessed 08/26/24 08/26/24 10:16 Advance Care Planning discussion: Completed/Scanned Date of discussion: 08/26/24 Who was present: Patient Forms completed: Health Care Proxy Time spent: 16-45 minutes Actual minutes spent: 3 Const General: cooperative, comfortable and no acute distress Nutritional Appearance: obese Orientation/consciousness: patient oriented x3 HENMT Head: Yes atraumatic General nose exam: No nasal discharge present and Abnormal external nose present (Tenderness over nasal bridge on palpation) Face and sinus: Yes sinuses nontender and Yes face symmetric Mouth: Normal oral and palatal mucosa present, oropharynx normal and moist mucous membranes Eyes General: appearance normal, both eyes and all related structures Neck Neck: Yes full ROM, Yes no lymphadenopathy, Yes no meningeal signs and Yes supple Thyroid: Thyroid normal (Nonpalpable) Chest Chest palpation & inspection: normal inspection of the chest Breast/axilla inspection: normal inspection of the breasts Breast/axilla palpation: normal palpation of the breasts Resp Auscultation: clear to auscultation bilaterally and no wheezes Cardio Other: S1-S2 present regular rate and rhythm GI Other: Normal bowel sounds, soft, nontender, no mass palpated General: Yes no CVA tenderness and Yes deferred (Sees [facility], has an appointment for follow-up in November 2022) Back/Spine/Pelvis Back: no CVA tenderness and No back tenderness Skin Other: Circular patch with central clearing and raised edges on left lower leg , just below her knee Neuro General: patient oriented x3, gait normal, moves all extremities, no meningeal signs, no focal motor deficits and CN's II-XI intact bilaterally Extrem General: Yes full ROM, Yes no joint enlargement, Yes no clubbing, cyanosis or edema, Yes no calf tenderness and Yes normal gait Psych Appearance: grossly normal and well kempt Mental Status: mental status grossly normal Speech and movement: Normal speech and movement present Affect: normal affect Attitude: cooperative Thought process: Normal thought process present Thought content: Normal thought content present Coding Level of Care Code Est Pt Prev Care 18-39y(71030) Diagnoses Annual visit for general adult medical examination with abnormal findings Z00.01 Tinea corporis B35.4 Obesity (BMI 35.0-39.9 without comorbidity) E66.9 Encounter for counseling regarding advance directives Z71.89 Additional Codes MACEY-7 Assessment Billing - MACEY-7 Assessment Tool: MACEY-7 Assessment 12672 ([id number]) PHQ-9 - 32830 - PHQ-9 Billing: Yes ([id number]) Vital Signs *Quality* - Advance Care Planning discussion: Completed/Scanned ([id number]) Vital Signs *Quality* - Time spent: 16-45 minutes ([id number]) Assessment & Plan Assessment & Plan (1) Annual visit for general adult medical examination with abnormal findings: Code(s): Z00.01 - Encounter for general adult medical examination with abnormal findings Plan: Will check appropriate labs. Recommended dental visit every 6 months and regular eye exams, at least every 2 years. Reminded to get schedule her appointment with her OBGYN at [facility] for her routine Pap and pelvic exam, last Pap smear was done in 2022. Instructed to do self-breast exam, and recommended to get yearly mammogram, starting at age 40. Patient is up-to-date with her flu vaccine, advised to get it yearly, does not want to get COVID vaccination, up-to-date with her Tdap. (2) Tinea corporis: Comment: left lower leg Code(s): B35.4 - Tinea corporis Category: Medical Plan: Prescription sent for clotrimazole cream 1%, apply to affected area twice a day for at least 2 weeks. (3) Obesity (BMI 35.0-39.9 without comorbidity): Code(s): E66.9 - Obesity, unspecified Category: Medical Plan: Will check TSH with free T4, emphasized importance of adherence to healthy eating habits avoidance of sugary drinks, avoid simple carbs like bagels pastries pasta, rice, avoid processed foods avoid junk food, do not drink soda, referred to methods specialist for dietary guidance. Stressed importance of doing water at intensity exercise at least 3 to 4 times a week for at least 15-30 minutes (4) Encounter for counseling regarding advance directives: Code(s): Z71.89 - Other specified counseling Plan: Initiated the conversation about Advanced Directives. Advanced Directives help patients prepare for current and future decisions about their medical treatment and place of care. Discussed with patient that it is a process where a patients current condition and prognosis are reviewed, their wishes for information regarding their illness are elicited, and likely medical dilemmas are presented and options discussed. Healthcare proxy form completed today. The form can be amended as needed, reviewed yearly and make changes as needed Orders: Orders TSH reflex Free T4 08/26/24 B35.4 - Tinea corporis, E66.9 - Obesity, unspecified, Z13.1 - Encounter for screening for diabetes mellitus, Z13.220 - Encounter for screening for lipoid disorders, Z71.89 - Other specified counseling Basic Metabolic Panel Fasting 08/26/24 B35.4 - Tinea corporis, E66.9 - Obesity, unspecified, Z13.1 - Encounter for screening for diabetes mellitus, Z13.220 - Encounter for screening for lipoid disorders, Z71.89 - Other specified counseling Aspartate Amino Transferase 08/26/24 B35.4 - Tinea corporis, E66.9 - Obesity, unspecified, Z13.1 - Encounter for screening for diabetes mellitus, Z13.220 - Encounter for screening for lipoid disorders, Z71.89 - Other specified counseling Alanine Aminotransferase 08/26/24 B35.4 - Tinea corporis, E66.9 - Obesity, unspecified, Z13.1 - Encounter for screening for diabetes mellitus, Z13.220 - Encounter for screening for lipoid disorders, Z71.89 - Other specified counseling Vitamin D 25-OH Total 08/26/24 B35.4 - Tinea corporis, E66.9 - Obesity, unspecified, Z13.1 - Encounter for screening for diabetes mellitus, Z13.220 - E ncounter for screening for lipoid disorders, Z71.89 - Other specified counseling Vitamin B12 and Folate 08/26/24 B35.4 - Tinea corporis, E66.9 - Obesity, unspecified, Z13.1 - Encounter for screening for diabetes mellitus, Z13.220 - Encounter for screening for lipoid disorders, Z71.89 - Other specified counseling Lipid Panel 08/26/24 B35.4 - Tinea corporis, E66.9 - Obesity, unspecified, Z13.1 - Encounter for screening for diabetes mellitus, Z13.220 - Encounter for screening for lipoid disorders, Z71.89 - Other specified counseling Complete Blood Count Auto Diff 08/26/24 B35.4 - Tinea corporis, E66.9 - Obesity, unspecified, Z13.1 - Encounter for screening for diabetes mellitus, Z13.220 - Encounter for screening for lipoid disorders, Z71.89 - Other specified counseling IRON PROFILE 08/26/24 Z86.2 - Personal history of diseases of the blood and blood-forming organs and certain disorders involving the immune mechanism Medications: New clotrimazole 1% 1 appl topical BID 45 grams 0RF 2 weeks B35.4 - Tinea corporis
[2024-08-26 10:09] VITALS: BP 100/74; PULSE 83; RESP 15; TEMP 36.8; O2SAT 99; BMI 35.4
--- OUTSIDE RECORDS SUMMARY | 2024-08-26 11:34 | XMS_ITS | Encounter Summary ---
Author Organization [facility] Address [address] [place] [address] Phone Care Team Providers Care Tavern Keeper Name Role Phone Lisa John NP Primary Care Provider Gregory gallagher Encounter Details Date Type Department Care Team (Late st Contact Info) Description 01/04/2017 Conversion Encounter [facility] - [address] [address] Social History Tobacco Use Types Packs/Day Years [...] on filedocumented in this encounter Care Teams Tavern Keeper Relationship Specialty Start Date End Date Lisa John NP PCP - General 12/29/16 10/25/22 documented as of this encounter
--- OUTSIDE RECORDS SUMMARY | 2024-08-26 11:34 | XMS_ITS | Clinical Summary ---
Author Organization [facility] Address [address] [place] [id number] Phone Care Team Providers Care Shift Coordinator Name Role Phone Unavailable Primary Care Provider [...] of ADD/ADHD, No family history of *Sudden /[place] under 55, Family history of Migraines, No [...] complete this topic Procedures * Due to [facility] law, this organization might not be sharing sensitive test results. Procedure Name Priority Date/Time Associated Diagnosis Comments CHLAMYDIA AND GONORRHEA, AMPLIFIED Routine 03/13/2012 3:59 PM EDT from Last 3 Months or Most Recently Relevant to Health Maintenance Results * Due to [place] [employer] law, this organization might not be sharing sensitive test results. * Chlamydia and Gonorrhoea, Amplified (03/13/2012 3:59 PM EDT) [facility] URINE AMP PROBE [facility] Comment: NO NEISSERIA GONORRHOEAE RNA DETECTED IN THIS PATIENT'S SAMPLE. ? (REFERENCE RANGE/NORMAL VALUE: NOT DETECTED) ? NOTE: THIS TEST USES WASHER AND CRUSHER TENDER MEDIATED AMPLIFICATION METHOD TO DETECT rRNA FROM [...] OTHER AGENTS. URINE CHLAMYDIA AMP PROBE NEGATIVE [facility] Comment: NO CHLAMYDIA TRACHOMATIS RNA DETECTED IN THIS PATIENT'S SAMPLE. ? (REFERENCE RANGE/NORMAL VALUE: NOT DETECTED) 03/13/2012 3:59 PM EDT Narrative [facility] - 03/13/2012 3:59 PM EDT URINE CHLAMYDIA GC AMP PROBE us Lisa John NP LAB MICROBIOLOGY - GENERAL OR DERABLES Final Result [facility] [address] [place] [address], [place] from Last 3 Months or Most Recently Relevant to Health Maintenance
--- OUTSIDE RECORDS SUMMARY | 2024-08-26 11:34 | XMS_ITS | Encounter Summary ---
Author Organization [employer] Address [address] [facility] [address] [place] [address] Care Team Providers Care Casualty Claim Adjuster Name Role Phone Unavailable Primary Care Provider [...]
--- OUTSIDE RECORDS SUMMARY | 2024-08-26 11:34 | XMS_ITS | Encounter Summary ---
Author Organization [facility] Address [address] [place] [phone] Phone Care Team Providers Care Appeals And Generalist Clerk Name Role Phone Lisa John NP Primary Care Provider Gregory gallagher Encounter Details Date Type Department Care Team (Late st Contact Info) Description 03/02/2015 Documentation [facility] [place] [facility] [place] [address] Family Medicine, Physician [facility] [place], [place] [id number] Social History Tobacco Use Types Packs/Day Years [...] on filedocumented in this encounter Care Teams Appeals And Generalist Clerk Relationship Specialty Start Date End Date Lisa John NP PCP - General 12/29/16 10/25/22 documented as of this encounter
--- OUTSIDE RECORDS SUMMARY | 2024-08-26 11:34 | XMS_ITS | Data Portability ---
Author Organization [facility], ELENODANIELLE [facility]BG[facility] (ProfNorbert) Address [address], [address] [place] [address] Assessment No assessment recorded. Plan of Treatment [...] SNOMED-CT Code Diagnosis ICD10 Code Diagnosis Note [id number] [address] Health Concerns Section Related Observation LastModified by Organization Brii [employer]rade LastModified Time None Recorded Concern Status LastModified by Organization Details LastModified Time None Recorded Advance Directives Directive None Recorded Payers Encounter Date Sequence Insurance Name Policy Number Policy Caicedo Covered Member ID Caicedo Member ID Guarantor Name 07/17/2016 1 [facility] (MEDICAID HMO) [id number] Dayanara Fang [id number] Dayanara Fang OBGyn Episode No OBEpisode recorded.
--- OUTSIDE RECORDS SUMMARY | 2024-08-26 11:34 | XMS_ITS | Clinical Summary ---
Author Organization [facility] ity Address [address] [place] [address] Care Team Providers Care Salesperson Terrazzo Tiles Name Role Phone Pura Pinto MD Primary Care Provider [phone] Surgical History Surgery Date Site/Laterality Comments APPENDECTOMY PROCEDURE: [place] APPENDECTOMY Medical History Medical History Date Comments [...] age to complete this topic Meningococcal B Vaccine Aged Out No l onger eligible based on patient's age to complete [...] age to complete this topic Care Teams Salesperson Terrazzo Tiles Relationship Specialty Start Date End Date Pura Pinto MD [address] [place] [address] Dr [address] [facility] [place] [address] PCP - General Internal Medicine 03/21/21
--- OUTSIDE RECORDS SUMMARY | 2024-08-26 11:34 | XMS_ITS | Clinical Summary ---
Author Organization [employer] Address [address] [place] [address] Care Team Providers Care Tool And Die Technician Name Role Phone Unavailable Primary Care [...] Most Recently Relevant to Health Maintenance Insurance [facility] MEDICAID STAND ADULT
== END 2024-08-26 11:31 | disposition home or self-care (01) ==
LOC: HO.HMCC 09:58
PROVIDERS: PCP Internal Medicine; Visit Provider Internal Medicine
DX: Z00.00 Encounter for general adult medical examination without abnormal findings (principal); E66.9 Obesity, unspecified; Z68.35 Body mass index [BMI] 35.0-35.9, adult; B35.4 Tinea corporis; Z71.89 Other specified counseling